=== PATIENT | female | born 1960 | race Caucasian/White ===

== ENCOUNTER → 2018-09-07 11:04 | Outpatient (CLI) | payer BC, SELFPAY ==
--- NOTE | 2018-09-07 11:14 | XR_ITS ---
XR hip LT 2-3V w/pelvis Ordering Physician: Petros Adams MD Patient Age: 57 years: Female HISTORY: ITS.REASON: follow up from reducing in ER 08/22/18 Hip replacement in 2005. Dislocated a few weeks ago TECHNIQUE: . AP pelvis AP and crosstable lateral left hip COMPARISON :08/22/2018 left hip FINDINGS Patient had dislocation at the left hip prosthesis 08/22/2018. On today's study the Left hip prosthesis demonstrates satisfactory relationships... The femoral head articulates satisfactorily with the acetabular component . The acetabular cup appears to be in good position AP view. HoweverOn Cross table lateral it seems to have a rather shallow orientation which may possibly 2. Dislocation if recurrent. There is mild accentuation of the concavity just superior to the left acetabulum from the site of dislocated femoral head . Osseous pelvis and right hip appear intact. Proximal left femur and intramedullary component of the terminal prosthesis appear intact IMPRESSION: Left hip replacement. The recent dislocation apparent reduced with femoral head component articulating satisfactorily with the acetabular cup component on today's study. Perhaps slight shallow orientation of the acetabular cup on the crosstable lateral view
== END ==
PROVIDERS: Visit Provider Orthopaedic Surgery
DX: S73.005A Unspecified dislocation of left hip, initial encounter (principal)
CPT/HCPCS: 73502

== ENCOUNTER → 2018-11-04 10:20 | Outpatient (CLI) | payer BC, SELFPAY ==
--- NOTE | 2018-11-04 10:22 | MM_ITS ---
MM Dig screening mamm BI w/CAD ORDERING PHYSICIAN : MORIAH Gray PATIENT AGE: 57 years GENDER: Female COMPARISON: Over 2011 digital mammogram May 2008 film screen mammogram INDICATION: ITS annual: Screening mammogram no hormones. No new complaints. HISTORY. Mother with breast cancer age 34 TECHNIQUE: Standard CC and MLO images were obtained. R2 CAD reviewed. FINDINGS: Mild to moderate residual fibroglandular elements towards superior breast bilaterally but no suspicious focal areas of concern. No dominant or suspicious mass. No suspicious calcifications. A progressive fatty replacement when compared back to 2012 and especially when compared back to May 2008 RIGHT BREAST:No new findings of concern LEFT BREAST:No new findings The slightly greater density towards the lateral retroareolar region on cc view is similar to 2012 and 2018 study. No significant new findings. Stable mild asymmetry. IMPRESSION: No significant new findings.. Follow-up in one year recommended No areas of significant concern Progressive fatty replacement since prior studies BI-RADS Category: 2 Benign Finding(s) RECOMMENDED FOLLOW-UP: 1YR 1 YEAR FOLLOW-UP (A letter has been sent to the patient regarding results of the study.) .
== END ==
PROVIDERS: PCP Physician Assistant; Visit Provider Physician Assistant
DX: Z12.31 Encounter for screening mammogram for malignant neoplasm of breast (principal)
CPT/HCPCS: 77067

== ENCOUNTER → 2020-03-20 09:35 | Outpatient (CLI) | payer BC, SELFPAY ==
[2020-03-20 09:40] LABS: Microscopic, Urine URINE MICROSCOPIC (MICROSCOPIC)
--- NOTE | 2020-03-20 09:54 | XR_ITS ---
PROCEDURE: XR CHEST 2V CLINICAL HISTORY: pre-op clearance Smoker COMPARISON: No exams were available for comparison FINDINGS: The cardiomediastinal silhouette and pulmonary vascularity are within normal limits. Calcified granuloma is present in the left lower lobe. The remaining lungs are clear. No acute bony abnormalities. IMPRESSION: No acute findings. Dictated by: Narciso Caputo MD 03/20/2020 16:10 Electronically signed by Narciso Caputo MD in [place] 03/20/2020 16:10
--- NOTE | 2020-03-20 10:39 | ECG_ITS ---
APPROVED REPORT Exam: Resting ECG HR:63 bpm ECG Measurements Heart Rate 63 AXES IL 130 P 60 QRSd 84 QRS 22 QT 410 T 43 QTc 419 <Conclusion> Normal sinus rhythm Possible Left atrial enlargement Low voltage QRS Incomplete RBBB NDST-T Changes Abnormal ECG Electronically signed by : Vinay Ibarra, 03/20/2020 10:49:34
[2020-03-20 10:57] LABS: Basophils # 0.3 K/mm3 (0-0.2); Basophils % 3.4 % (0.1-2.0); Eosinophils # 0.3 K/mm3 (0.0-0.4); Eosinophils % 3.6 % (0.1-12.0); Hematocrit 45.2 % (37.0-47.0); Hemoglobin 15.1 g/dL (12.2-16.2); Lymphocytes # 2.4 K/mm3 (0.7-4.5); Lymphocytes % 29.6 % (10-50); Mean Corpuscular HGB Conc 33.3 g/dL (31.8-35.4); Mean Corpuscular Hemoglobin 27.7 pg (27.0-31.2); Mean Platelet Volume 12.8 fl (7.4-10.4); Monocytes # 0.5 K/mm3 (0.1-1.0); Monocytes % 6.6 % (1.7-9.3); Neutrophils # 4.7 K/mm3 (1.8-7.8); Neutrophils % 56.7 % (37.0-80.0); Platelet Count 183 K/mm3 (142-424); Red Blood Count 5.45 M/mm3 (4.20-5.40); Red Cell Distribution Width 16.4 % (11.5-17.5); White Blood Count 8.2 K/mm3 (4.8-10.8)
[2020-03-20 11:22] LABS: Appearance,Urine CLEAR (Clear); Bilirubin,Urine Negative (Negative); Blood, Urine TRACE-I (Negative); Color,Urine YELLOW (Yellow); Glucose,Urine (UA) Negative (Negative); Ketones,Urine Negative (Negative); Leukocyte Esterase,Urine Negative (Negative); Nitrate,Urine Negative (Negative); PH,Urine 5.5 (5.0-8.5); Protein,Urine Negative (Negative); Specific Gravity, Urine 1.025 (1.005-1.030); Urobilinogen,Urine 0.2 EU/dl (0.2)
[2020-03-20 11:38] LABS: Activated Partial Thrombo Time 25.2 seconds (23.6-34.0); INR 0.97 (0.9-1.1); Prothrombin Time 9.9 seconds (9.4-11.8)
[2020-03-20 12:07] LABS: Bacteria,Urine Trace /lpf; Hyaline Casts,Urine Occasional #/lpf (0); RBC,Urine Occasional #/hpf (0-3)
[2020-03-20 13:00] LABS: Alanine Aminotransferase 13 U/L (12-78); Albumin Level 4.5 g/dl (3.5-5.0); Albumin/Globulin Ratio 1.6 (1.1-1.8); Alkaline Phosphatase 57 U/L (38-126); Anion Gap 10.6 mEq/L (5-15); Aspartate Amino Transferase 17 U/L (14-36); Bilirubin,Total 0.3 mg/dl (0.2-1.3); Blood Urea Nitrogen 12 mg/dl (7-17); Calcium 9.8 mg/dl (8.4-10.2); Carbon Dioxide 27 mmol/L (22.0-30.0); Chloride 103 mmol/L (98-107); Estimated Glomerular Filt Rate 86 ml/min (>60); GFR (African American) 104 ML/MIN (>60); Globulin 2.9 g/dL (1.3-3.2); Glucose 114 mg/dl (74-100); Potassium 4.6 mmoL/L (3.5-5.1); Sodium 136 mmol/L (136-145); Total Protein,Serum 7.4 g/dl (6.3-8.2)
[2020-03-20 13:16] LABS: Hemoglobin A1C 5.8 % (4.0-6.0)
[2020-03-21 12:25] LABS: Prealbumin 21 mg/dL (10-36)
== END ==
PROVIDERS: Visit Provider Physician Assistant
DX: Z01.818 Encounter for other preprocedural examination (principal); M25.561 Pain in right knee
CPT/HCPCS: 36415; 71046; 80053; 81001; 83036; 84134; 85025; 85610; 85730; 93005

== ENCOUNTER → 2020-04-04 10:29 | Outpatient (CLI) | payer BC, SELFPAY ==
--- NOTE | 2020-04-04 10:30 | NM_ITS ---
APPROVED REPORT Exam: Nuclear Stress Test Indication: abn ecg..pre-op knee surgery Patient Location: Outpatient Stress Tech: Senait Monet [place] Tech:Kyung Gold DREAJama[place] RT(R)(N) Ht: 5 ft 3 in Wt: 185 lbs HR: 63 bpm BP: 125/81 mmHg BSA: 1.87 m2 BMI: 32.7 History: abn ecg..pre-op knee surgery Procedure: Patient received a 0.4 mg of intravenous Lexiscan, resting heart rate 63 bpm, resting blood pressure 125/81 mmHg, with Lexiscan maximum heart rate achived was 107 bpm which is Less than 85 % of the maximum predicted heart rate and blood pressure was 132/75 mmHg. With Lexiscan, patient denied any complaint of chest pain. Electrocardiogram Resting electrocardiogram showed sinus rhythm, with Lexiscan there is less than 1.[address] segment depression noted from the baseline EKG. The EKG portion of the Lexiscan Myoview is nondiagnostic. Cardiac Stress and Resting SPECT Images: Cardiac Stress and Resting SPECT images were obtained using technetium 99m Myoview 31.7 mCi stress and 10.32 mCi at rest. Gated SPECT with analysis of segmental wall motion and calculation of the ejection fraction also done. Cardiac stress and resting SPECT images show uniform myocardial activity without segmental perfusion abnormality, computer derived ejection fraction is 61% with no regional wall motion abnormality, right ventricle is normal size and contractility. Conclusion: 1. The EKG portion of the Lexiscan Myoview is nondiagnostic. 2. No scintigraphic evidence of reversible ischemia seen, computer derived ejection fraction is 61% with no regional wall motion abnormality, right ventricle is normal size and contractility. 3. Normal Lexiscan Myoview study. Electronically signed by : Yordan Holman, 04/04/2020 14:17:28
--- NOTE | 2020-04-04 11:11 | CA_ITS ---
APPROVED REPORT EXAM: Comprehensive 2D, Doppler, and color-flow Echocardiogram Director Of Photography: Ela Anders RDCS Ht: 5 ft 3 in Wt: 185lbs BSA: 1.87 BP: 127/74 mmHg Indications: ABN EKG PRE-OP KNEE 2D Dimensions LVOT 1.82 cm (M/F) 1.5-2.5 M-Mode Dimensions RVDd 2.45 cm (0.9-2.6) LVDd 4.67 cm (3.5-5.7) LVDs 3.62 cm (3.5-5.7) IVSd 0.84 cm (0.6-1.1) PWd 0.56 cm (0.6-1.1) EF (Teich) 45.20% FS 22.50% EDV (Teich) 100.80 mL ESV (Teich) 55.20 mL LV Diastology E/A Ratio 1.36 Mitral Valve MV A Velocity 44.00 (40-130 cm/s) Left Ventricle Left atrium is normal size, left ventricle is normal size, there is no concentric left ventricular hypertrophy, visually estimated ejection fraction 55% with no regional wall motion abnormality. Diastolic parameters are within normal range. Right Ventricle Right atrium right ventricle is normal size and contractility. Aortic Valve Aortic valve is grossly normal, there is no aortic stenosis aortic insufficiency. Mitral Valve Mitral valve is grossly normal, there is mild mitral regurgitation. Tricuspid Valve Tricuspid valve is grossly normal, there is mild tricuspid regurgitation. Tricuspid regurgitation jet velocity is inadequate for calculation of the right ventricular systolic pressure. Pulmonic Valve Pulmonic valve is poorly visualized. Great Vessels Aortic root is normal size. Pericardium No significant pericardial effusion noted. Conclusion 1. Normal left ventricular size, preserved left ventricular systolic function, visually estimated ejection fraction 55% with no regional wall motion abnormality, diastolic parameters are within normal range. 2. Mild mitral and tricuspid regurgitation. 3. No significant pericardial effusion noted. Electronically signed by : Yordan Holman, 04/04/2020 15:14:56
--- NOTE | 2020-04-04 12:17 | HMH.ITSHM ---
Current Home Medications as stated by this patient Jenni Hill or outside medical sales representative. [] diclofenac gabapentin
--- NOTE | 2020-04-04 13:30 | CA_ITS ---
APPROVED REPORT Exam: Pharmacologic Technologist: Senait Monet, Ht: 5 ft 3 in Wt: 185 lbs BSA: 1.87 m2 Indications: Abn EKG Medical History Medications: Gabapentin,,,,, Diclofenac,,,,, OxYCODONE,,,,, Cardiac Risk Factors: FHX of CAD, Smoking Stress Test Details Test: LEXISCAN Reason for pharmacologic stress test: physical limitation. HR Resting HR: 70 bpm Max Heart Rate (APMHR): 162 bpm Max HR Achieved: 108 bpm Target HR (85% APMHR): 137 bpm % of APMHR: 66 BP Resting BP: 125.0/81.0 mmHg Max BP: 134.0/79.0 mmHg ECG Clinical Exercise duration: 04:10 min Highest Stage Achieved: Stress ECG Conclusion positive for SOA, malaise, no CP rare PAC, occ fusion beat Exaggeration of baseline ST-T abns inferiorly, NS ST-T changes laterally non diagnostic lexiscan stress myoview images reported separately Electronically signed by : Yordan Holman, 04/04/2020 14:03:32
== END ==
PROVIDERS: PCP Physician Assistant; Visit Provider Physician Assistant
DX: Z01.810 Encounter for preprocedural cardiovascular examination (principal); R94.31 Abnormal electrocardiogram [ECG] [EKG]; Z72.0 Tobacco use
CPT/HCPCS: 78452; 93017; 93306; A9502; J2785

== ENCOUNTER → 2020-04-09 09:48 | Outpatient (CLI) | payer BC, SELFPAY ==
--- NOTE | 2020-04-09 09:48 | MM_ITS ---
PROCEDURE: MM DIG SCREENING MAMM BI W/CAD Digital Breast Tomosynthesis Included CLINICAL INDICATION: Screening mammogram There is a history of breast cancer in the patient's mother diagnosed at age 34. COMPARISON: DIGMAMMS MAMMOGRAM SCREEN-SOLUTION MAKE UP OPERATOR N/C from 05/25/2008 [facility] DIGITAL MAMM-SCREEN BILATERAL from 12/01/2011 [facility] MM Dig screening mamm BI w/CAD from 11/04/2018 TECHNIQUE: Standard CC and MLO images and 3D Tomosynthesis was obtained. R2 CAD reviewed. FINDINGS: Scattered fibroglandular densities are seen throughout both breasts and the findings are bilateral and symmetrical. There is a mole marker on each breast. There is no suspicious lesion in either breast and no suspicious microcalcifications. IMPRESSION: Fibrofatty parenchyma with no suspicious lesions seen BI-RAD Category: 2 Benign Finding(s) FOLLOW-UP: 1 Year Follow-up (A letter has been sent to the patient regarding results of the study.) Dictated by: Dr. Jonh Ladd MD 04/10/2020 19:[address] Jonh Ladd MD in [place] 04/10/2020 19:08
== END ==
PROVIDERS: PCP Physician Assistant; Visit Provider Physician Assistant
DX: Z12.31 Encounter for screening mammogram for malignant neoplasm of breast (principal)
CPT/HCPCS: 77063; 77067

== ENCOUNTER → 2020-12-06 13:41 | Outpatient (CLI) | payer BC, SELFPAY ==
[2020-12-10 15:37] LABS: Chromium, Plasma 4.4 ug/L (0.1-2.1)
[2020-12-10 19:28] LABS: Cobalt, Plasma 2.3 ug/L (0.0-0.9)
== END ==
PROVIDERS: Visit Provider Orthopaedic Surgery
DX: T84.84XA Pain due to internal orthopedic prosthetic devices, implants and grafts, initial encounter (principal)
CPT/HCPCS: 36415; 82495; 83018

== ENCOUNTER 2021-01-04 08:50 | Emergency (ER) | payer BC, SELFPAY ==
[2021-01-04] VITALS (20 sets, daily range): BP systolic 117–150; BP diastolic 67–91; PULSE 63–87; RESP 9–16; TEMP 36.6; O2SAT 87–100; BMI 35.4
--- NOTE | 2021-01-04 09:07 | XR_ITS ---
PROCEDURE: XR HIP LT 2-3V W/PELVIS CLINICAL INDICATION: PAIN COMPARISON: CR HIPCMLT XR hip LT 2-3V w/pelvis from 09/07/2018 FINDINGS: There is a dislocated left hip prosthesis. The femur is dislocated superiorly and posterior to the acetabular component. There is generalized vascular calcification. No obvious fracture. IMPRESSION: Status post left hip hemiarthroplasty with dislocated femoral component Dictated by: Narciso Caputo MD 01/04/2021 09:40 Narciso Caputo MD in [place] 01/04/2021 09:40
--- NOTE | 2021-01-04 09:23 | PC.NURSE ---
pt in ct
--- NOTE | 2021-01-04 09:34 | PC.NURSE ---
pt back from [facility] and was moved to room 2 so she could have her put back in place
--- NOTE | 2021-01-04 09:38 | HMH.EDGENADL ---
ED Disposition Clinical Impression: Hip dislocation, left, Presence of left artificial hip joint Disposition: Home, Self-Care Condition on Discharge: Good Referrals: Brittany Almaguer PA [Primary Care Provider] - - Critical Care Critical Care Time: No Attestation: On 01/04/21, the high probability of a clinically significant, sudden or life threatening deterioration of the following system(s) required my full and direct attention, intervention and personal management. The time I documented below is in addition to time spent performing reported procedures but includes the following listed in this critical care notation. Medical Decision Making - Medical Records Medical records reviewed: Yes: I reviewed the patient's medical records. - Miguel Inquiry Pt receiving controlled substance: No Vital Signs: 01/04/21 08:51 01/04/21 09:37 Temperature 98 F Temperature Source Oral Pulse Rate [Radial] 80 71 Respiratory Rate 16 14 Blood Pressure [Right Arm] 123/80 130/80 Blood Pressure Mean [Right Arm] 94 96 Blood Pressure Source [Right Arm] Automatic Cuff Blood Pressure Position [Right Arm] Sitting Supine 02 Sat by Pulse Oximetry 98 95 Oxygen Delivery Method Room Air Room Air Orders (Tests/Meds): ED MEDICATIONS Discontinued Medications Generic Name Dose Route Start Last Admin Trade Name Freq PRN Reason Stop Dose Admin Morphine Sulfate 4 mg 01/04/21 09:14 01/04/21 09:14 Morphine 4mg/Ml Syringe IV 01/04/21 09:15 4 mg ONCE ONE Administration Ondansetron HCl 4 mg 01/04/21 09:14 01/04/21 09:14 Ondansetron 4mg/2ml Vial IV 01/04/21 09:15 4 mg ONCE ONE Administration ORDERS Category Date Time Status XR hip LT 2-3V w/pelvis Stat Exams 01/04/21 09:53 Ordered - Radiology Data #1 Image(s): Hip Image Reviewed: Yes I reviewed the patient's radiology results Preliminary Findings: Abnormal superiorly dislocated L.artificial hip; no acute fx General Adult HPI - General Chief complaint: PAIN Stated complaint: hip pain, possible displacement Time Seen by Provider: 01/04/21 09:20 Mode of Arrival: Ambulatory Limitations: No Limitations Description of Symptoms (Recalled from ER Triage Doc. by RN): TO ED PER PVT CAR WITH C/O LT SIDE HIP PAIN SINCE 4AM STATES I THINK MY HIP IS OUT OF SHOCKET HX OF HIP REPLACEMENT. PT STATES SHE WAS TURNING OVER AND PUSHED UP WITH FEET AND EXPERIENCED PAIN. SCHEDULED FOR ANOTHER HIP SURGERY LT IN JANUARY. - History of Present Illness HPI narrative: -year-old female that presents with left hip pain after rolling over in the bed. Patient reports having had left hip replacement and has had pain like this previously whenever she dislocated her hip. Symptoms began approximately 5 hours prior to arrival patient thought she could get the hip back in place herself. She was unable to do so. Pain is sharp constant worse with movement does not radiate. No other injuries no other or complaints. Patient denies any fever chills chest pain shortness of breath or headache/focal neurologic deficit. - Related Data Home Medications Medication Instructions Recorded Confirmed Diclofenac Sodium [Diclofenac 75mg 75 mg PO BID 08/22/18 01/04/21 Tab] oxycodone-acetaminophen 5 mg-325 1 tab PO BID PRN tab 03/20/20 01/04/21 mg tablet gabapentin enacarbil 600 mg 600 mg PO TID tab 04/03/20 01/04/21 tablet,extended release Allergies Allergy/AdvReac Type Severity Reaction Status Date / Time tramadol Allergy Mild Verified 04/12/20 11:01 [facility] History - Hepatitis A Screen Drug use history?: No High risk sexual behaviors?: No History of sexually transmitted infection?: No Currently employed?: No Childcare worker?: No Do you have indoor plumbing?: Yes Do you have electricity?: Yes Attestation statement:: This patient has been screened for Hepatitis A risk factors. I have reviewed the patient's past medical history: Yes Ot
--- NOTE | 2021-01-04 09:52 | PC.NURSE ---
pt placed on non rebreather
--- NOTE | 2021-01-04 09:53 | XR_ITS ---
PROCEDURE: XR HIP LT 2-3V W/PELVIS CLINICAL INDICATION: post reduction COMPARISON: CR HIPCMLT XR hip LT 2-3V w/pelvis from 09/07/2018 CR XR HIP LT 2-3V W/PELVIS from 01/04/2021 FINDINGS: There has been interval reduction the hemiarthroplasty dislocation. There is good alignment. No acute fracture apparent. IMPRESSION: Interval reduction femoral prosthesis dislocation Dictated by: Narciso Caputo MD 01/04/2021 11:33 Narciso Caputo MD in [place] 01/04/2021 11:33
--- NOTE | 2021-01-04 10:24 | PC.NURSE ---
pt responsive to verbal stimuli
--- NOTE | 2021-01-04 10:45 | PC.NURSE ---
pt awake taking fluids, SO at bedside.
== END 2021-01-04 12:18 | disposition home or self-care (01) ==
PROVIDERS: Emergency Provider Emergency Medicine; PCP Physician Assistant
DX: T84.021A Dislocation of internal left hip prosthesis, initial encounter (principal); X50.9XXA Other and unspecified overexertion or strenuous movements or postures, initial encounter; Y92.013 Bedroom of single-family (private) house as the place of occurrence of the external cause
CPT/HCPCS: 27266; 73502; 96365; 96375; 96376; 99152; 99153; 99285; J2405

== ENCOUNTER → 2021-01-14 11:08 | Outpatient (CLI) | payer BC, SELFPAY ==
[2021-01-14 11:15] LABS: Microscopic, Urine URINE MICROSCOPIC (MICROSCOPIC)
--- NOTE | 2021-01-14 11:40 | ECG_ITS ---
APPROVED REPORT Exam: Resting ECG HR:69 bpm ECG Measurements Heart Rate 69 AXES MO 132 P 65 QRSd 86 QRS 77 QT 376 T -2 QTc 402 Conclusion Sinus rhythm with premature supraventricular complexes Possible Anterior infarct, age undetermined Abnormal ECG Electronically signed by : Cirilo Carrillo, 01/15/2021 17:48:00
--- NOTE | 2021-01-14 11:41 | XR_ITS ---
PROCEDURE: XR CHEST 2V CLINICAL HISTORY: HX OF SOB UPON EXERTION, PREOPERATIVE COMPARISON: CR XR CHEST 2V from 03/20/2020 FINDINGS: The cardiomediastinal silhouette and pulmonary vascularity are within normal limits. The lungs are clear without infiltrates, suspicious nodules, or pleural effusions. There are calcified granulomata left lower lobe and there are tiny calcified left hilar nodes. No acute bony abnormalities. IMPRESSION: No acute findings. Dictated by: Dr. Jonh Ladd MD 01/14/2021 12:28 Dr. Jonh Ladd MD in [place] 01/14/2021 12:28
[2021-01-14 11:50] LABS: Basophils # 0.2 K/mm3 (0-0.2); Basophils % 1.5 % (0.1-2.0); Eosinophils # 0.2 K/mm3 (0.0-0.4); Eosinophils % 2.1 % (0.1-12.0); Hematocrit 48.7 % (37.0-47.0); Hemoglobin 16.2 g/dL (12.2-16.2); Lymphocytes # 2.9 K/mm3 (0.7-4.5); Lymphocytes % 29.1 % (10-50); Mean Corpuscular HGB Conc 33.2 g/dL (31.8-35.4); Mean Corpuscular Hemoglobin 29.8 pg (27.0-31.2); Mean Corpuscular Volume 89.9 fl (81-99); Mean Platelet Volume 11.6 fl (7.4-10.4); Monocytes # 0.7 K/mm3 (0.1-1.0); Monocytes % 6.5 % (1.7-9.3); Neutrophils % 60.7 % (37.0-80.0); Platelet Count 170 K/mm3 (142-424); Red Blood Count 5.41 M/mm3 (4.20-5.40); White Blood Count 9.9 K/mm3 (4.8-10.8)
[2021-01-14 11:55] LABS: Appearance,Urine CLEAR (Clear); Bilirubin,Urine Negative (Negative); Blood, Urine 1+ (Negative); Color,Urine YELLOW (Yellow); Glucose,Urine (UA) Negative (Negative); Ketones,Urine Negative (Negative); Leukocyte Esterase,Urine Negative (Negative); Nitrate,Urine Negative (Negative); Protein,Urine Negative (Negative); Urobilinogen,Urine 0.2 EU/dl (0.2)
[2021-01-14 12:05] LABS: Hemoglobin A1C 6.2 % (4.0-6.0)
[2021-01-14 12:11] LABS: Activated Partial Thrombo Time 26.8 seconds (22.8-30.6); INR 0.93 (0.9-1.1)
[2021-01-14 12:18] LABS: Alanine Aminotransferase 16 U/L (12-78); Albumin Level 4.6 g/dl (3.5-5.0); Albumin/Globulin Ratio 1.6 (1.1-1.8); Alkaline Phosphatase 63 U/L (38-126); Anion Gap 12.4 mEq/L (5-15); Aspartate Amino Transferase 20 U/L (14-36); Bilirubin,Total 0.5 mg/dl (0.2-1.3); Blood Urea Nitrogen 12 mg/dl (7-17); Calcium 10.1 mg/dl (8.4-10.2); Carbon Dioxide 26 mmol/L (22.0-30.0); Chloride 105 mmol/L (98-107); Estimated Glomerular Filt Rate 86 ml/min (>60); GFR (African American) 104 ML/MIN (>60); Globulin 2.9 g/dL (1.3-3.2); Glucose 121 mg/dl (74-100); Potassium 4.4 mmoL/L (3.5-5.1); Sodium 139 mmol/L (136-145); Total Protein,Serum 7.5 g/dl (6.3-8.2)
[2021-01-14 12:39] LABS: WBC,Urine Occasional #/hpf (0-3)
[2021-01-14 12:40] LABS: Bacteria,Urine Trace /lpf
[2021-01-15 11:22] LABS: Prealbumin 23 mg/dL (10-36)
== END ==
PROVIDERS: Emergency Medicine; Visit Provider Orthopaedic Surgery
DX: Z01.818 Encounter for other preprocedural examination (principal); E87.6 Hypokalemia
CPT/HCPCS: 36415; 71046; 80053; 81001; 83036; 84134; 85025; 85610; 85730; 93005

== ENCOUNTER → 2021-06-13 10:02 | Outpatient (CLI) | payer BC, SELFPAY ==
[2021-06-18 20:12] LABS: Alprazolam Negative (Cutoff=100); Benzodiazepines Negative ng/mL (Cutoff=100); Clonazepam Negative (Cutoff=100); Flurazepam Negative (Cutoff=100); Gabapentin,Urine 406.7 ug/mL (.); Lorazepam Negative (Cutoff=100); Midazolam Negative (Cutoff=100); Opiates Negative ng/mL (Cutoff=100); Temazepam Negative (Cutoff=100); Triazolam Negative (Cutoff=100)
[2021-06-20 08:17] LABS: Cannabinoid Negative (Cutoff=10)
[2021-06-24 11:04] LABS: Buprenorphine NEGATIVE
== END ==
PROVIDERS: Visit Provider Anesthesiology Pain Medicine
DX: Z79.899 Other long term (current) drug therapy (principal)
CPT/HCPCS: 80307; 80346; 80348; 80349; 80361; G0480

== ENCOUNTER 2021-10-15 10:00 | Outpatient (RCR) | payer BC, SELFPAY | END 2021-10-15 10:05 | disposition home or self-care (01) | LOC: PT 10:00 | PROVIDERS: PCP Physician Assistant; Visit Provider Orthopaedic Surgery | DX: M25.552 Pain in left hip (principal); Z96.642 Presence of left artificial hip joint | CPT/HCPCS: 97010; 97014; 97110; 97163; 97164; G0283 ==

== ENCOUNTER → 2022-01-08 13:37 | Outpatient (CLI) | payer BC, SELFPAY ==
[2022-01-12 14:17] LABS: Cobalt, Plasma <1.0 ug/L (0.0-0.9)
== END ==
PROVIDERS: Visit Provider Orthopaedic Surgery
DX: T84.84XA Pain due to internal orthopedic prosthetic devices, implants and grafts, initial encounter (principal)
CPT/HCPCS: 36415; 82495; 83018

== ENCOUNTER 2022-02-05 09:00 | Outpatient (RCR) | payer BC, SELFPAY | END 2022-02-05 09:05 | disposition home or self-care (01) | LOC: PT 09:00 | PROVIDERS: PCP Nurse Practitioner Family; Visit Provider Orthopaedic Surgery | DX: M25.552 Pain in left hip (principal); Z96.642 Presence of left artificial hip joint | CPT/HCPCS: 97010; 97014; 97110; 97112; 97140; 97163; 97164; 97530; G0283 ==

== ENCOUNTER → 2022-06-30 09:49 | Outpatient (CLI) | payer BC, SELFPAY | PROVIDERS: PCP Emergency Medicine; Visit Provider Surgery | DX: Z01.812 Encounter for preprocedural laboratory examination (principal); Z20.822 Contact with and (suspected) exposure to COVID-19; Z12.11 Encounter for screening for malignant neoplasm of colon | CPT/HCPCS: C9803; U0003; U0005 ==

== ENCOUNTER 2022-07-03 07:28 | Day surgery (SDC) | payer BC, SELFPAY ==
[2022-07-03 08:03] VITALS: BP 132/87; PULSE 74; RESP 18; TEMP 36.2; O2SAT 94
[2022-07-03 08:21] VITALS: O2SAT 94
--- NOTE | 2022-07-03 08:43 | EXP.ANES.CKL ---
[facility] Medical History (Updated 06/30/22 @ 12:25 by Rakel Hermosillo RN) Cataract Cervical cancer Preoperative clearance Tobacco dependence syndrome Surgical History (Updated 06/30/22 @ 12:25 by Rakel Hermosillo RN) History of hysterectomy History of knee replacement History of right hip replacement History of tonsillectomy Family History (Updated 06/30/22 @ 12:26 by Rakel Hermosillo RN) Other Family history of cancer Family history of hypertension Social History (Updated 06/30/22 @ 12:27 by Rakel Hermosillo RN) Smoking Status: Current every day smoker tobacco type: cigarettes packs per day: 1 alcohol intake: never substance use type: denies use current occupational status: employed Travel in the last 8 weeks: None caffeine: Yes [facility] Anesthesia Checklist Patient Identification Patient Identification: Arm Band Structural Data Admitted From: Home Planned Operative Procedure/s: colonoscopy Consent for Planned Operative Procedure(s) Verified: Yes Verified Documents: Surgical Consent and History and Physical NPO Status Verified Time NPO: 00:00 Additional verifications Anesthesia Reactions: Yes (ponv) Airway Assessment C-Spine Mobility Assessed: Yes TMJ Mobility Assessed: Yes Dentition: Good Dentition Neurological Assessment Level of Consciousness: Awake and Alert Anesthesia Plan Anesthesia Risk discussed: Yes Anesthesia Plan: Verified ASA Class: II Anesthesia Type: MAC
--- NOTE | 2022-07-03 09:14 | HMH.SCOPE ---
Procedure: Date: 07/03/22 Patient Date of :: 1960 Procedure Performed:: Total colonoscopy to terminal ileum with polypectomy using snare and biopsy Indications:: Patient is a 61-year-old female. She has opted for Cologuard screening for surveillance. She had this performed several times. Apparently most recent Cologuard screening was inconclusive. She was scheduled for colonoscopy Performing Provider:: Mark Call MD Referring Provider:: Nestor Gamez MD Sedation:: MAC sedation Procedure:: Patient was taken to endoscopy procedure room. She was positioned in lateral decubitus position. Adequate intravenous sedation was achieved with anesthesia titration propofol. Variable stiffness Olympus colonoscope was inserted via the anus. It was advanced to the cecum. Ileocecal valve and appendiceal orifice were clearly identified. Colonic preparation was good and visualization was good. Colonoscope was advanced a short distance into the terminal ileum which appeared grossly normal. Colonoscope was slowly withdrawn through the colon with careful surveillance. In the distal sigmoid colon there was a tiny diminutive polyp removed with biopsy forceps. In the rectosigmoid colon there was a tiny diminutive polyp removed with biopsy forceps. In the rectum there were several hyperplastic appearing polyps, 2 removed with snare and 2 with biopsy forceps. There was one that appeared somewhat potentially adenomatous measuring about 3 mm. Retroflexion within the rectum revealed nonbleeding internal hemorrhoids. Colonoscope was withdrawn. Findings:: Polyps as noted above, small and diminutive. 1 potentially adenomatous appearing rectal polyp measuring about 3 mm Recommendations:: Follow-up colonoscopy based on pathology. Likely 5 years Complications:: None immediately apparent Estimated blood obtained (mL): 3
[2022-07-03 09:25] VITALS: BP 128/81; PULSE 82; RESP 16; O2SAT 97
[2022-07-03 09:35] VITALS: BP 131/84; BP 157/88; PULSE 75; PULSE 83; RESP 16; TEMP 36.4; O2SAT 95; O2SAT 97
[2022-07-03 09:45] VITALS: BP 137/99; PULSE 83; RESP 16; TEMP 36.4; O2SAT 98
== END 2022-07-03 09:45 | disposition home or self-care (01) ==
PROVIDERS: PCP Emergency Medicine; Visit Provider Surgery
PROC: 0DJD8ZZ Inspection of Lower Intestinal Tract, Via Natural or Artificial Opening Endoscopic (ICD-10-PCS; CPT 45380; principal; 2022-07-03 08:30)
DX: Z12.11 Encounter for screening for malignant neoplasm of colon (principal); K63.5 Polyp of colon; Z72.0 Tobacco use; Z79.899 Other long term (current) drug therapy
CPT/HCPCS: 45380; 45385; J2704

== ENCOUNTER → 2022-07-05 10:17 | Outpatient (CLI) | payer BC, SELFPAY | PROVIDERS: PCP Emergency Medicine; Visit Provider Orthopaedic Surgery | DX: T84.84XA Pain due to internal orthopedic prosthetic devices, implants and grafts, initial encounter (principal) | CPT/HCPCS: 36415 ==

== ENCOUNTER 2022-07-30 09:00 | Outpatient (RCR) | payer BC, SELFPAY | END 2022-07-30 09:05 | disposition home or self-care (01) | LOC: PT 09:00 | PROVIDERS: PCP Nurse Practitioner Family; Visit Provider Anesthesiology Pain Medicine | DX: M25.552 Pain in left hip (principal); M25.561 Pain in right knee | CPT/HCPCS: 97010; 97014; 97110; 97112; 97140; 97163; 97164; 97530; 97535; G0283 ==

== ENCOUNTER → 2023-10-11 08:18 | Outpatient (CLI) | payer MEDICARE, BC, SELFPAY ==
[2023-10-11 18:29] LABS: Influenza A, PCR Not Detected (NotDetected); Influenza B, PCR Not Detected (NotDetected)
[2023-10-11 20:29] LABS: Coronavirus 19, PCR Detected (NotDetected)
== END ==
PROVIDERS: PCP Student in an Organized Health Care Education/Training Program; Visit Provider Student in an Organized Health Care Education/Training Program
DX: R05.9 Cough, unspecified (principal); U07.1 COVID-19
CPT/HCPCS: 87636

== ENCOUNTER 2025-04-03 12:00 | Outpatient (CLI) | payer MEDICARE, SELFPAY ==
--- OUTSIDE RECORDS SUMMARY | 2025-01-30 06:15 | XMS_ITS ---
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 Name Role Phone Randy David Primary Care Provider [phone] Jah Jiménez Unavailable [phone] Dom Garsia Unavailable [phone] Allergies No Known Allergies REASON FOR VISIT OFFICE VISIT Medications Medication SIG (Take, Route, Frequency, Duration) Notes Start Date End Date Status Diclofenac Sodium 75 MG TAKE 1 TABLET BY MOUTH EVERY 12 HOURS WITH FOOD Orally Twice a day for 30 days 04/30/2025 Active Narcan 4 MG/0.1ML as directed Nasally 09/14/2024 Active Albuterol Sulfate HFA 108 (90 Base) MCG/ACT Inhalation for 30 Days Active predniSONE 20 MG Oral for 5 Days Not-Taking Azithromycin 250 MG Oral for 5 Days Active Meloxicam 15 MG Oral for 4 Days Not-Taking Fnfbkkypc-Ikptalnr-DL 30-2-10 MG/5ML Oral for 4 Days Not-Taking oxyCODONE-Acetaminophen 5-325 MG 1tablet Orally twice daily for 30 days 01/05/2025 03/02/2025 Active Benzonatate 100 MG Oral for 10 Days Active Social History Tobacco use other than smoking: Question Answer Notes Are you an other tobacco user? No Vital Signs Blood pressure systolic 136 mm Hg 01/31/20 25 Blood pressure diastolic 75 mm Hg 025 Heart Rate 76 /min 01/30/2025 Height 63 in 01/30/2025 Weight 185 lbs 01/30/2025 BMI 32.77 kg/m2 01/30/2025 Oximetry 94 % 01/30/2025 Encounters Encounter Location Date Provider Diagnosis [facility] [address] [place] [address] 01/30/2025 Jah Trubrandie Right knee pain M25.561 and Left hip pain M25.552 Assessments Encounter Date Diagnosis (ICD Code) Assessment Notes Treatment Notes Treatment Clinical Notes Section Notes 01/30/2025 Right knee pain (ICD-10 - M25.561) 01/30/2025 Left hip pain (ICD-10 - M25.552) Plan Of Treatment Medication Medication Name Sig Start Date Stop Date Notes Diclofenac Sodium 75 MG TAKE 1 TABLET BY MOUTH EVERY 12 HOURS WITH FOOD Orally Twice a day for 30 days 04/30/2025 oxyCODONE-Acetaminophen 5-32 5 MG 1tablet Orally twice daily for 30 days 01/05/2025 03/02/2025 Next Appt Details Provider Name:Jah boss, 04/24/2025 09:15:00 AM, [address] [place], [address], Progress Notes * February,aDOB:1960 (64 yo F)Acc No.[id number]:01/30/2025 Progress Notes Patient: Jenin HAMILTON Provider: Tessa Jiménez MD :1960 A ge:64 Y S ex:Female Date:01/30/2025 Address:[address] [place], [place] [id number] Pcp:David Padilla Subjective: * Chief Complaints: * 1 . OFFICE VISIT. * HPI: P ain Management: Assessment and followup F ollowup plan documented : Y es. I nterim History: Patient presents for a follow up for chronic pain management. Patient's CC: left hip,right knee and right ankle, which they score a 4/10 NRS at rest that increases to 10/10 NRS with activity. Pt describes this pain as aching,shooting,stabbing and throbbing. Pt reports that being up durning the day i ncreases this pain. Pt reports that resting and taking prescribed medication helps reduce this pain. Pt reports no changes in health history and denies any changes in medications from outside providers. Denies adverse effects to prescribed medication. Reports taking medications as prescribed. Refills for percocet and diclofenac were provided today, dates verified with JOSE. Last UDS was reviewed and was compliant for prescribed medication. Patient has benefited from Interventional Treatment in the past regarding their pain. They have not scheduled treatment at this time. We will follow up accordingly and continue medication management. Based on the physical exam and clinical findings, we will schedule 1 month follow up. Goal of treatment decrease left hip,right knee and right ankle pain. Scribe-SB. H ip/Thigh: EXAMINATION: MRI of the left hip without contrast dated 02/2019. SEDATION: None. HISTORY: Left hip dislocated 07/2018, with constant pain in the left hip and thigh. Per the patient, the hip feels warm all the time and has a noticeable indentation in the posterior thigh since dislocation. COMPARISON: No prior imaging is available for comparison. PROCEDURE: MRI of the left hip without contrast using the 3 phil magnet with Imitix protocol. Bilateral coronal T1 weighted and STIR, axial T1 and T2 weighted scans, and left-sided sagittal T2 weighted scans performed. FINDINGS: There is a large amount of image distortion and susceptibility artifact generated from the left hip prosthesis. This does limit evaluation of the left hemipelvis and left hip. There are mild arthritic changes of the right hip. There is a small amount of right joint fluid, likely within physiologic limits. The visualized hamstring tendons are grossly intact. There is colonic diverticula. The urinary bladder is distended, limiting evaluation. There is mild diffuse muscular atrophy of the pelvis. IMPRESSION: 1. Limited evaluation of the left hip due to susceptibility artifact generated from orthopedic hardware. Correlation with plain radiographs and/or CT may be beneficial for further evaluation. 2. Colonic diverticula. 3. Mild arthritic changes of the right hip with small amount of joint fluid present. * ROS: C ervical: Denies N rito pain. G eneral/Constitutional: Denies F atigue. A dmits S leep disturbance. D enies W eight gain. D enies W eight loss. E ndocrine: Denies A cne. D enies C old intolerance. R espiratory: Denies B reathing pattern. D enies C hest pain.? C ardiovascular: Denies C hest pain. D enies C hest pain at rest.? G astrointestinal: Denies A bdominal pain. D enies D ifficulty swallowing. H ematology: Denies D izziness. D enies F ever. M usculoskeletal: Admits J oint stiffness. A dmits M uscle aches.?Admits P ainful joints. A dmits S wollen joints. A dmits W eakness. P eripheral Vascular: Denies A bsent pulses in hands. D enies A bsent pulses in feet. A dmits P ainful extremities. N eurologic: Admits B alance difficulty. A dmits G ait abnormality. A dmits L ow back pain. A dmits P ain. A dmits T ingling/Numbness. ? P sychiatric: Denies A nxiety. D enies D epressed mood. ? * Medical History: C ancer/Tumor , Hypercholesterolemia. * Surgical History: T onsilectomy 1973, Hysterectomy 1992, Eye Surgery , Hip Replacement Surgery 2005, RIGHT KNEE REPLACEMENT 04/2020. * Hospitalization/Major Diagno stic Procedure: D adam Past Hospitalization. * Family History: M other: alive. F ather: , diagnosed with Cancer, Diabetes, Hypertension. M aternal Grandmother: . M aternal Grandfather: . P aternal Grandmother: . P aternal Grandfather: . * Social History: T obacco Use: T obacco Use/Smoking A re you a: current smoker. T obacco use other than smoking A re you an other tobacco user? N o. D rugs/Alcohol: D rugs H ave you used drugs other than those for medical reasons in the past 12 months??No. A lcohol Screen (Audit-C) D id you have a drink containing alcohol in the past year?: No, Points: 0, Interpretation: Negative. C affeine I ntake: 3 -4 cups per day. W eekly Consumption A mount of Beer N one, G lasses of Wine N one, N umber of mixed drinks N one. M iscellaneous: C affeine: yes, frequency:, 4 cups a day of coffee. Marital status: . H ousehold: H ousehold M arital status: w pedro, Enmanuel bindu of education: f inished high school. * Medications: T aking Benzonatate 100 MG Capsule Oral , Taking Azithromycin 250 MG Tablet Oral , Taking Albuterol Sulfate HFA 108 (90 Base) MCG/ACT Aerosol Solution Inhalation , Taking Narcan 4 MG/0.1ML Liquid as directed Nasally , Taking oxyCODONE- Acetaminophen 5-325 MG Tablet 1tablet Orally twice daily , stop date 02/01/2025, Not-Taking predniSONE 20 MG Tablet Oral , Not-Taking Meloxicam 15 MG Tablet Oral , Not- Taking Iylacsmrk-Hynukbjg-MB 30-2-10 MG/5ML Syrup Oral , Medication List reviewed and reconciled with the patient * Allergies: N .K.D.A. Objective: * Vitals: H R:76/min, BP:136/75mm Hg, Ht: 63 in, Wt:185lbs, BMI:32.77Index, Oxygen sat %:94, Pain scale:41-10, Ht-cm: 160.02 cm, Wt-k.92 kg. Assessment: * Assessment: 1. R ight knee pain - M25.561 2 . L eft hip pain - M25.552 Plan: * Treatment: * Immunizations: Immunization record has been reviewed and updated. * Preventive Medicine: Screenings: T OBACCO USE SCREENING: T he patient smoked: c igarettes, S moking tobacco was last used: t jacob, T kalyan pack years of use is: P t reports smoking 1/2 to one pack per day. . . ... .... CONTROLLED SUBSTANCES VERBAL EDUCATION ... PER RULES OF [place]- may require weaning of medication, if rules are not followed ... 1. Do not share medicine with anyone 2. Do not share other people's controlled medicine 3. Do not use your medicine to get high, binge, or as a substitute for Depression Medication 4. Please have a family or close friend help you monitor intake and how you are doing with medication 5. Please keep medication in a safe location such that others cannot access it 6. Do not sell medication 7. Take medication per as prescribed unless emergency and discussed with me 8. Do not take it upon yourself to make dosage changes 9. Do not stockpile or maritza medications 10. Do not take distantly prescribed medications Current regimen 11. Do not take illicit drugs including marijuana 12. Refrain from or consume alcohol only in moderation 13. If you develop a respiratory infection decrease dosage or call office for instructions 14. Follow rules stated in written contract 15. Do not barter medication for favors of any kind 16. Do not crush medication or use not as directed 17. Narcan has prescribed and should be available in case of accidental over sedation 18. notify me if receiving controlled medications from other physicians 19. I will ask you at each visit if you have any concerns with addiction misuse or craving of medication 20. If taking a benzodiazepine such as Xanax Ativan Valium Klonopin or Restoril there is an increase of overdose secondary to the additive power of benzodiazepine and opioids please take less at different times and if possible be mindful that this can affect your breathing. If you have over sedation please use Narcan. 21. This applies two Z drugs or sleep aids as well as gabapentinoids such as Neurontin and Lyrica and muscle relaxants 22. Regarding marijuana the governors decree does not allow for patients on chronic pain medication or other controlled medicines to use marijuana legally do not use marijuana 23. Please check and ensure that your Narcan nasal spray is not outdated if it has been please let me know I will send a new prescription if you cannot afford it or need more you can contact the [facility] addiction hotline at [phone] and they should be able to provide you with free Narcan. * * Electronic signature of Abhilash Jiménez MD on 04/03/2025 at 12:04 PM EDT Sign off status: Pending * Provider: Tessa Jiménez MD Date: 0 01/30/2025 Generated for Yuval kendrick/Da/Cataitting on: 0 04/03/2025 12:04 PM EDT History and Physical Notes * HPI (History of Present Illness) Category Sub-Category Detail Notes Category Not es Hip/Thigh EXAMINATION: MRI of the left hip without contrast dated 02/2019. SEDATION: None. HISTORY: Left hip dislocated 07/2018, with constant pain in the left hip and thigh. Per the patient, the hip feels warm all the time and has a noticeable indentation in the posterior thigh since dislocation. COMPARISON: No prior imaging is available for comparison. PROCEDURE: MRI of the left hip without contrast using the 3 phil magnet with Imitix protocol. Bilateral coronal T1 weighted and STIR, axial T1 and T2 weighted scans, and left-sided sagittal T2 weighted scans performed. FINDINGS: There is a large amount of image distortion and susceptibility artifact generated from the left hip prosthesis. This does limit evaluation of the left hemipelvis and left hip. There are mild arthritic changes of the right hip. There is a small amount of right joint fluid, likely within physiologic limits. The visualized hamstring tendons are grossly intact. There is colonic diverticula. The urinary bladder is distended, limiting evaluation. There is mild diffuse muscular atrophy of the pelvis. IMPRESSION: 1. Limited evaluation of the left hip due to susceptibility artifact generated from orthopedic hardware. Correlation with plain radiographs and/or CT may be beneficial for further evaluation. 2. Colonic diverticula. 3. Mild arthritic changes of the right hip with small amount of joint fluid present. Interim History Patient presents for a follow up for chronic pain management. Patient's CC: left hip,right knee and right ankle, which they score a 4/10 NRS at rest that increases to 10/10 NRS with activity. Pt describes this pain as aching,shooting,stab angus and throbbing. Pt reports that being up durning the day increases this pain. Pt reports that resting and taking prescribed medication helps reduce this pain. Pt reports no changes in health history and denies any changes in medications from outside providers. Denies adverse effects to prescribed medication. Reports taking medications as prescribed. Refills for percocet and diclofenac were provided today, dates verified with JOSE. Last UDS was reviewed and was compliant for prescribed medication. Patient has benefited from Interventional Treatment in the past regarding their pain. They have not scheduled treatment at this time. We will follow up accordingly and continue medication management. Based on the physical exam and clinical findings, we will schedule 1 month follow up. Goal of treatment decrease left hip,right knee and right ankle pain. Scribe-SB Pain Management Assessment and followup Followup plan documented :: Yes
--- OUTSIDE RECORDS SUMMARY | 2025-02-27 06:15 | XMS_ITS ---
Author Organization [facility] Address [address] [place] [address] Care Team Providers Care Corporate Relations Manager Name Role Phone DoraDavid thomas Primary Care Provider [phone] Jah Jiménez Unavailable [phone] Dom Garsia Unavailable [phone] Allergies No Known Allergies REASON FOR VISIT OFFICE VISIT Medications Medication SIG (Take, Route, Frequency, Duration) Notes Start Date End Date Status predniSONE 20 MG Oral for 5 Days Not-Taking Narcan 4 MG/0.1ML as directed Nasally 09/14/2024 Active Diclofenac Sodium 75 MG TAKE 1 TABLET BY MOUTH EVERY 12 HOURS WITH FOOD Orally Twice a day for 30 days 04/30/2025 Active Meloxicam 15 MG Oral for 4 Days Not-Taking Etdqkoekk-Lzmztmgy-GD 30-2-10 MG/5ML Oral for 4 Days Not-Taking oxyCODONE-Acetaminophen 5-325 MG 1tablet Orally twice daily for 30 days 02/04/2025 03/29/2025 Active Azithromycin 250 MG Oral for 5 Days Active Albuterol Sulfate HFA 108 (90 Base) MCG/ACT Inhalation for 30 Days Active Benzonatate 100 MG Oral for 10 Days Active Social History Tobacco use other than smoking: Question Answer Notes Are you an other tobacco user? No Vital Signs Blood pressure systolic 144 mm Hg 02/28/20 25 Blood pressure diastolic 98 mm Hg 025 Heart Rate 76 /min 02/27/2025 Height 63 in 02/27/2025 Weight 185 lbs 02/27/2025 BMI 32.77 kg/m2 02/27/2025 Oximetry 94 % 02/27/2025 Encounters Encounter Location Date Provider Diagnosis [facility] [address] [place] [address] 02/27/2025 Jah Jiménez Right knee pain M25.561 ; Radiculopathy, lumbar region M54.16 and Left hip pain M25.552 Assessments Encounter Date Diagnosis (ICD Code) Assessment Notes Treatment Notes Treatment Clinical Notes Section Notes 02/27/2025 Right knee pain (ICD-10 - M25.561) PERCOCET, DNF 03/06/25 02/27/2025 Radiculopathy, lumbar region (ICD-10 - M54.16) 02/27/2025 Left hip pain (ICD-10 - M25.552) Plan Of Treatment Medication Medication Name Sig Start Date Stop Date Notes oxyCODONE-Acetaminophen 5-32 5 MG 1tablet Orally twice daily for 30 days 02/04/2025 03/29/2025 Treatment Notes Assessment Notes Right knee pain PERCOCET, DNF 5 Next Appt Details Follow Up: 4 Weeks, Reason: OFFICE VISIT,MEDICATION REFILL Provider Name:Jah boss, 04/24/2025 09:15:00 AM, [address] [place], [address], Progress Notes * Eliane ESPINOZAaDOB:1960 (64 yo F)Acc No.[id number]:02/27/2025 Progress Notes Patient: Jenni HAMILTON Provider: Tessa Jiménez MD :1960 A ge:64 Y S ex:Female Date:02/27/2025 Address:[address] [place], [place] [id number] Pcp:David Padilla Subjective: * Chief Complaints: * 1 . OFFICE VISIT. * HPI: I nterim History: Patient presents for a follow-up for chronic pain and pain management. Patient's CC: Left Hip Pain, which they score a 3+/10 NRS at rest that increases by end of day to a 10+/10 NRS. Pt describes this pain as constant aching, shocking, stabbing, throbbing tingling with increased daily fatigue. Pt reports that walking, standing, bending, housework, cooking, playing golf, and sitting upright increases this pain. Pt reports a lot of walking and standing, activity that has increased her pain. Pt reports she continues to play golf three times weekly due to interventional treatment and medication regimen of her chronic pain. Pt reports that laying down, resting, and prescribed pain medication help relieve her pain. Patient also complains of right knee pain that is constant and reports it will swell after standing for extended period of time. Pt reports no changes in health history and denies any changes in medications from outside providers. Denies adverse effects to prescribed medication. Reports taking medications as prescribed. Medications and interventional treatment are helping with function and ADLs such as playing golf almost daily. Percocet refill issued today. Last UDS was reviewed and was compliant for prescribed medication. Patient has not scheduled treatment for her pain. We will follow up accordingly. Based on the physical exam and clinical findings, we will schedule an office visit in one month and continue present pain management. SCRIBE~AK. Santos mcdonald Management: Assessment and followup [facility] plan documented : Y es. H ip/Thigh: EXAMINATION: MRI of the left [...] contrast using the 3 phil magnet with EchoPixel protocol. Bilateral coronal T1 weighted and STIR, [...] with small amount of joint fluid present. R ight knee: Pt completed a right knee surgery 04/2020 and has fallen a few times since surgery. Pt states she's had constant pain since surgery. Pt has completed physical therapy that gave her 40% of her pain and helped with strength. Pt has tried opiods therapy with current pain medication of Percocet that helps with relief of her pain as well as muscle relaxers, massage therapy, and heated recliner with massager that helps elevate her knee. * ROS: C ervical: Denies N rito [...] REPLACEMENT 04/2020. * Hospitalization/Major Diagno stic Procedure: Pratik medina Past Hospitalization. * Family History: M other: [...] ousehold M arital status: w pedro, Enmanuel ruano of education: f inished high school. * Medications: T aking Benzonatate 100 MG Capsule Oral , Taking Azithromycin 250 MG Tablet Oral , Taking Albuterol Sulfate HFA 108 (90 Base) MCG/ACT Aerosol Solution Inhalation , Taking Narcan 4 MG/0.1ML Liquid as directed Nasally , Taking Diclofenac Sodium 75 MG Tablet Delayed Release TAKE 1 TABLET BY MOUTH EVERY 12 HOURS WITH FOOD Orally Twice a day , stop date 04/30/2025, Taking oxyCODONE-Acetaminophen 5-325 MG Tablet 1tablet Orally twice daily , stop date 03/02/2025, Not-Taking predniSONE 20 MG Tablet Oral , Not-Taking Meloxicam 15 MG Tablet Oral , Not-Taking Xxicdsbcl-Jqdybfnz-BI 30-2-10 MG/5ML Syrup Oral , Medication List reviewed and reconciled with the patient * Allergies: N .K.D.A. Objective: * Vitals: H R:76/min, BP:144/98mm Hg, Ht: 63 in, Wt:185lbs, BMI:32.77Index, Oxygen sat %:94, Pain scale:31-10, Ht-cm: 160.02 cm, Wt-k.92 kg. * Examination: C QM Exceptions: G ENERAL APPEARANCE: Well appearing, well nourished in no distress. Oriented x 3, normal mood and affect. ABDOMEN: No tenderness, organomegaly, masses, or hernia. EXTREMITIES: No edema, peripheral pulses intact. MUSCULOSKELETAL:LEFT HIP TENDERNESS // POSITIVE LOG ROLL. No abnormalities of digits and nails. No misalignment, asymmetry, crepitation, defects, tenderness, masses, effusions, decreased range of motion, instability, atrophy or abnormal strength or tone in: Right upper extremity,Left upper extremity,Right lower extremity,Left lower extremity. TTP right knee LUMBAR SPINE: No visible scoliotic deformity. AXIAL TENDERNESS WITH FLEXION AND WEIGHT BEARING. Moderate midline percussion or palpation tenderness on LEFT SIDE. Moderate paraspinous tenderness. No detectable paraspinous muscle spasm. LEFT SIJ- TTP. MOTOR: Muscle strength is normal for age and body habitus in the upper limbs, proximally and distally. Muscle tone is normal. No atrophy or fasciculations noted in upper or lowerextremity musculature. SENSORY: Sensory exam is intact to pinprick and light touch in the upper or lower limbs with no significant asymmetry or distal decrement noted. DTRs: Deep tendon reflexes are 1-2+ and symmetrical in the upper or lower limbs. PSYCHIATRIC: Oriented X3, intact recent and remote memory. Assessment: * Assessment: 1. R ight knee pain - M25.561 2 . R adiculopathy, lumbar region - M54.16? 3. L eft hip pain - M25.552 Plan: * Treatment: * Immunizations: Immunization record has been reviewed and updated. * Preventive Medicine: Screenings: T OBACCO USE SCREENING: T he patient smoked: zelda brambila, S moking tobacco was last used: t [place] james pack years of use is: P t reports smoking 1/2 to one pack per day. . . ... .... CONTROLLED SUBSTANCES VERBAL EDUCATION ... PER RULES OF [place]- may require weaning of medication, if rules [...] or need more you can contact the [facility] addiction hotline at [phone] and they should be able to provide you with free Narcan. * Follow Up: 4 Weeks (Reason: OFFICE VISIT,MEDICATION REFILL) * * Electronic signature of Abhilash Jiménez MD on 04/03/2025 at 12:04 PM EDT Sign off status: Pending * Provider: Tessa Jiménez MD Date: 0 02/27/2025 Generated for Yuval kendrick/Da/Miguelsmitting on: 0 04/03/2025 12:04 PM EDT History [...] contrast using the 3 phil magnet with EchoPixel protocol. Bilateral coronal T1 weighted and STIR, [...] present. Interim History Patient presents for a follow-up for chronic pain and pain management. Patient's CC: Left Hip Pain, which they score a 3+/10 NRS at rest that increases by end of day to a 10+/10 NRS. Pt describes this pain as constant aching, shocking, stabbing, throbbing tingling with increased daily fatigue. Pt reports that walking, standing, bending, housework, cooking, playing golf, and sitting upright increases this pain. Pt reports a lot of walking and standing, activity that has increased her pain. Pt reports she continues to play golf three times weekly due to interventional treatment and medication regimen of her chronic pain. Pt reports that laying down, resting, and prescribed pain medication help relieve her pain. Patient also complains of right knee pain that is constant and reports it will swell after standing for extended period of time. Pt reports no changes in health history and denies any changes in medications from outside providers. Denies adverse effects to prescribed medication. Reports taking medications as prescribed. Medications and interventional treatment are helping with function and ADLs such as playing golf almost daily. Percocet refill issued today. Last UDS was reviewed and was compliant for prescribed medication. Patient has not scheduled treatment for her pain. We will follow up accordingly. Based on the physical exam and clinical findings, we will schedule an office visit in one month and continue present pain management. SCRIBE~AK Pain Management Assessment and followup Followup plan documented :: Yes Examination Category Sub-Category Detail Notes Category Not es CQM Exceptions GENERAL APPEARANCE: Well appearing, well nourished in no distress. Oriented x 3, normal mood and affect. ABDOMEN: No tenderness, organomegaly, masses, or hernia. EXTREMITIES: No edema, peripheral pulses intact. MUSCULOSKELETAL:LEFT HIP TENDERNESS // POSITIVE LOG ROLL. No abnormalities of digits and nails. No misalignment, asymmetry, crepitation, defects, tenderness, masses, effusions, decreased range of motion, instability, atrophy or abnormal strength or tone in: Right upper extremity,Left upper extremity,Right lower extremity,Left lower extremity. TTP right knee LUMBAR SPINE: No visible scoliotic deformity. AXIAL TENDERNESS WITH FLEXION AND WEIGHT BEARING. Moderate midline percussion or palpation tenderness on LEFT SIDE. Moderate paraspinous tenderness. No detectable paraspinous muscle spasm. LEFT SIJ- TTP. MOTOR: Muscle strength is normal for age and body habitus in the upper limbs, proximally and distally. Muscle tone is normal. No atrophy or fasciculations noted in upper or lowerextremity musculature. SENSORY: Sensory exam is intact to pinprick and light touch in the upper or lower limbs with no significant asymmetry or distal decrement noted. DTRs: Deep tendon reflexes are 1-2+ and symmetrical in the upper or lower limbs. PSYCHIATRIC: Oriented X3, intact recent and remote memory
--- NOTE | 2025-04-03 | XR_ITS ---
FINAL REPORT CLINICAL HISTORY: RADICULOPATHY COMPARISON: None FINDINGS: The vertebrae are normal height. There is mild levoscoliosis of the lumbar spine of less than 10 degrees. The disc spaces are preserved. Prevertebral soft tissues are unremarkable. There is no instability with flexion or extension. IMPRESSION: No acute process. Reviewed, Interpreted and Dictated by Nain Avila MD Transcribed by Ingrid Gomez Authenticated and [facility]
--- OUTSIDE RECORDS SUMMARY | 2025-04-03 12:05 | XMS_ITS | Patient Health Record ---
Author Organization [facility] Address [address] [place] [address] Care Team Providers Care Corporate Webmaster Name Role Phone Randy David Primary Care Provider Jah Jiménez Unavailable [phone] Dom Garsia Unavailable [phone] Marshall Love Unavailable Unavailable Allergies No Known Allergies Results Component Value Reference Range Notes [facility] (Not yet reviewed by provider) Interpretation:Normal Performing Lab: Notes/Report: Normal [facility] (Not yet re viewed by provider) Interpretation:Normal Performing Lab: Notes/Report: Normal [facility] (Not yet re viewed by provider) Interpretation:Normal Performing Lab: Notes/Report: Normal [facility] (Not yet reviewed by provider) Interpretation:Negative Performing Lab: Notes/Report: Negative Reason For Referral No Information Medications Medication SIG (Take, Route, Frequency, Duration) Notes Start Date End Date Status Azithromycin 250 MG Oral for 5 Days Active Albuterol Sulfate HFA 108 (90 Base) MCG/ACT Inhalation for 30 Days Active Narcan 4 MG/0.1ML as directed Nasally 09/14/2024 Active oxyCODONE-Acetaminophen 5-325 MG 1tablet Orally twice daily for 30 days 03/06/2025 05/03/2025 Active Diclofenac Sodium 75 MG TAKE 1 TABLET BY MOUTH EVERY 12 HOURS WITH FOOD Orally Twice a day for 30 days 04/30/2025 Active predniSONE 20 MG Oral for 5 Days Not-Taking Meloxicam 15 MG Oral for 4 Days Not-Taking Ucptwypwb-Yhppdeao-ZG 30-2-10 MG/5ML Oral for 4 Days Not-Taking Benzonatate 100 MG Oral for 10 Days Active Immunizations Vaccine Route Administration Date Status Comme nts Influenza (split), 3 yrs and above Unknown 09/09/2016 Others Influenza (split), 3 yrs and above Unknown 09/23/2017 Refused Influenza (split), 3 yrs and above Unknown 12/28/2017 Others Influenza (split), 3 yrs and above Unknown 09/22/2018 Others Influenza (split), 3 yrs and above Unknown 11/15/2018 Administered Influenza (split), 3 yrs and above Unknown 01/16/2021 Administered Influenza (split), 3 yrs and above Unknown 07/10/2021 Refused Influenza (split), 3 yrs and above Unknown 08/07/2021 Administered Influenza (split), 3 yrs and above Unknown 09/09/2021 Refused Influenza (split), 3 yrs and above Unknown 07/03/2023 Administered Influenza (split), 3 yrs and above Unknown 08/13/2023 Administered Pneumococcal conjugate PCV 13 Unknown 01/16/2021 Administered Pneumococcal conjugate PCV 13 Unknown 07/10/2021 Refused Pneumococcal conjugate PCV 13 Unknown 08/07/2021 Administered Pneumococcal conjugate PCV 13 Unknown 09/07/2023 Refused Influenza, unspecified formulation (CPT 14812 Inactive) Unknown 08/27/2015 Administered GIVEN BY PCP PER PT Influenza, unspecified formulation (CPT 10761 Inactive) Unknown 08/27/2015 Refused Influenza, unspecified formulation (CPT 54832 Inactive) Unknown 02/11/2017 Administered Pneumococcal unspecified Unknown 08/15/2015 Pending Pneumococcal unspecified Unknown 09/09/2016 Pending Pneumococcal unspecified Unknown 02/11/2017 Pending Pneumococcal unspecified Unknown 09/23/2017 Others Pneumococcal unspecified Unknown 12/28/2017 Refused Pneumococcal unspecified Unknown 09/22/2018 Pending Pneumococcal unspecified Unknown 07/02/2023 Administere d Social History Tobacco use other than smoking: Question Answer Notes Are you an other tobacco user? No Problems Problem Type SNOMED Code ICD Code Onset Dates Problem Status W/U Status Risk Notes Problem Tobacco user (106146663) Nicotine dependence, unspecified, uncomplicated (F17.200) Active confirmed Problem 51769162 Other chronic pain (G89.29) Active confirmed Problem 296385003 Chronic pain syndrome (G89.4) Active confirmed Problem Lumbosacral spondylosis without myelopathy (99402938) Other spondylosis with radiculopathy, lumbar region (M47.26) Active confirmed Problem Lumbosacral spondylosis without myelopathy (00501059) Other spondylosis, lumbar region (M47.896) Active confirmed Problem Displacement of lumbar intervertebral disc without myelopathy (49319425) Other intervertebral disc displacement, lumbar region (M51.26) Active confirmed Problem Lumbar radiculopathy (052324124) Radiculopathy, lumbar region (M54.16) Active confirmed Problem 50454486 Left hip pain (M25.552) Active confirmed Problem Arthralgia of the lower leg (449441292) Right knee pain (M25.561) Active confirmed Problem Sacrococcygeal disorder (917906358) Sacral pain (M53.3) Active confirmed Problem Arthralgia of the lower leg (022656538) Left knee pain (M25.562) Active confirmed Problem Osteoarthritis of knee (643189814) Osteoarthritis of right knee (M17.9) Active confirmed Problem Arthralgia of the ankle and/or foot (389041655) Right ankle pain (M25.571) Active confirmed Problem 955093501 Osteoarthritis o f multiple joints, unspecified osteoarthritis type (M15.9) Active confirmed Problem 786785964 Pain of right lower extremity (M79.604) Active confirmed Problem Chronically on opiate therapy (Z79.891) Active confirmed Vital Signs Heart Rate 78 /min 04/03/2025 Oximetry 94 % 04/03/2025 Blood pressure diastolic 91 mm Hg 04/03/2025 Height 63 in 04/03/2025 Blood pressure systolic 163 mm Hg 04/03/2025 Weight 185 lbs 04/03/2025 BMI 32.77 kg/m2 04/03/2025 Encounters Encounter Location Date Provider Diagnosis [facility] [address] [place] [address] 04/20/2024 Jah Jiménez Right knee pain M25.561 [facility] [facility] [address] [place] [address] 05/18/2024 Jah Jiménez Left hip pain M25.552 and Radiculopathy, lumbar region M54.16 [facility] [address] [place] [address] 06/20/2024 Jah Klickovich Left hip pain M25.552 and Right knee pain M25.561 [place] [facility] [address] [place] [address] 07/20/2024 Jah Klickovich Left hip pain M25.552 and Right knee pain M25.561 [place] [facility] [address] [place] [address] 10/19/2024 Jah Klickovich Left hip pain M25.552 and Right knee pain M25.561 [place] [facility] [address] [place] [address] 12/05/2024 Jah Klickovich Left hip pain M25.552 [place] [facility] [address] [place] [address] 01/02/2025 Jah Klickovich Left hip pain M25.552 [place] [facility] [address] [place] [address] 01/30/2025 Jah Klickovich Right knee pain M25.561 and Left hip pain M25.552 [place] [facility] [address] [place] [address] 02/27/2025 Jah Klickovich Right knee pain M25.561 ; Radiculopathy, lumbar region M54.16 and Left hip pain M25.552 [place] [facility] [address] [place] [address] 04/03/2025 Jah Truickrjh Radiculopathy, lumbar region M54.16 ; Right knee pain M25.561 and Left hip pain M25.552 [place] [facility] [address] [place] [address] 08/17/2024 Marshall Anderson Left hip pain M25.552 and Sacral pain M53.3 [place] [facility] [address] [place] [address] 09/14/2024 Marshall Love Sacral pain M53.3 ; Chronic pain syndrome G89.4 ; Left hip pain M25.552 and Right knee pain M25.561 [facility] [place] [address] 04/03/2025 Jah Jiménez Radiculopathy, lumbar region M54.16 [place] [facility] [address] [place] [address] 04/20/2024 Jah Klickovich Right knee pain M25.561 [place] [facility] [address] [place] [address] 05/18/2024 Jah Klickovich Left hip pain M25.552 [place] [facility] [address] [place] [address] 06/20/2024 Jah Klickovich Left hip pain M25.552 [place] [facility] [address] [place] [address] 07/17/2024 Jah Klickovich Right knee pain M25.561 [place] [facility] [address] [place] [address] 07/20/2024 Jah Klickovich Left hip pain M25.552 [place] [facility] [address] [place] [address] 08/17/2024 Jah Klickovich Left hip pain M25.552 [facility] [address] [place] [address] 09/14/2024 Jah Klickovich Left hip pain M25.552 [place] [facility] [address] [place] [address] 10/19/2024 Jah Klickovich Left hip pain M25.552 [facility] [address] [place] [address] 10/19/2024 Jah Klickovich [facility] [address] [place] [address] 12/05/2024 Jah Klickovich Left hip pain M25.552 [facility] [address] [place] [address] 01/02/2025 Jah Klickovich Left hip pain M25.552 [facility] [address] [place] [address] 01/31/2025 Jah Klickovich Right knee pain M25.561 [facility] [address] [place] [address] 02/27/2025 Jah Jiménez Right knee pain M25.561 Assessments Encounter Date Diagnosis (ICD Code) Assessment Notes Treatment Notes Treatment Clinical Notes Section Notes 04/20/2024 Right knee pain (ICD-10 - M25.561) PERCOCET, DNF 04/22/24 04/20/2024 Right knee pain (ICD-10 - M25.561) 05/18/2024 Radiculopathy , lumbar region (ICD-10 - M54.16) 05/18/2024 Left hip pain (ICD-10 - M25.552) PERCOCET, DNF 05/22/24 05/18/2024 Left hip pain (ICD-10 - M25.552) 06/20/2024 Left hip pain (ICD-10 - M25.552) 06/20/2024 Left hip pain (ICD-10 - M25.552) PERCOCET DNF 06/21/24 06/20/2024 Right knee pain (ICD-10 - M25.561) 07/17/2024 Right knee pain (ICD-10 - M25.561) 07/20/2024 Left hip pain (ICD-10 - M25.552) PERCOCET, DNF 07/21/24 07/20/2024 Right knee pain (ICD-10 - M25.561) 07/20/2024 Left hip pain (ICD-10 - M25.552) 08/17/2024 Left hip pain (ICD-10 - M25.552) PERCOCET DNF 08/20/24 08/17/2024 Sacral pain (ICD-10 - M53.3) 08/17/2024 Left hip pain (ICD-10 - M25.552) 09/14/2024 Chronic pain syndrome (ICD-10 - G89.4) 09/14/2024 Sacral pain (ICD-10 - M53.3) 09/14/2024 Left hip pain (ICD-10 - M25.552) 10/19/2024 Left hip pain (ICD-10 - M25.552) PERCOCET, MAY FILL TODAY 10/19/2024 Left hip pain (ICD-10 - M25.552) 12/05/2024 Left hip pain (ICD-10 - M25.552) 12/05/2024 Left hip pain (ICD-10 - M25.552) 01/02/2025 Left hip pain (ICD-10 - M25.552) 01/02/2025 Left hip pain (ICD-10 - M25.552) 01/30/2025 Right knee pain (ICD-10 - M25.561) 01/31/2025 Right knee pain (ICD-10 - M25.561) 02/27/2025 Right knee pain (ICD-10 - M25.561) PERCOCET, DNF 03/06/25 02/27/2025 Right knee pain (ICD-10 - M25.561) 04/03/2025 Radiculopathy , lumbar region (ICD-10 - M54.16) 04/03/2025 Radiculopathy , lumbar region (ICD-10 - M54.16) 04/03/2025 Right knee pain (ICD-10 - M25.561) 02/27/2025 Radiculopathy , lumbar region (ICD-10 - M54.16) 01/30/2025 Left hip pain (ICD-10 - M25.552) 10/19/2024 Right knee pain (ICD-10 - M25.561) 09/14/2024 Left hip pain (ICD-10 - M25.552) 09/14/2024 Right knee pain (ICD-10 - M25.561) 02/27/2025 Left hip pain (ICD-10 - M25.552) 04/03/2025 Left hip pain (ICD-10 - M25.552) 05/18/2024 Other Patient requires opioid medication to effectively manage their allowed condition. The opioid medication helps improve the patient's pain control and ability to function. Patient requires monitoring for appropriate opioid medication use with routine urine drug screens. Screening will be performed based on risk level unless a clinical need arises for more frequent testing to confirm treatment compliance. Recent UDS and MIGUEL reviewed. The patient was counseled on the appropriate use of the opioid medication, its potential dangers and the responsibilities that go along with being prescribed opioid medications including safe storage, use and disposal of the medication. Patient was also counseled on the adverse effects of long-term opioid use including hyperalgesia, tolerance, decreased immune function, and changes to the body's natural hormones. The patient also understands the potential risks for respiratory depression especially if the medication is combined with other central nervous system depressants such as benzodiazepines or alcohol. 07/20/2024 Other Patient denies new symptoms. She continues to get functional relief from current medication regiment. MIGUEL and recent UDS reviewed. Patient requires opioid medication to manage chronic pain condition. These medications help improve patients pain control and ability to function while completing ADLs. Patient has been counselled on appropriate storage, use and potential misuse of these medications and verbalized understanding and agrees to comply with guidelines set forth in narcotic agreement signed by patient. Patient requires opioid medication to effectively manage their allowed condition. The opioid medication helps improve the patient's pain control and ability to function. Patient requires monitoring for appropriate opioid medication use with routine urine drug screens. Screening will be performed based on risk level unless a clinical need arises for more frequent testing to confirm treatment compliance. UDS COLLECTED randomly today. Patient is considered moderate risk category considering opiod usage for chronic pain. Drug testing is important as it reduces the risk of unrecognized drug usage that could affect prescribing regimen. Patients fail to disclose illicit use, other prescribers prescriptions, non-prescribed drugs, or overuse of prescribed medications.Monitori ng chronic opioid therapy is critical because risks and benefits do not remain static.UDS will check for consistency of medication usage. 08/17/2024 Other The patient is stable with the medications. Denies any side effects from the medications or complications from the medications. The patient claims that they are taking medications as prescribed which is helping them stay functional with their ADLs. Miguel or OARRS and UDS reviewed. The patient has an upcoming appointment. Chart reviewed today by practitioner prior to issuance of prescription refill. 09/14/2024 Other The patient is stable with the medications. Denies any side effects from the medications or complications from the medications. The patient claims that they are taking medications as prescribed which is helping them stay functional with their ADLs. Miguel or OARRS and UDS reviewed. The patient has an upcoming appointment. Chart reviewed today by practitioner prior to issuance of prescription refill. NARCAN One of the adverse effects that can occur with chronic opioid usage that we discussed is that it can cause respiratory depression. With the side effect of the opioid, patient could be at increased risk for respiratory depression. He understands the concern and side effects of the narcotics. He will be given Narcan to have at his home in the event of any changes in respiration. Narcan is prescribed due to use of opioid medication. Use and necessity discussed with patient. Seen in consultation today. Care plan and medications reviewed by Dr. Jiménez. Plan Of Treatment Pending Test Test Name Order Date MRI : Lumbar without contrast 07/14/2022 [facility] 06/03/2017 [facility] 07/14/2022 [facility] 01/12/2023 [facility] 04/20/2023 [facility] 07/13/2023 [facility] 10/21/2023 [facility] 01/18/2024 XR LUMBAR SPINE FLEXION AND EXTENSION ON LY 04/03/2025 MRI LUMBAR SPINE WO CONTRAST 04/03/2025 [facility] 04/20/2024 [facility] 07/20/2024 [facility] 10/19/2024 [facility] 01/30/2025 Next Appt Details Provider Name:Jah Ximena boss, 04/24/2025 09:15:00 AM, [address] [place], [address], Insurance Providers Payer Name Payer Address Payer Phone Subscriber Number Group Number Insured Name Patient Relationship to Insured Coverage Start Date Coverage End Date [employer] [address] [address] [place] [address] [id number] February, Self - patient is the insured 4 Medical (General) History Medical History History ICD Code Cancer/Tumor Hypercholesterolemia Surgical History Surgery Date(Month/Year) Tonsilectomy 1974 Hysterectomy 1992 Eye Surgery Hip Replacement Surgery 2006 RIGHT KNEE REPLACEMENT 04/2020
== END 2025-04-03 23:59 | disposition home or self-care (01) ==
LOC: RAD 12:02
PROVIDERS: PCP Physician Assistant; Visit Provider Anesthesiology Pain Medicine
DX: M41.86 Other forms of scoliosis, lumbar region (principal)
CPT/HCPCS: 72114

== ENCOUNTER 2025-07-03 09:33 | Outpatient (CLI) | payer MEDICARE, SELFPAY ==
--- OUTSIDE RECORDS SUMMARY | 2025-04-24 05:15 | XMS_ITS ---
Author Organization [facility] Address [address] [place] [address] Care Team Providers Care Inventory Taker Name Role Phone David Padilla Primary Care Provider Jah Jiménez Unavailable [phone] Dom Garsia Unavailable [phone] REASON FOR VISIT OFFICE VISIT Encounters Encounter Location Date Provider Diagnosis [facility] [address] [place] [address] 04/24/2025 Jah Jiménez Plan Of Treatment Next Appt Details Provider Name:Jah boss, 07/31/2025 08:30:00 AM, [address] [place], [address], Progress Notes * February,aDOB:1960 (64 yo F)Acc No.[id number]:04/24/2025 Progress Notes Patient: Jenni HAMILTON Provider: Tessa Jiménez MD :1960 A ge:64 Y S ex:Female Date:04/24/2025 Address: [address] [facility] Pcp:David Padilla Subjective: * Chief Complaints: * 1 . OFFICE VISIT. * Medical History: Objective: * Vitals: Assessment: Plan: * Treatment: * * Electronic signature of Abhilash Jiménez MD on 07/03/2025 at 09:39 AM EDT Sign off status: Pending * Provider: Tessa Jiménez MD Date: 0 04/24/2025 Generated for Yuval kendrick/Da/Kevon on: 0 07/03/2025 09:39 AM EDT
--- OUTSIDE RECORDS SUMMARY | 2025-05-29 04:45 | XMS_ITS ---
Author Organization [facility] Address [address] [place] [address] Care Team Providers Care Cupola Melting Supervisor Name Role Phone DoraDavid thomas Primary Care Provider Jah Jiménez Unavailable [phone] Dom Garsia Unavailable [phone] Allergies No Known Allergies REASON FOR VISIT RIGHT L3-4 AND L4-5 TRANSFORAMINAL STEROID INJECTION Medications Medication SIG (Take, Route, Frequency, Duration) Notes Start Date End Date Status Azithromycin 250 MG Oral; Duration: 5 Days Active Benzonatate 100 MG Oral; Duration: 10 Days Active Albuterol Sulfate HFA 108 (90 Base) MCG/ACT Inhalation; Duration: 30 Days Active oxyCODONE-Acetaminophen 5-325 MG 1tablet Orally twice daily; Duration: 30 days 05/05/2025 06/28/2025 Active Diclofenac Sodium 75 MG TAKE 1 TABLET BY MOUTH EVERY 12 HOURS WITH FOOD Orally Twice a day Active Narcan 4 MG/0.1ML as directed Nasally 09/14/2024 Active predniSONE 20 MG Oral; Duration: 5 Days Not-Taking Befkzhzgt-Tcywvwbl-JU 30-2-10 MG/5ML Oral; Duration: 4 Days Not -Taking Meloxicam 15 MG Oral; Duration: 4 Days Not-Taking Social History Tobacco use other than smoking: Question Answer Notes Are you an other tobacco user? No Vital Signs Blood pressure systolic 138 mm Hg 05/29/20 25 Blood pressure diastolic 84 mm Hg 025 Heart Rate 74 /min 05/29/2025 Height 63 in 05/29/2025 Weight 185 lbs 05/29/2025 BMI 32.77 kg/m2 05/29/2025 Oximetry 97 % 05/29/2025 Encounters Encounter Location Date Provider Diagnosis [facility] [address] [place] [address] 05/29/2025 Jah Ottjimnydia Radiculopathy, lumbar region M54.16 Assessments Encounter Date Diagnosis (ICD Code) Assessment Notes Treatment Notes Treatment Clinical Notes Section Notes 05/29/2025 Radiculopathy, lumbar region (ICD-10 - M54.16) Plan Of Treatment Medication Medication Name Sig Start Date Stop Date Notes oxyCODONE-Acetaminophen 5-32 5 MG 1tablet Orally twice daily; Duration: 30 days 05/05/2025 06/28/2025 Diclofenac Sodium 75 MG TAKE 1 TABLET BY MOUTH EVERY 12 HOURS WITH FOOD Orally Twice a day Next Appt Details Provider Name:Jah boss, 07/31/2025 08:30:00 AM, [address] [place], [address], Progress Notes * February,aDOB:1960 (64 yo F)Acc No.[id number]:05/29/2025 Progress Note Patient: Jenni HAMILOTN Provider: Tessa Jiménez MD :1960 A ge:64 Y S ex:Female Date:05/29/2025 Address:[address] [place], [place] [id number] Pcp:David Padilla Subjective: * Chief Complaints: * 1 . RIGHT L3-4 AND L4-5 TRANSFORAMINAL STEROID INJECTION. * HPI: I nterim History: Patient presents for a Right L3-4 and L4-5 Transforaminal Epidural. Patient is scoring their pain 4/10 NRS and 10/10 NRS at its worst. Patient has signed the consent form and any questions were answered. Patient denies any changes in medications or health history. Allergies reviewed; patient denies any new allergies or adverse drug effects. Patient denies current anticoagulation and/or antibiotic therapy. Patient is not diabetic. SCRIBE: ES. Santos mcdonald Management: Assessment and followup F ollowup plan documented : Y es. * ROS: C ervical: Denies N rito [...] 04/2020. * Hospitalization/Major Diagno stic Procedure: D enkerrie Past Hospitalization. * Family History: M other: alive. F ather: , diagnosed with Hypertension, Cancer, Diabetes. M aternal Grandmother: . M aternal Grandfather: [...] inished high school. * Medications: T aking oxyCODONE-Acetaminophen 5-325 MG Tablet 1tablet Orally twice daily , stop date 05/31/2025, Taking Benzonatate 100 MG Capsule Oral , Taking Azithromycin 250 MG Tablet Oral , Taking Albuterol Sulfate HFA 108 (90 Base) MCG/ACT Aerosol Solution Inhalation , Taking Narcan 4 MG/0.1ML Liquid as directed Nasally , Taking Diclofenac Sodium 75 MG Tablet Delayed Release TAKE 1 TABLET BY MOUTH EVERY 12 HOURS WITH FOOD Orally Twice a day , stop date 08/01/2025, Not-Taking predniSONE 20 MG Tablet Oral , Not-Taking Meloxicam 15 MG Tablet Oral , Not-Taking Isjdtlxkm-Nmqvuxru-PZ 30-2-10 MG/5ML Syrup Oral , Medication List reviewed and reconciled with the patient * Allergies: N .K.D.A. Objective: * Vitals: H R:74/min, BP:138/84mm Hg, Ht: 63 in, Wt:185lbs, BMI:32.77Index, Oxygen sat %:97, Pain scale:41-10, Ht-cm: 160.02 cm, Wt-k.92 kg. Assessment: * Assessment: 1. R adiculopathy, lumbar region - M54.16 Plan: * Treatment: * Procedures: L UMBAR TRANSFORAMINAL EPIDURAL: RIGHT L3-4 AND L4-5 Medical Necessity: Has not responded to greater than 3 months conservative therapy including but not limited to activity modification, medications, therapy Informed Consent: Risks, benefits, potential complications, and alternatives were discussed and the patient has elected to pursue the scheduled procedure service. I personally confirmed the procedure, side, and site to be injected with the patient in the procedure area. Conscious Sedation/ Monitoring: The patient did not receive IV or inhalational anesthesia for the procedure. Verbal contact was maintained throughout the procedure. Fluoroscopic Guidance: Yes. Antibiotic: No antibiotic was used. Procedure: The patient was placed on the fluoroscopy table in the prone position using a pillow for positioning. The skin was prepped and draped in a normal sterile manner. The needle entry point was identified with the fluoroscope and then anesthetized with 1% Lidocaine SQ. Under fluoroscopic guidance, a 22 gauge 5 inch Quincke needle was advanced into the lumbar epidural space and 2 cc of Omnipaque injected to documented position. No intravascular uptake of contrast observed. Following this, 2.0 cc Betamethasone 6mg/mL and 3.0 cc Marcaine 0.25% were injected. No immediate complications were encountered. . And then this was repeated at the next foramen. The procedure was well tolerated. After an adequate period of observation, the patient left the office in satisfactory condition. * * Electronic signature of Abhilash Jiménez MD on 07/03/2025 at 09:39 AM EDT Sign off status: Pending * Provider: Tessa Jiménez MD Date: 0 05/29/2025 Generated for Yuval kendrick/Da/Cataitting on: 0 07/03/2025 09:39 AM EDT History and Physical Notes * HPI (History of Present Illness) Category Sub-Category Detail Notes Category Not es Interim History Patient presents for a Right L3-4 and L4-5 Transforaminal Epidural. Patient is scoring their pain 4/10 NRS and 10/10 NRS at its worst. Patient has signed the consent form and any questions were answered. Patient denies any changes in medications or health history. Allergies reviewed; patient denies any new allergies or adverse drug effects. Patient denies current anticoagulation and/or antibiotic therapy. Patient is not diabetic. SCRIBE: ES Pain Management Assessment and followup Followup plan documented :: Yes
--- OUTSIDE RECORDS SUMMARY | 2025-06-26 04:30 | XMS_ITS ---
Author Organization [facility] Address [address] [place] [address] Care Team Providers Care Motor Vehicle Emissions Inspector Name Role Phone DoraDavid thomas Primary Care Provider Jah Jiménez Unavailable [phone] Dom Garsia Unavailable [phone] Allergies No Known Allergies REASON FOR VISIT OFFICE VISIT Medications Medication SIG (Take, Route, Frequency, Duration) Notes Start Date End Date Status Meloxicam 15 MG Oral; Duration: 4 Days Not-Taking Aqbgzrcgj-Phlegtwa-EX 30-2-10 MG/5ML Oral; Duration: 4 Days Not -Taking Diclofenac Sodium 75 MG TAKE 1 TABLET BY MOUTH EVERY 12 HOURS WITH FOOD Orally Twice a day Active predniSONE 20 MG Oral; Duration: 5 Days Not-Taking Narcan 4 MG/0.1ML as directed Nasally 09/14/2024 Active Benzonatate 100 MG Oral; Duration: 10 Days Active oxyCODONE-Acetaminophen 5-325 MG 1tablet Orally twice daily; Duration: 30 days 06/04/2025 07/26/2025 Active Azithromycin 250 MG Oral; Duration: 5 Days Active Albuterol Sulfate HFA 108 (90 Base) MCG/ACT Inhalation; Duration: 30 Days Active Social History Tobacco use other than smoking: Question Answer Notes Are you an other tobacco user? No Vital Signs Blood pressure systolic 156 mm Hg 06/26/20 25 Blood pressure diastolic 93 mm Hg 025 Heart Rate 71 /min 06/26/2025 Height 63 in 06/26/2025 Weight 185 lbs 06/26/2025 BMI 32.77 kg/m2 06/26/2025 Oximetry 95 % 06/26/2025 Encounters Encounter Location Date Provider Diagnosis [facility] [address] [place] [address] 06/26/2025 Jah Jiménez Radiculopathy, lumbar region M54.16 and Hip pain, right M25.551 Assessments Encounter Date Diagnosis (ICD Code) Assessment Notes Treatment Notes Treatment Clinical Notes Section Notes 06/26/2025 Radiculopathy, lumbar region (ICD-10 - M54.16) PERCOCET, DNF 07/04/25 06/26/2025 Hip pain, right (ICD-10 - M25.551) Plan Of Treatment Medication Medication Name Sig Start Date Stop Date Notes oxyCODONE-Acetaminophen 5-32 5 MG 1tablet Orally twice daily; Duration: 30 days 06/04/2025 07/26/2025 Treatment Notes Assessment Notes Radiculopathy, lumbar region PERCOCET, D NF 07/04/25 Pending Test Test Name Order Date XR HIP RIGHT AP AND LATERAL 06/26/2025 Next Appt Details Follow Up: , Reason: OFFICE VISIT,MEDICATION REFILL Provider Name:Jah boss, 07/31/2025 08:30:00 AM, [address] [place], [address], Progress Notes * February,aDOB:1960 (64 yo F)Acc No.[id number]:06/26/2025 Progress Notes Patient: Jenni HAMILTON Provider: Tessa Jiménez MD :1960 A ge:64 Y S ex:Female Date:06/26/2025 Address:[address] [place], [place] [phone] Pcp:David Padilla Subjective: * Chief Complaints: * 1 . OFFICE VISIT. * HPI: I nterim History: Patient presents for a follow-up for chronic pain and pain management. On patient's last visit, patient completed a Right L3-4 and L4-5 Transforaminal Epidural injection on 05/29/2025. According to patient discussion and pain dairy, patient is reporting an increase of pain for several days before pain slowly decreased to 3/10 NRS at one week. Patient's CC: Right Low Back/Right Leg Pain, which they score a 5+/10 NRS at rest that increases by end of day or at night and can increase to 10+/10 NRS. Pt describes this pain as aching, shocking, shooting, hot and will increase to shocking and stabbing pains, depending on what she is doing. Patient reports she is still experiencing right leg pain and that she is hobbling due to weak leg and numbness. Pt reports she has not fallen. Pt reports that walking, standing, bending, housework, cooking, golfing, and sitting upright increases this pain. Pt reports that laying down, resting, and pain medications help relieve her pain. Patient also complains of right hip pain that she is rating a 6/10 NRS at rest and increases with certain activity. Patient states she recceived 90% relief from the epidural for about 2 weeks. Pain is not back to baseline . Patient states the only way I can get relief is with the percocet. She denies any side effects, no constipation, UR, confusion of somnolence. No increased GERD. She states she is not doing HEP, though she has been counseled multiple times on this. Pt describes this pain as constant aching. Patient reports her pain increased about three weeks ago without any fall or injury to cause the pain. Pt states walking, twisting and elevating her feet, sleeping with a pillow between her legs and pain medication is helping relieve her pain. We will order right hip X-ray today to complete and review at next office visit. Pt reports no changes in health history and denies any changes in medications from outside providers. Denies adverse effects to prescribed medication. Reports taking medications as prescribed. Medications and interventional treatment are helping with function and ADLs such as golfing. Percocet refill issued today. Miguel printed and reviewed for appropriate refill date. Patient is reporting her prescribed pain medication helps reduce her chronic pain. Last UDS was reviewed and was compliant for prescribed medication. Patient has not scheduled treatment for her pain. We will follow up accordingly. Based on the physical exam and clinical findings, we will schedule a follow-up visit to review right hip X-ray and continue present pain management. SCRIBE~AK. L umbar Spine/Lower Back: LUMBAR MRI DATED 04/12/2025 EXAMINATION:MRI of the lumbar spine without contrast. SEDATION:None. HISTORY:Per order: Radiculopathy, lumbar region. No known injury. Low back pain. Pain, numbness, and weakness in right leg. Symptoms x10 years. COMPARISON:Comparison is made with the prior MRI lumbar spine 08/14/2022. TECHNIQUE:MRI of the lumbar spine without contrast using the 1.5 phil magnet. Sagittal T1 weighted, T2 weighted, and STIR and axial T1 and T2 weighted sequences were performed. FINDINGS: There are 5 lumbar type vertebral bodies. Cord and Epidural Space: Spinal cord terminates at L1 and has normal signal. Nerve roots of the cauda equina are normal in morphology. Vertebral Column: Normal lumbar lordosis. Vertebral body and facet alignment is anatomic. Vertebral body heights are maintained. No concerning marrow signal. Multilevel disc desiccation. T12-L1: Maintained disc height without herniation or bulge. No canal or foraminal stenosis.L1-L2: Maintained disc height without herniation or bulge. No canal or foraminal stenosis.L2-L3: Maintained disc height without herniation or bulge. No canal or foraminal stenosis.L3-L4: Maintained disc height with symmetric disc bulge. Advanced facet arthrosis with facet hypertrophy. Disc and facet hypertrophic change result in mild bilateral foraminal stenosis. No significant canal stenosis. No significant interval change.L4-L5: Maintained disc height with asymmetric left disc bulge. Advanced facet arthrosis and facet hypertrophy. Disc and facet hypertrophic change result in mild teqa-zugrlgw-dvuk-right bilateral foraminal stenosis. No significant canal stenosis. No interval change.L5-S1: Maintained disc height without herniation or bulge. No canal or foraminal stenosis. Mild-moderate facet arthrosis. Soft tissues: No significant paraspinal muscle atrophy or edema. There is enlargement of the infrarenal abdominal aorta to 2.5 cm. IMPRESSION: 1. The study is compared to a lumbar spine MRI performed in July 2022 and demonstrates no significant interval change since that time. Lumbar disc degeneration with associated osteoarthritic change contributes to scattered mild foraminal stenosis, but no significant spinal canal stenosis. 2. There is enlargement of the abdominal aorta to 2.5 cm. LUMBAR X-ray COMPLETED 04/03/25 FINDINGS: THE VERTEBRAE ARE NORMAL HEIGHT. THERE IS MILD LEVOSCOLIOSIS OF THE LUMBAR SPINE OF LESS THAN 10 DEGREES. THE DISC SPACES ARE PRESERVED. PREVERTEBRAL SOFT TISSUES ARE UNREMARKABLE. THERE IS NO INSTABILITY WITH FLEXION OR EXTENSION. IMPRESSION: NO ACUTE PROCESS Patient's onset of pain began on 10/25/2013. Ms. Hill complains of pain in the low back and buttock region, groin and hip. She complains of pain that is best described as mostly on the left side, radiating into the groin, radiating into the entire leg and foot and throbbing . Ms. Hill's problem began with a gradual onset of pain without any associated illness or injury. She has undergone surgery on the hip for this problem. She denies being involved in any litigation related to her injuries. SYMPTOMS AND ACTIVITIES OF DAILY LIVING: Ms. Hill relates that her pain is relieved by lying down, treatment on the area of injections, RFA's, epidurals, and taking medication. Ms. Hill says that the pain is worsened by sitting, bending forward at the waist, walking, changes in the weather, standing and most any activity. Pt reports she would not be able to play golf without interventional treatment and pain medication regimen. H ip/Thigh: RIGHT HIP XRAY ORDERED 06/26/25 EXAMINATION: MRI of the left hip without [...] contrast using the 3 phil magnet with TransUnion protocol. Bilateral coronal T1 weighted and STIR, [...] 1tablet Orally twice daily , stop date 06/28/2025, Taking Diclofenac Sodium 75 MG Tablet Delayed Release TAKE 1 TABLET BY MOUTH EVERY 12 HOURS WITH FOOD Orally Twice a day , Not-Taking predniSONE 20 MG Tablet Oral , Not-Taking Meloxicam 15 MG Tablet Oral , Not-Taking Hchvfamfi-Mpeggzzc-FR 30-2-10 MG/5ML Syrup Oral , Medication List reviewed and reconciled with the patient * Allergies: N .K.D.A. Objective: * Vitals: H R:71/min, BP:156/93mm Hg, Ht: 63 in, Wt:185lbs, BMI:32.77Index, Oxygen sat %:95, Pain scale:51-10, Ht-cm: 160.02 cm, Wt-k.92 kg. Assessment: * Assessment: 1. R adiculopathy, lumbar region - M54.16 2 . H ip pain, right - M25.551? Plan: * Treatment: 2. H ip pain, right I maging: XR HIP RIGHT AP AND LATERAL * Immunizations: Immunization record has been reviewed and updated. * Preventive Medicine: Home Exercise Program: P hysical Therapy P t completed PT 06/13/2022 with patient stating it helped relieve her chronic back, knee, hip pain by 40%.. Screenings: T OBACCO USE SCREENING: T he patient smoked: c igarettes, S moking tobacco was last used: [place] pack years of use is: P t [...] dosage changes 9. Do not stockpile or maritaz medications 10. Do not take distantly prescribed [...] or need more you can contact the [facility] addiction hotline at [phone] and they should be able to provide you with free Narcan. * Follow Up: Tessa hollingsworth: OFFICE VISIT,MEDICATION REFILL * * Electronic signature of Abhilash Jiménez MD on 07/03/2025 at 09:40 AM EDT Sign off status: Pending * Provider: Tessa Jiménez MD Date: 0 06/26/2025 Generated for Yuval kendrick/Da/eTransmitting on: 0 07/03/2025 09:40 AM EDT History and Physical Notes * HPI (History of Present Illness) Category Sub-Category Detail Notes Category Not es Hip/Thigh RIGHT HIP XRAY ORDERED 06/26/25 EXAMINATION: MRI of the left hip without [...] contrast using the 3 phil magnet with TransUnion protocol. Bilateral coronal T1 weighted and STIR, [...] follow-up for chronic pain and pain management. On patient's last visit, patient completed a Right L3-4 and L4-5 Transforaminal Epidural injection on 05/29/2025. According to patient discussion and pain dairy, patient is reporting an increase of pain for several days before pain slowly decreased to 3/10 NRS at one week. Patient's CC: Right Low Back/Right Leg Pain, which they score a 5+/10 NRS at rest that increases by end of day or at night and can increase to 10+/10 NRS. Pt describes this pain as aching, shocking, shooting, hot and will increase to shocking and stabbing pains, depending on what she is doing. Patient reports she is still experiencing right leg pain and that she is hobbling due to weak leg and numbness. Pt reports she has not fallen. Pt reports that walking, standing, bending, housework, cooking, golfing, and sitting upright increases this pain. Pt reports that laying down, resting, and pain medications help relieve her pain. Patient also complains of right hip pain that she is rating a 6/10 NRS at rest and increases with certain activity. Patient states she recceived 90% relief from the epidural for about 2 weeks. Pain is not back to baseline . Patient states the only way I can get relief is with the percocet. She denies any side effects, no constipation, UR, confusion of somnolence. No increased GERD. She states she is not doing HEP, though she has been counseled multiple times on this. Pt describes this pain as constant aching. Patient reports her pain increased about three weeks ago without any fall or injury to cause the pain. Pt states walking, twisting and elevating her feet, sleeping with a pillow between her legs and pain medication is helping relieve her pain. We will order right hip X-ray today to complete and review at next office visit. Pt reports no changes in health history and denies any changes in medications from outside providers. Denies adverse effects to prescribed medication. Reports taking medications as prescribed. Medications and interventional treatment are helping with function and ADLs such as golfing. Percocet refill issued today. Miguel printed and reviewed for appropriate refill date. Patient is reporting her prescribed pain medication helps reduce her chronic pain. Last UDS was reviewed and was compliant for prescribed medication. Patient has not scheduled treatment for her pain. We will follow up accordingly. Based on the physical exam and clinical findings, we will schedule a follow-up visit to review right hip X-ray and continue present pain management. SCRIBE~AK
--- OUTSIDE RECORDS SUMMARY | 2025-07-03 09:40 | XMS_ITS | Patient Health Record ---
Author Organization [facility] Address [address] [place] [address] Care Team Providers Care Janitorial Maintenance Worker Name Role Phone Dorawilliam David Primary Care Provider [phone] Jah Jiménez Unavailable [phone] Dom Garsia Unavailable [phone] Marshall Love Unavailable Unavailable Allergies No Known Allergies Results Component Value Reference Range Notes [facility] (Not yet re viewed by provider) Interpretation:Normal Performing Lab: Notes/Report: Normal [facility] (Not yet re viewed by provider) Interpretation:Normal Performing Lab: Notes/Report: Normal [facility] (Not yet re viewed by provider) Interpretation:Normal Performing Lab: Notes/Report: Normal [facility] (Not yet reviewed by provider) Interpretation:Negative Performing Lab: Notes/Report: Negative Reason For Referral No Information Medications Medication SIG (Take, Route, Frequency, Duration) Notes Start Date End Date Status Meloxicam 15 MG Oral; Duration: 4 Days Not-Taking Abosgsjqj-Hnkpsdav-VJ 30-2-10 MG/5ML Oral; Duration: 4 Days Not -Taking Diclofenac Sodium 75 MG TAKE 1 TABLET BY MOUTH EVERY 12 HOURS WITH FOOD Orally Twice a day Active predniSONE 20 MG Oral; Duration: 5 Days Not-Taking Benzonatate 100 MG Oral; Duration: 10 Days Active Narcan 4 MG/0.1ML as directed Nasally 09/14/2024 Active oxyCODONE-Acetaminophen 5-325 MG 1tablet Orally twice daily; Duration: 30 days 06/04/2025 07/26/2025 Active Azithromycin 250 MG Oral; Duration: 5 Days Active Albuterol Sulfate HFA 108 (90 Base) MCG/ACT Inhalation; Duration: 30 Days Active Immunizations Vaccine Route Administration Date [...] 3 yrs and above Unknown 08/13/2023 Administered Influenza, unspecified formulation (CPT 05412 Inactive) Unknown 08/27/2015 Administered GIVEN BY PCP PER PT Influenza, unspecified formulation (CPT 65783 Inactive) Unknown 08/27/2015 Refused Influenza, unspecified formulation (CPT 52964 Inactive) Unknown 02/11/2017 Administered Pneumococcal conjugate PCV 13 Unknown 01/16/2021 Administered Pneumococcal conjugate PCV 13 Unknown 07/10/2021 Refused Pneumococcal conjugate PCV 13 Unknown 08/07/2021 Administered Pneumococcal conjugate PCV 13 Unknown 09/07/2023 Refused Pneumococcal unspecified Unknown 08/15/2015 Pending Pneumococcal unspecified [...] W/U Status Risk Notes Problem Tobacco user (455435693) Nicotine dependence, unspecified, uncomplicated (F17.200) Active confirmed Problem Chronic pain (47611249) Other chronic pain (G89.29) Active confirmed Problem Chronic pain syndrome (435740314) Chronic pain syndrome (G89.4) Active confirmed Problem Lumbosacral spondylosis without myelopathy (47054782) Other spondylosis with radiculopathy, lumbar region (M47.26) Active confirmed Problem Lumbosacral spondylosis without myelopathy (44143606) Other spondylosis, lumbar region (M47.896) Active confirmed Problem Displacement of lumbar intervertebral disc without myelopathy (13128354) Other intervertebral disc displacement, lumbar region (M51.26) Active confirmed Problem Lumbar radiculopathy (027161818) Radiculopathy, lumbar region (M54.16) Active confirmed Problem Arthralgia of the pelvic region and thigh (305994665) Left hip pain (M25.552) Active confirmed Problem Right knee pain (378215350067980) Right knee pain (M25.561) Active confirmed Problem Pain in sacrum (finding) (7102150243) Sacral pain (M53.3) Active confirmed Problem Left knee pain (686869674651718) Left knee pain (M25.562) Active confirmed Problem Osteoarthritis of knee (785177035) Osteoarthritis of right knee (M17.9) Active confirmed Problem Arthralgia of the ankle and/or foot (784273652) Right ankle pain (M25.571) Active confirmed Problem Osteoarthritis of multiple joints (539112488) Osteoarthritis of multiple joints, unspecified osteoarthritis type (M15.9) Active confirmed Problem Pain in limb (69877980) Pain of right lower extremity (M79.604) Active confirmed Problem High risk drug monitoring status (945086291) Chronically on opiate therapy (Z79.891) Active confirmed Vital Signs Heart Rate 71 /min 06/26/2025 Oximetry 95 % 06/26/2025 Blood pressure diastolic 93 mm Hg 06/26/2025 Height 63 in 06/26/2025 Blood pressure systolic 156 mm Hg 06/26/2025 Weight 185 lbs 06/26/2025 BMI 32.77 kg/m2 06/26/2025 Encounters Encounter Location Date Provider Diagnosis [facility] [address] [place] [address] 07/20/2024 Jah Jiménez Left hip pain M25.552 and Right knee pain M25.561 [facility] [address] [place] [address] 10/19/2024 Jah Klickovich Left hip pain M25.552 and Right knee pain M25.561 [facility] [address] [place] [address] 12/05/2024 Jah Klickovich Left hip pain M25.552 [facility] [address] [place] [address] 01/02/2025 Ajh Klickovich Left hip pain M25.552 [facility] [address] [place] [address] 01/30/2025 Jah Klickovich Right knee pain M25.561 and Left hip pain M25.552 [facility] [address] [place] [address] 02/27/2025 Jah Klickovich Right knee pain M25.561 ; Radiculopathy, lumbar region M54.16 and Left hip pain M25.552 [facility] [address] [place] [address] 05/29/2025 Jah Truickovic Radiculopathy, lumbar region M54.16 [facility] [address] [place] [address] 06/26/2025 Jah Klickovich Radiculopathy, lumbar region M54.16 and Hip pain, right M25.551 [facility] [address] [place] [address] 08/17/2024 Marshall Bienville Left hip pain M25.552 and Sacral pain M53.3 [facility] [address] [place] [address] 09/14/2024 Marshall Bienville Sacral pain M53.3 ; Chronic pain syndrome G89.4 ; Left hip pain M25.552 and Right knee pain M25.561 [facility] [address] [place] [address] 04/03/2025 Jah Truickovic Radiculopathy, lumbar region M54.16 ; Right knee pain M25.561 and Left hip pain M25.552 [facility] [address] [place] [address] 05/01/2025 Jah Klickovich Radiculopathy, lumbar region M54.16 ; Left hip pain M25.552 and Pain of right lower extremity M79.604 [facility] [address] [place] [address] 06/26/2025 Jah Klickovich Radiculopathy, lumbar region M54.16 [facility] [address] [place] [address] 07/17/2024 Jah Klickovich Right knee pain M25.561 [facility] [address] [place] [address] 07/20/2024 Jah Klickovich Left hip pain M25.552 [facility] [address] [place] [address] 08/17/2024 Jah Klickovich Left hip pain M25.552 [facility] [address] [place] [address] 09/14/2024 Jah Klickovich Left hip pain M25.552 [facility] [address] [place] [address] 10/19/2024 Jah Klickovich Left hip pain M25.552 [facility] [address] [place] [address] 10/19/2024 Jah Klickovich [facility] [address] [place] [address] 12/05/2024 Jah Klickovich Left hip pain M25.552 [facility] [address] [place] [address] 01/02/2025 Jah Klickovich Left hip pain M25.552 [facility] [address] [place] [address] 01/31/2025 Jah Klickovich Right knee pain M25.561 [facility] [address] [place] [address] 02/27/2025 Jah Klickovich Right knee pain M25.561 [facility] [address] [place] [address] 04/03/2025 Jah Jiménez Radiculopathy, lumbar region M54.16 [facility] [address] [place] [address] 04/05/2025 Jah Jiménez [facility] [address] [place] [address] 05/01/2025 Jah Jessy Radiculopathy, lumbar region M54.16 [facility] [address] [place] [address] 05/29/2025 Jah Jessy Radiculopathy, lumbar region M54.16 Assessments Encounter Date Diagnosis (ICD Code) Assessment Notes Treatment Notes Treatment Clinical Notes Section Notes 07/17/2024 Right knee pain (ICD-10 - M25.561) [...] Right knee pain (ICD-10 - M25.561) 04/03/2025 Radiculopathy, lumbar region (ICD-10 - M54.16) 04/03/2025 Radiculopathy, lumbar region (ICD-10 - M54.16) 05/01/2025 Radiculopathy, lumbar region (ICD-10 - M54.16) PERCOCET, DNF 05/05/25 05/01/2025 Radiculopathy, lumbar region (ICD-10 - M54.16) 05/29/2025 Radiculopathy, lumbar region (ICD-10 - M54.16) 05/29/2025 Radiculopathy, lumbar region (ICD-10 - M54.16) 06/26/2025 Radiculopathy, lumbar region (ICD-10 - M54.16) PERCOCET, DNF 07/04/25 06/26/2025 Radiculopathy, lumbar region (ICD-10 - M54.16) 04/03/2025 Right knee pain (ICD-10 - M25.561) 06/26/2025 Hip pain, right (ICD-10 - M25.551) 05/01/2025 Left hip pain (ICD-10 - M25.552) 02/27/2025 Radiculopathy, lumbar region (ICD-10 - M54.16) 01/30/2025 Left hip pain (ICD-10 - M25.552) 10/19/2024 Right knee pain (ICD-10 - M25.561) 09/14/2024 Left hip pain (ICD-10 - M25.552) 09/14/2024 Right knee pain (ICD-10 - M25.561) 02/27/2025 Left hip pain (ICD-10 - M25.552) 05/01/2025 Pain of right lower extremity (ICD-10 - M79.604) 04/03/2025 Left hip pain (ICD-10 - M25.552) 07/20/2024 Other Patient denies new symptoms. She [...] prescriptions, non-prescribed drugs, or overuse of prescribed medications.Monito ring chronic opioid therapy is critical because risks [...] Profile 10/21/2023 [facility] Profile 01/18/2024 XR HIP RIGHT AP AND LATERAL 06/26/2025 XR LUMBAR SPINE FLEXION AND EXTENSION ON LY 04/03/2025 MRI LUMBAR SPINE WO CONTRAST 04/03/2025 [facility] 04/20/2024 [facility] 07/20/2024 [facility] 10/19/2024 [facility] 01/30/2025 [facility] 05/01/2025 Next Appt Details Provider Name:Jah Clayton gera, 07/31/2025 08:30:00 AM, [address] [place], [address], Insurance Providers Payer Name Payer Address Payer Phone Subscriber Number Group Number Insured Name Patient Relationship to Insured Coverage Start Date Coverage End Date [employer] [address] [address] [place] [address] [id number] February,a Self - patient is the insured 4 Medical (General) History Medical History History ICD Code Cancer/Tumor Hypercholesterolemia Surgical History Surgery Date(Month/Year) Tonsilectomy 1974 Hysterectomy 1993 Eye Surgery Hip Replacement Surgery 2006 RIGHT KNEE REPLACEMENT 04/2020
--- OUTSIDE RECORDS SUMMARY | 2025-07-03 09:40 | XMS_ITS | Clinical Summary ---
Author Organization [facility] Address [address] [place] [address] Care Team Providers Care Sales Engineering Manager Name Role Phone Provider, No Known Primary Care Provider Unavail able Social History Tobacco Use Types Packs/Day Years Used Date Smoking Tobacco: Never Assessed Abuse Screen Answer Date Recorded Unsafe at Home or Work/School Not on file Feels Threatened by Someone? Not on file 06/2023 Does Anyone Keep You from Co ntacting Others or Doint Things Outside the Home? Not on file 08/02/2023 Physical Sign of Abuse Present Not on file 1 Housing Stability Answer Date Recorded Current Living Arrangements Not on file 06/2023 Potentially Unsafe Housing Conditions Not on alhaji e 08/02/2023 Family and Community Support Answer Jimi e Recorded Help with Day-to-Day Activities Not on file 08/02/2023 Lonely or Isolated Not on file 08/02/2023 Employment Answer Date Recorded Do you want help finding or keeping work or a jimmy b? Not on file 08/02/2023 Disabilities Answer Date Recorded Concentrating, Remembering, or Making Decisions Difficulty Not on file 08/02/2023 Doing Errands Independently Difficulty Not on fi le 08/02/2023 Education Answer Date Recorded Help with school or training? Not on file Preferred Language Not on file 08/02/2023 Comments Unknown Sex and Gender Information Value Date Recorded Sex Assigned at Not on file Legal Sex Female 12:25 PM EDT Gender Identity Not on file Sexual Orientation Not on file Last Filed Vital Signs Vital Sign Reading Time Taken Comments Blood Pressure 145/85 04/18/2014 11:24 AM EDT Pulse - - Temperature - - Respiratory Rate - - Oxygen Saturation - - Inhaled Oxygen Concentration - - Weight 77.1 kg (170 lb) 04/18/2014 11:24 AM EDT Height 160 cm (5' 3 ) 04/18/2014 11:24 AM EDT Body Mass Index 30.11 04/18/2014 11:24 AM EDT Plan of Treatment Health Maintenance Due Date Last Done Comments Annual Gynecologic Pelvic and Breast Exam 1960 TDAP/TD VACCINES (1 - Tdap) 1980 MAMMOGRAM 2001 COLOGUARD 2006 COLON CANCER SCREENING 5 YEAR SIGMOIDOSCOPY 2006 COLONOSCOPY [address] CANCER SCREENING 2006 CT COLONOGRAPHY 2006 FECAL OCCULT BLOOD TEST 2006 FIT Testing (1 year) 2006 Pneumococcal Vaccine 50+ (1 of 1 - PCV) 2011 ZOSTER VACCINE (1 of 2) 2011 ANNUAL PHYSICAL 06/30/2017 HEPATITIS C SCREENING 06/30/2017 COVID-19 Vaccine ( - season) 2025 INFLUENZA VACCINE 07/25/2025 Care Teams Sales Engineering Manager Relationship Specialty Start Date End Date Provider, No Known [facility] [place] [address] PCP - General 01/02/16
--- NOTE | 2025-07-03 09:43 | XR_ITS ---
FINAL REPORT CLINICAL HISTORY: RIGHT HIP PAIN x 1 week FINDINGS: Four views of the right hip/pelvis were obtained. There is no acute fracture or dislocation. There are changes from left hip arthroplasty. There is mild degenerative disease of the right hip. Soft tissues are unremarkable. IMPRESSION: Mild right hip degenerative disease. Reviewed, Interpreted and Dictated by Camelia Villalba MD Transcribed by Wen Guzmán Authenticated and [facility]
== END 2025-07-03 23:59 | disposition home or self-care (01) ==
LOC: RAD 09:35
PROVIDERS: PCP Physician Assistant; Visit Provider Anesthesiology Pain Medicine
DX: M16.11 Unilateral primary osteoarthritis, right hip (principal)
CPT/HCPCS: 73502

== ENCOUNTER 2025-08-10 07:31 | Outpatient (CLI) | payer MEDICARE, SELFPAY ==
--- OUTSIDE RECORDS SUMMARY | 2025-04-24 05:15 | XMS_ITS ---
Author Organization [facility] Address [address] [place] [address] Care Team Providers Care Intake Assessor Name Role Phone David Padilla Primary Care Provider Jah Jiménez Unavailable [phone] Dom Garsia Unavailable [phone] REASON FOR VISIT OFFICE VISIT Encounters Encounter Location Date Provider Diagnosis [facility] [address] [place] [address] 04/24/2025 Jah Jiménez Plan Of Treatment Next Appt Details Provider Name:Jah boss, 08/28/2025 08:30:00 AM, [address] [place], [address], Progress Notes * February,aDOB:1960 (64 yo F)Acc No.[id number]:04/24/2025 Progress Notes Patient: Jenni HAMILTON Provider: Tessa Jiménez MD :1960 A ge:64 Y S ex:Female Date:04/24/2025 Address: [address] [facility] Pcp:David Padilla Subjective: * Chief Complaints: * 1 . OFFICE VISIT. * Medical History: Objective: * Vitals: Assessment: Plan: * Treatment: * * Electronic signature of Ahbilash Jiménez MD on 08/10/2025 at 07:34 AM EDT Sign off status: Pending * Provider: Tessa Jiménez MD Date: 0 04/24/2025 Generated for Yuval kendrick/Da/Kevon on: 1 07:34 AM EDT
--- OUTSIDE RECORDS SUMMARY | 2025-05-29 04:45 | XMS_ITS ---
Author Organization [facility] Address [address] [place] [address] Care Team Providers Care Butadiene Converter Operator Name Role Phone DoraDavid thomas Primary Care Provider [phone] Jah Jiménez Unavailable [phone] Dom Garsia Unavailable [phone] Allergies No Known Allergies REASON FOR VISIT [...] 20 MG Oral; Duration: 5 Days Not-Taking Qfoambmju-Wngkqtpc-IO 30-2-10 MG/5ML Oral; Duration: 4 Days Not [...] [facility] [address] [place] [address] 05/29/2025 Jah Ottjimnydia Radiculopathy, lumbar region M54.16 [...] day Next Appt Details Provider Name:Jah boss, 08/28/2025 08:30:00 AM, [address] [place], [address], Progress Notes * February,aDOB:1960 (64 yo F)Acc No.[id number]:05/29/2025 Progress Note Patient: Jenni HAMILTON Provider: Tessa Jiménez MD :1960 A ge:64 Y S ex:Female Date:05/29/2025 Address:[address] [place], [place] [id number] Pcp:David Padilla Subjective: * Chief Complaints: * [...] Meloxicam 15 MG Tablet Oral , Not-Taking Lpucadbsd-Xbqeumga-II 30-2-10 MG/5ML Syrup Oral , Medication List [...] Electronic signature of Abhilash Jiménez MD on 08/10/2025 at 07:34 AM EDT Sign off status: Pending * Provider: Tessa Jiménez MD Date: 0 05/29/2025 Generated for Yuval kendrick/Da/Cataitting on: 1 07:34 AM EDT History and Physical Notes * [...]
--- OUTSIDE RECORDS SUMMARY | 2025-06-26 04:30 | XMS_ITS ---
Author Organization [facility] Address [address] [place] [address] Care Team Providers Care Pest Control Technician Name Role Phone DoraDavid thomas Primary Care Provider Jah Jiménez Unavailable [phone] Dom Garsia Unavailable [phone] Allergies No Known Allergies REASON FOR VISIT OFFICE VISIT Medications Medication SIG (Take, Route, Frequency, Duration) Notes Start Date End Date Status Meloxicam 15 MG Oral; Duration: 4 Days Not-Taking Dysybkaxg-Hmphkyas-YM 30-2-10 MG/5ML Oral; Duration: 4 Days Not [...] 06/26/2025 Encounters Encounter Location Date Provider Diagnosis [facility] [address] [place] [address] 06/26/2025 Jah Jiménez Radiculopathy, lumbar region M54.16 [...] Reason: OFFICE VISIT,MEDICATION REFILL Provider Name:Jah boss, 08/28/2025 08:30:00 AM, [address] [place], [address], Progress Notes * February,aDOB:1960 (64 yo F)Acc No.[id number]:06/26/2025 Progress Notes Patient: Jenni HAMILTON Provider: Tessa Jiménez MD :1960 A ge:64 Y S ex:Female Date:06/26/2025 Address:[address] [place], [place] [id number] Pcp:David Padilla Subjective: * Chief Complaints: * [...] and facet hypertrophic change result in mild fyra-okchsjl-syjx-right bilateral foraminal stenosis. No significant canal stenosis. [...] contrast using the 3 phil magnet with [employer] protocol. Bilateral coronal T1 weighted and STIR, [...] Meloxicam 15 MG Tablet Oral , Not-Taking Ptwgfbggz-Hurwkhvk-UZ 30-2-10 MG/5ML Syrup Oral , Medication List [...] maging: XR HIP RIGHT AP AND LATERAL (Performed Date - 07/03/2025) * Immunizations: Immunization record has been reviewed and updated. * Preventive Medicine: Home Exercise Program: P hysical Therapy P t completed PT 06/13/2022 with patient stating it helped relieve her chronic back, knee, hip pain by 40%.. Screenings: T OBACCO USE SCREENING: T he patient smoked: zelda igarettes, S moking tobacco was last used: [...] or need more you can contact the [facility] addiction hotline at [phone] and they should be able to provide you with free Narcan. * Follow Up: Tessa hollingsworth: OFFICE VISIT,MEDICATION REFILL * * Electronic signature of Abhilash Jiménez MD on 08/10/2025 at 07:34 AM EDT Sign off status: Pending * Provider: Tessa Jiménez MD Date: 0 06/26/2025 Generated for Yuval kendrick/Da/eTransmitting on: 1 07:34 AM EDT History and [...] contrast using the 3 phil magnet with [employer] protocol. Bilateral coronal T1 weighted and STIR, [...] hip X-ray and continue present pain management. YAMIL~ZAID
--- OUTSIDE RECORDS SUMMARY | 2025-07-03 12:43 | XMS_ITS ---
Author Organization [facility] Address [address] [place] [address] Care Team Providers Care Mh Teacher Name Role Phone David Padilla Primary Care Provider [phone] Jah Jiménez Unavailable [phone] Dom Garsia Unavailable [phone] REASON FOR VISIT RIGHT HIP XRAY COMPLETED... Encounters Encounter Location Date Provider Diagnosis [facility] [address] [place] [address] 07/03/2025 Jah Jiménez Plan Of Treatment Next Appt Details Provider Name:Jah boss, 08/28/2025 08:30:00 AM, [address] [place], [address], Progress Notes * February,aDOB:1960 (64 yo F)Acc No.[id number]:07/03/2025 Patient: Jenni HAMILTON :1960 A ge:64 Y S ex:Female Address:[address] [place] [address] [place], [address] Subjective: * Chief Complaints: * R IGHT HIP XRAY COMPLETED... * HPI: R ight hip: RIGHT HIP X-RAY COMPLETED 07/03/25 FINDINGS: FOUR VIEWS OF THE RIGHT HIP/PELVIS WERE OBTAINED. THERE IS NO ACUTE FRACTURE OR DISLOCATION. THERE ARE CHANGES FROM LEFT HIP ARTHROPLASTY. THERE IS MILD DEGENERATIVE DISEASE OF THE RIGHT HIP. SOFT TISSUES ARE UNREMARKABLE. IMPRESSION: MILD RIGHT HIP DEGENERATIVE DISEASE. * Medical History: * Surgical History: * Hospitalization/Major Diagno stic Procedure: * Medications: Objective: * Vitals: * Physical Examination: Assessment: Plan: * Treatment: * Procedure Codes: * true * Date: Generated for Yuval kendrick/Da/Kevon on: 07:33 AM EDT
--- OUTSIDE RECORDS SUMMARY | 2025-07-17 07:45 | XMS_ITS ---
Author Organization [facility] Address [address] [place] [address] Care Team Providers Care Strategic Alliances Manager Name Role Phone David Padilla Primary Care Provider [phone] Jah Jiménez Unavailable [phone] Dom Garsia Unavailable [phone] Allergies No Known Allergies REASON FOR VISIT OFFICE VISIT Medications Medication SIG (Take, Route, Frequency, Duration) Notes Start Date End Date Status oxyCODONE-Acetaminophen 5-325 MG 1tablet Orally twice daily 07/04/2025 Active predniSONE 20 MG Oral; Duration: 5 Days Not-Taking Diclofenac Sodium 75 MG TAKE 1 TABLET BY MOUTH EVERY 12 HOURS WITH FOOD Orally Twice a day Active Qepiuttym-Pmezcjaa-LN 30-2-10 MG/5ML Oral; Duration: 4 Days Not -Taking Meloxicam 15 MG Oral; Duration: 4 Days Not-Taking Azithromycin 250 MG Oral; Duration: 5 Days Active Benzonatate 100 MG Oral; Duration: 10 Days Active Narcan 4 MG/0.1ML as directed Nasally 09/14/2024 Active Albuterol Sulfate HFA 108 (90 Base) MCG/ACT Inhalation; Duration: 30 Days Active Social History Tobacco use other than smoking: Question Answer Notes Are you an other tobacco user? No Vital Signs Blood pressure systolic 152 mm Hg 07/17/20 25 Blood pressure diastolic 109 mm Hg 025 Heart Rate 76 /min 07/17/2025 Height 63 in 07/17/2025 Weight 185 lbs 07/17/2025 BMI 32.77 kg/m2 07/17/2025 Oximetry 93 % 07/17/2025 Encounters Encounter Location Date Provider Diagnosis [facility] [address] [place] [address] 07/17/2025 Jah Jiménez Radiculopathy, lumbar region M54.16 and Right hip pain M25.551 Assessments Encounter Date Diagnosis (ICD Code) Assessment Notes Treatment Notes Treatment Clinical Notes Section Notes 07/17/2025 Radiculopathy, lumbar region (ICD-10 - M54.16) 07/17/2025 Right hip pain (ICD-10 - M25.551) Plan Of Treatment Medication Medication Name Sig Start Date Stop Date Notes oxyCODONE-Acetaminophen 5-32 5 MG 1tablet Orally twice daily 07/04/2025 Pending Test Test Name Order Date MRI HIP RIGHT WO CONTRAST 07/17/2025 Next Appt Details Provider Name:Jah boss, 08/28/2025 08:30:00 AM, [address] [place], [address], Progress Notes * FEBRUARYAngelicB:1960 (64 yo F)Acc No.[id number]:07/17/2025 Progress Notes Patient: Jenni HAMILTON Provider: Tessa Jiménez MD :1960 A ge:64 Y S ex:Female Date:07/17/2025 Address:[address] [place], [place] [id number] Pcp:David Padilla Subjective: * Chief Complaints: * O FFICE VISIT * HPI: P ain Management: Assessment and followup F ollowup plan documented : Y es. I nterim History: Patient presents for a follow up for chronic pain management. Patient's CC: right hip into groin pain, which they score a 8/10 NRS at rest that increases to 10/10 NRS with activity. Pt describes this pain as aching,shock-like,tingling and shooting. Pt reports that this pain is constant. Pt reports that nothing helps reduce this pain. Pt reports no changes in health history and denies any changes in medications from outside providers. Denies adverse effects to prescribed medication. Reports taking medications as prescribed. No medications were provided today, dates verified with JOSE. Pt to continue percocet. Last UDS was reviewed and was compliant for prescribed medication. Patient would like to treat their pain. They have scheduled treatment at this time. We will follow up accordingly and continue medication management. Will order MRI hip. X ray hip reviewed. Based on the physical exam and clinical findings, we will schedule right hip injection. Goal of treatment decrease hip going into groin pain. Scribe-SA. * ROS: C ervical: Denies N rito [...] D epressed mood. ? * Medical History: * Surgical History: T onsilectomy 1974Hysterectomy 1992Eye Surgery Hip Replacement Surgery 2005RIGHT KNEE REPLACEMENT 04/2020 * Hospitalization/Major Diagno stic Procedure: D adam Past Hospitalization * Family History: M other: alive. F [...] f inished high school. * Medications: T akingoxyCODONE-Acetaminophen 5-325 MG Tablet 1tablet Orally twice daily , stop date 5Benzonatate 100 MG Capsule Oral Azithromycin 250 MG Tablet Oral Albuterol Sulfate HFA 108 (90 Base) MCG/ACT Aerosol Solution Inhalation Narcan 4 MG/0.1ML Liquid as directed Nasally Diclofenac Sodium 75 MG Tablet Delayed Release TAKE 1 TABLET BY MOUTH EVERY 12 HOURS WITH FOOD Orally Twice a day Taking oxyCODONE-Acetaminophen 5-325 MG Tablet 1tablet Orally twice daily , stop date 07/26/2025Taking Benzonatate 100 MG Capsule Oral Taking Azithromycin 250 MG Tablet Oral Taking Albuterol Sulfate HFA 108 (90 Base) MCG/ACT Aerosol Solution Inhalation Taking Narcan 4 MG/0.1ML Liquid as directed Nasally Taking Diclofenac Sodium 75 MG Tablet Delayed Release TAKE 1 TABLET BY MOUTH EVERY 12 HOURS WITH FOOD Orally Twice a day Not-TakingpredniSONE 20 MG Tablet Oral Meloxicam 15 MG Tablet Oral Tpfpweiuj-Pbgosfgr-UM 30-2-10 MG/5ML Syrup Oral Medication List reviewed and reconciled with the patientNot-Taking predniSONE 20 MG Tablet Oral Not-Taking Meloxicam 15 MG Tablet Oral Not-Taking Ikquvyfvt-Reywamow-MB 30-2-10 MG/5ML Syrup Oral Medication List reviewed and reconciled with the patient * Allergies: N .K.D.A.no[Allergies Verified] Objective: * Vitals: H R:76/min, BP:152/109mm Hg, Ht: 63 in, Wt:185lbs, BMI:32.77Index, Oxygen sat %:93, Pain scale:81-10, Ht-cm: 160.02 cm, Wt-k.92 kg. * Examination: [...] Oriented X3, intact recent and remote memory. * Physical Examination: R IGHT HIP FADIR AND POSITIVE LOG ROLL// TENDER TO PALPATION AND WEIGHT BEARING. Assessment: * Assessment: 1. R adiculopathy, lumbar region - M54.16 2 . R ight hip pain - M25.551? Plan: * Treatment: 2. R ight hip pain I maging: MRI HIP RIGHT WO CONTRAST * Procedures: H OME EXERCISE PROGRAM TO BE TRIALED AT TWICE WEEKLY: EXERCISE PROGRAM HAS BEEN CREATED BY THE [employer] FOR KNEE CONDITIONING, HOME EXERCISE PROGRAM TO BE TRIALED AT TWICE WEEKLY: EXERCISE PROGRAM HAS BEEN CREATED BY THE [employer] FOR HIP CONDITIONING, HOME EXERCISE PROGRAM TO BE TRIALED AT TWICE WEEKLY: EXERCISE PROGRAM HAS BEEN CREATED BY THE [employer] FOR SPINE CONDITIONING. * Immunizations: Immunization record has been reviewed and updated. * Procedure Codes: * Preventive Medicine: Home Exercise Program: P hysical Therapy P t completed PT 06/13/2022 with patient stating it helped relieve her chronic back, knee, hip pain by 40%.. Screenings: T OBACCO USE SCREENING: T he patient smoked: c igarettes, S moking tobacco was last used: t jacob, T otal pack years of use is: P t [...] or need more you can contact the [facility] addiction hotline at [phone] and they should be able to provide you with free Narcan. * * Sign off status: Completed true * Provider: Tessa Jiménez MD Date: 0 07/17/2025 Generated for Yuval kendrick/Da/eTransmitting on: 1 07:34 AM EDT History and Physical Notes * HPI (History of Present Illness) Category Sub-Category Detail Notes Category Not es Interim History Patient presents for a follow up for chronic pain management. Patient's CC: right hip into groin pain, which they score a 8/10 NRS at rest that increases to 10/10 NRS with activity. Pt describes this pain as aching,shock-like, tingling and shooting. Pt reports that this pain is constant. Pt reports that nothing helps reduce this pain. Pt reports no changes in health history and denies any changes in medications from outside providers. Denies adverse effects to prescribed medication. Reports taking medications as prescribed. No medications were provided today, dates verified with JOSE. Pt to continue percocet. Last UDS was reviewed and was compliant for prescribed medication. Patient would like to treat their pain. They have scheduled treatment at this time. We will follow up accordingly and continue medication management. Will order MRI hip. X ray hip reviewed. Based on the physical exam and clinical findings, we will schedule right hip injection. Goal of treatment decrease hip going into groin pain. Scribe-SA Pain Management Assessment and followup Followup plan documented :: Yes Physical Examination Category Sub-Category Detail Notes Section Note s RIGHT HIP FADIR AND POSITIVE LOG ROLL// TENDER TO PALPATION AND WEIGHT BEARING Examination Category Sub-Category Detail Notes Category Not [...]
--- OUTSIDE RECORDS SUMMARY | 2025-07-31 04:30 | XMS_ITS ---
Author Organization [facility] Address [address] [place] [address] Care Team Providers Care Rough Rounder Name Role Phone David Padilla Primary Care Provider [phone] Jah Jiménez Unavailable [phone] Dom Garsia Unavailable [phone] REASON FOR VISIT OFFICE VISIT Encounters Encounter Location Date Provider Diagnosis [facility] [address] [place] [address] 07/31/2025 Jah Jiménez Plan Of Treatment Next Appt Details Provider Name:Jah boss, 08/28/2025 08:30:00 AM, [address] [place], [address], Progress Notes * February,aDOB:1960 (64 yo F)Acc No.[id number]:07/31/2025 Progress Notes Patient: Jenni HAMILTON Provider: Tessa Jiménez MD :1960 A ge:64 Y S ex:Female Date:07/31/2025 Address: [address] [facility] Pcp:David Padilla Subjective: * Chief Complaints: * 1 . OFFICE VISIT. * Medical History: Objective: * Vitals: Assessment: Plan: * Treatment: * * Electronic signature of Abhilash Jiménez MD on 08/10/2025 at 07:33 AM EDT Sign off status: Pending * Provider: Tessa Jiménez MD Date: 1 Generated for Yuval kendrick/Da/Kevon on: 1 07:33 AM EDT
--- OUTSIDE RECORDS SUMMARY | 2025-07-31 04:30 | XMS_ITS ---
Author Organization [facility] Address [address] [place] [address] Care Team Providers Care Biochemical Engineer Name Role Phone DoraDavid thomas Primary Care Provider Jah Jiménez Unavailable [phone] Dom Garsia Unavailable [phone] Allergies No Known Allergies REASON FOR VISIT RIGHT HIP INJECTION Medications Medication SIG (Take, Route, Frequency, Duration) Notes Start Date End Date Status Diclofenac Sodium 75 MG TAKE 1 TABLET BY MOUTH EVERY 12 HOURS WITH FOOD Orally Twice a day; Duration: 30 days 10/29/2025 Active Pvepenfce-Dkjoztdu-IJ 30-2-10 MG/5ML Oral; Duration: 4 Days Not -Taking Meloxicam 15 MG Oral; Duration: 4 Days Not-Taking Azithromycin 250 MG Oral; Duration: 5 Days Active Benzonatate 100 MG Oral; Duration: 10 Days Active Narcan 4 MG/0.1ML as directed Nasally 09/14/2024 Active predniSONE 20 MG Oral; Duration: 5 Days Not-Taking oxyCODONE-Acetaminophen 5-325 MG 1tablet Orally twice daily; Duration: 30 days 07/04/2025 08/30/2025 Active Albuterol Sulfate HFA 108 (90 Base) MCG/ACT Inhalation; Duration: 30 Days Active Social History Tobacco use other than smoking: Question Answer Notes Are you an other tobacco user? No Vital Signs Blood pressure systolic 138 mm Hg 07/31/20 25 Blood pressure diastolic 84 mm Hg 025 Heart Rate 78 /min 07/31/2025 Height 63 in 07/31/2025 Weight 185 lbs 07/31/2025 BMI 32.77 kg/m2 07/31/2025 Oximetry 94 % 07/31/2025 Encounters Encounter Location Date Provider Diagnosis [facility] [address] [place] [address] 07/31/2025 Jah Jiménez Radiculopathy, lumbar region M54.16 Assessments Encounter Date Diagnosis (ICD Code) Assessment Notes Treatment Notes Treatment Clinical Notes Section Notes 07/31/2025 Radiculopathy, lumbar region (ICD-10 - M54.16) Plan Of Treatment Medication Medication Name Sig Start Date Stop Date Notes Diclofenac Sodium 75 MG TAKE 1 TABLET BY MOUTH EVERY 12 HOURS WITH FOOD Orally Twice a day; Duration: 30 days 10/29/2025 oxyCODONE-Acetaminophen 5-32 5 MG 1tablet Orally twice daily; Duration: 30 days 07/04/2025 08/30/2025 Next Appt Details Provider Name:Jah boss, 08/28/2025 08:30:00 AM, [address] [place], [address], Progress Notes * February,aDOB:1960 (64 yo F)Acc No.[id number]:07/31/2025 Progress Note Patient: Jenni HAMILTON Provider: Tessa Jiménez MD :1960 A ge:64 Y S ex:Female Date:07/31/2025 Address:[address] [place], [place] [id number] Pcp:David Padilla Subjective: * Chief Complaints: * 1 . RIGHT HIP INJECTION. * HPI: P ain Management: Assessment and followup F ollowup plan documented : Y es. I nterim History: Patient presents for a Right Hip Injection. Patient is scoring their pain 6/10NRS and 10/10NRS at its worst. Patient has signed the consent form and any questions were answered. Patient denies any changes in medications or health history. Allergies reviewed; patient denies any new allergies or adverse drug effects. Patient denies current anticoagulation and/or antibiotic therapy. Patient is not diabetic. UDS collected today, last dose of Percocet was at 3:30 am. SCRIBE: ES. * Medical History: C ancer/Tumor , Hypercholesterolemia. * Surgical History: T onsilectomy 1973, Hysterectomy 1992, Eye Surgery , Hip Replacement Surgery 2005, RIGHT KNEE REPLACEMENT 04/2020. * Hospitalization/Major Diagno stic Procedure: D enies Past Hospitalization. * Family History: M other: [...] H ousehold M arital status: w pedro, L bindu of education: f inished high school. [...] WITH FOOD Orally Twice a day , Taking oxyCODONE-Acetaminophen 5-325 MG Tablet 1tablet Orally twice daily , Not-Taking predniSONE 20 MG Tablet Oral , Not-Taking Meloxicam 15 MG Tablet Oral , Not-Taking Xvwgdgxda-Rhdrjygv-CE 30-2-10 MG/5ML Syrup Oral , Medication List reviewed and reconciled with the patient * Allergies: N .K.D.A. Objective: * Vitals: H R:78/min, BP:138/84mm Hg, Ht: 63 in, Wt:185lbs, BMI:32.77Index, Oxygen sat %:94, Pain scale:61-10, Ht-cm: 160.02 cm, Wt-k.92 kg. Assessment: * Assessment: 1. R adiculopathy, lumbar region - M54.16 Plan: * Treatment: * Procedures: R IGHT HIP JOINT INJECTION Medical Necessity: We believe that the patient's HIP pain is: A combination of both a neuralgia/sympathetic pain as well as osteoarthritic in nature. The patient has been exhibiting symptoms consistent with osteoarthritic, and sympathetic mediated hip pain. The patient has failed all prior conservative care including steroid injections and physical therapy. The patient is being treated today regarding hip osteoarthritis. Pain is chronic in nature and has been present for >3 months. Pre-procedure diagnosis: Osteoarthritis of the Right hip. Informed Consent: Risks, benefits, potential complications, and alternative treatment options were discussed with the patient and they have elected to pursue treatment today. I personally confirmed the procedure, side, and site to be injected with the patient in the procedure area. Conscious Sedation/Monitoring: The patient did not receive IV or inhalational anesthesia for the procedure. Verbal contact was maintained throughout the procedure. Antibiotic: No antibiotic was used. Procedure Description: The patient was placed on the fluoroscopy table in the Left Lateral Decubitus Position. The area of the groin extending to the greater trochanter was prepped and draped in the usual sterile fashion. Details RIGHT HIP JOINT INJECTION: The right lower extremity was placed in an externally rotated position. Using anatomic landmarks, the skin was anesthetized at an area 2 cm below the anterior superior iliac spine, and 3 cm lateral to the palpable femoral pulse. A 27-gauge, 1 1/2- inch needle with 3 cc of 1% lidocaine and was used for local anesthesia. Then, a 22- gauge, 86b1ufze inch spinal needle was advanced at an angle of approximately 60 degrees posteromedially into the hip joint. Positioning was confirmed using fluoroscopy. Anteroposterior (AP), oblique, and lateral views confirmed positioning in the joint space and 3 cc of contrast provided a good outline of the joint with no diverticula, capsular tears, or ligamentous extravasation. Then, 9 cc of 0.25% bupivacaine and 6 mg of Betamethasone 6mg/ml was injected into the joint. The needle was then withdrawn and a dressing was applied. * Preventive Medicine: Home Exercise Program: P hysical Therapy P jazmin completed PT 06/13/2022 with patient stating it helped relieve her chronic back, knee, hip pain by 40%.. Screenings: T OBACCO USE SCREENING: T he patient smoked: c igarettes, S moking tobacco was last used: jazmin james, Jazmin biggs pack years of use is: P jazmin reports smoking 1/2 to one pack per [...] or need more you can contact the [facility] addiction hotline at [phone] and they should be able to provide you with free Narcan. * * Electronic signature of Abhilash Jiménez MD on 08/10/2025 at 07:33 AM EDT Sign off status: Pending * Provider: Tessa Jiménez MD Date: Generated for Yuval kendrick/Da/Kevon on: 07:33 AM EDT History and Physical Notes * HPI (History of Present Illness) Category Sub-Category Detail Notes Category Not es Interim History Patient presents for a Right Hip Injection. Patient is scoring their pain 6/10NRS and 10/10NRS at its worst. Patient has signed the consent form and any questions were answered. Patient denies any changes in medications or health history. Allergies reviewed; patient denies any new allergies or adverse drug effects. Patient denies current anticoagulation and/or antibiotic therapy. Patient is not diabetic. UDS collected today, last dose of Percocet was at 3:30 am. SCRIBE: ES Pain Management Assessment and followup Followup plan documented :: Yes
--- NOTE | 2025-08-10 07:33 | MR_ITS ---
FINAL REPORT CLINICAL HISTORY: RIGHT HIP PAIN pt stated hip is hot to the touch pain in groin affected pts walking pt stated that she got a steroid shot last week FINDINGS: Multiplanar and multisequence imaging of the right hip were obtained without contrast. There are postoperative changes from left hip arthroplasty. There is subchondral edema of the femoral head. Degenerative joint disease is identified with joint space narrowing and cartilage loss. There is no evidence of AVN. There is abnormal signal intensity within the superior anterior labrum without linear fluid-filled defect, favor degenerative. Signal intensity within the muscular structure is within normal limits. Joint effusion is identified. Remaining soft tissues are unremarkable. IMPRESSION: Bone marrow edema within the subchondral femoral head, likely related to degenerative joint disease given the joint space narrowing and cartilage loss, osteomyelitis is felt unlikely. Recommend radiographic and potentially MRI follow-up if indicated. Degenerative changes without discrete labral tear. Reviewed, Interpreted and Dictated by Camelia Villalba MD Transcribed by Wen Guzmán Authenticated and [facility]
--- OUTSIDE RECORDS SUMMARY | 2025-08-10 07:33 | XMS_ITS | Clinical Summary ---
Author Organization [facility] Address [address] [place] [address] Phone Care Team Providers Care Sulfuric Acid Plant Operator Name Role Phone Nuzhat GARCIA, Gio Barnes Unavailable [phone] Vera GARCIA, Steven Collazo Unavailable [phone] Reason for Referral Date Encounter Description Provider Reason for Referral 07/09/22 Follow Up Gio Christie Referral To Physician Reason for Visit and Chief Complaint The Chief Complaint is: left rubia pain Problems Includes: Problems addressed during this encounter and other active Problems All Visits Onset Date Resolved Date Provider Condition S tatus Joint Pain Hip Left 11/21/2020 Taz Noland MD Active Last Documented On 1 2:39PM ; [facility] Joint Pain Left Knee 11/05/2020 Gio Noland MD Active Last Documented On 1 8:06AM ; [facility] Joint Pain Right Knee 01/05/2020 Gio Noland MD Active Last Documented On 0 9:26AM ; [facility] Plan of Treatment NON-SURGICAL PLAN: SMOKING CESSATION; DISCUSSED WITH PATIENT SMOKING CAUSES DELAYED HEALING, TISSUE BREAKDOWN, AND OTHER ISSUES THAT CAN CONTRIBUTE TO HER DELAYED HEALING. CONTINUE PHYSICAL THERAPY; FOCUS ON STRENGTHENING FOLLOW UP: [address] Mantilla; LEFT HIP XOA - Last Documented On 07/13/2022 12:51PM ; [facility] Pending Tests Order Diagnosis Results Due Ordering P rovider Radiology - MRI MRI Hip 12/05/20 Gio Noland MD Last Documented On 1 9:57AM ; [facility] Radiology - MRI MRI L Knee 12/05/20 Gio Noland MD Last Documented On 1 9:57AM ; [facility] Denehy Labs - ESR/CRP ESR/CRP 10/30/21 [facility] delores Noland MD Last Documented On 2 9:27AM ; [facility] Radiology - Bone Scan Total Body 11/13/21 Chr delores Noland MD Last Documented On 2 9:27AM ; [facility] Future Appointments Date Time Location Provi kalani Follow Up 08/29/2025 9:30AM [facility] Gio Noland MD Last Documented On 5 11:41AM ; [facility] Instructions to patient Lose weight Last Documented On 2 9:39AM ; [facility] Assessments Includes: Assessments from this encounter Findings 18 MONTHS S/P LEFT RUBIA SHORTENING WITH CONVERSION TO CONSTRAINED LINER WITH PERSISTENT BUT LESS HIP IRRITABILITY COMPARED TO 6 MONTHS AGO. WALKING BETTER BUT STILL SMOKING. - Last Documented On 07/13/2022 12:51PM ; [facility] Instructions Includes: Instructions from this encounter Instructions to patient Lose weight Last Documented On 2 9:39AM ; [facility] Medical Equipment - Implanted Devices Includes: Current Devices No Medical Equipment Recorded Medications Includes: Medications discussed during this encounter and other current Medications Discontinued / Stopped on this date Jah Jimnéez Md on 11/20/2020 Horizant 600 MG Oral Tablet Extended Release Provider: Jah Jiménez Md Diagnosis: Last Documented On 2 9:39AM By Isa Lora [facility] oxyCODONE-Acetaminophen 5-32 5 MG Oral Tablet Provider: Jah Jiménez Md Diagnosis: Last Documented On 2 9:39AM By Isa Lora [facility] Current Medications (continue as prescribed) oxyCODONE-Acetaminophen 5-32 5 MG Oral Tablet 06/16/2022 Provider: Jah Jiménez Md Diagnosis: Last Documented On 2 9:39AM By Isa Lora [facility] Gralise 600 MG Oral Tablet 06/11/2022 Provider: Tessa Jiménez Md Diagnosis: Last Documented On 2 9:39AM By Isa Fu ; [facility] Past Medications on file Diclofenac Sodium 75 MG Oral Tablet Delayed Release 07/09/2022 - 08/08/2022 Provider: Jah kamara Md Diagnosis: Last Documented On 2 9:39AM By Isa Fu ; [facility] Ibuprofen 600 MG Oral Tablet 04/24/2021 - 05/24/2021 Provider: Gio pompa MD Diagnosis: twice a day Last Documented On 1 10:37AM By Aby Lr ; [facility] Meloxicam 15 MG Oral Tablet 01/28/2021 - 02/11/2021 Provider: Gio pompa MD Diagnosis: once a day DO NOT FILL UNTIL 01-29-2021 Last Documented On 1 8:35AM By Bernard Noland ; [facility] Colace 100 MG Oral Capsule 01/28/2021 - 04/28/2021 Provider: Gio pompa MD Diagnosis: 1-2 tabs daily DO NOT FILL UNTIL 01-29-2021 Last Documented On 1 8:35AM By Bernard Noland ; [facility] Cefadroxil 500 MG Oral Capsule 01/28/2021 - 01/31/2021 Provider: Gio pompa MD Diagnosis: twice a day DO NOT FILL UNTIL 01-29-2021 Last Documented On 1 8:34AM By Bernard Noland ; [facility] Acetaminophen 500 MG Oral Tablet 01/28/2021 - 02/27/2021 Provider: Gio Noland MD Diagnosis: 2 three times a day DO NOT FILL UNTIL Last Documented On 1 8:34AM By Bernard Noland ; [facility] Ondansetron HCl 4 MG Oral Tablet 01/28/2021 - 02/02/2021 Provider: Gio Noland MD Diagnosis: [id number] DO NOT FILL UNTIL 01-29-2021 Last Documented On 1 8:36AM By Bernard Noland ; [facility] oxyCODONE HCl 5 MG Oral Tablet 01/28/2021 - 02/02/2021 Provider: Gio pompa MD Diagnosis: 1-2 po q 4-6h DO NOT FILL UNTIL 01-29-2021 Last Documented On 1 8:47AM By Bernard Noland ; [facility] Neurontin 300 MG Oral Capsule 01/28/2021 - 04/28/2021 Provider: Gio pompa MD Diagnosis: 1 every bedtime DO NOT FILL UNTIL 01-29-2021 Last Documented On 1 8:47AM By Bernard Noland ; [facility] Dilaudid 2 MG Oral Tablet 04/15/2020 - 04/17/2020 Provider: Gio pompa MD Diagnosis: 1-2 po q6h prn pain (RESCUE PAIN) DO NOT FILL UNTIL SURGERY DATE 04/19/2020 Last Documented On 0 12:41PM By [employer] ; [facility] Neurontin 300 MG Oral Capsule 04/15/2020 - 07/14/2020 Provider: Gio pompa MD Diagnosis: 1 every bedtime DO NOT FERNANDA L UNTIL SURGERY DATE 04/19/2020 Last Documented On 0 12:41PM By [employer] ; [facility] traMADol HCl 50 MG Oral Tablet 04/15/2020 - 04/20/2020 Provider: Gio pompa MD Diagnosis: 1-2 po q6h prn pain DO NOT FILL UNTIL SURGERY DATE 04/19/2020 Last Documented On 0 12:41PM By [employer] ; [facility] oxyCODONE HCl 5 MG Oral Tablet 04/15/2020 - 04/20/2020 Provider: Gio pompa MD Diagnosis: 1-2 po q6h prn pain DO NOT FILL UNTIL SURGERY DATE 04/19/2020 Last Documented On 0 12:40PM By [employer] ; [facility] Zofran 4 MG Oral Tablet 04/15/2020 - 04/20/2020 Provid er: Gio Noland MD Diagnosis: [id number] DO NOT FILL UNTIL SURGERY DATE 04/19/2020 Last Documented On 0 12:59PM By [employer] ; [facility] Keflex 500 MG Oral Capsule 04/15/2020 - 04/18/2020 Provider: Gio pompa MD Diagnosis: 1 every 6 hours DO NOT FERNANDA L UNTIL SURGERY DATE 04/19/2020 Last Documented On 0 12:59PM By [employer] ; [facility] Mobic 15 MG Oral Tablet 04/15/2020 - 05/15/2020 Provid er: Gio Noland MD Diagnosis: once a day DO NOT FILL UNT [place] SURGERY DATE 04/19/2020 Last Documented On 0 12:59PM By [employer] ; [facility] Colace 100 MG Oral Capsule 04/15/2020 - 07/14/2020 Provider: Gio pompa MD Diagnosis: 1-2 tabs daily DO NOT FILL UNTIL SURGERY DATE 04/19/2020 Last Documented On 0 12:43PM By [employer] ; [facility] Acetaminophen 500 MG Oral Tablet 04/15/2020 - 05/15/2020 Provider: Gio Noland MD Diagnosis: 2 three times a day DO NOT FILL UNTIL SURGERY DATE 04/19/2020 Last Documented On 0 12:43PM By [employer] ; [facility] Medications Administered Includes: Administered Medications from this encounter No Administered Medications Recorded Vital Signs Includes: Vital Signs from this encounter Vital Name 07/09/2022 09:40A Blood Pressure Sitting (mmHg) 155/97 Pulse Rate-Sitting (bpm) 73 Height (in) 63 Weight (lb) 200 Body Mass Index (kg/m2) 35.4 Body Surface Area (m2) 1.9 Note: sjs Last Documented: On 07/09/2022 9:41AM ; [facility] Results Includes: Results discussed during this encounter No Results Recorded For Specified Dates History of Present Illness Includes: History of Present Illness from this encounter SUKHDEEP Hill is a 61 year old female. - Allergy list reviewed - Problem list reviewed - Medication list reviewed Social History Description Last Updated Tobacco non-user 07/09/2022 Last Documented On 2 12:51PM ; [facility] Smoker 04/24/2021 Last Documented On 2 9:39AM ; [facility] Yes, current smoker. 01/16/2021 Last Documented On 2 9:39AM ; [facility] Non-smoker 07/11/2020 Last Documented On 2 9:39AM ; [facility] No tobacco use 01/05/2020 Last Documented On 2 9:39AM ; [facility] Smoking status : Never smoker 01/05/2020 Last Documented On 2 9:39AM ; [facility] Caffeine use 01/05/2020 Last Documented On 2 9:39AM ; [facility] Current smoker 01/05/2020 Last Documented On 2 9:39AM ; [facility] Exercising regularly 01/05/2020 Last Documented On 2 9:39AM ; [facility] No recent change in diet 01/05/2020 Last Documented On 2 9:39AM ; [facility] Not using alcohol 01/05/2020 Last Documented On 2 9:39AM ; [facility] Not using drugs 01/05/2020 Last Documented On 2 9:39AM ; [facility] Procedures and Surgical History Includes: Procedures from this encounter Procedures Code Diagnosis Performing Provider Service L ocation Service Date use of tobacco assessment performed 1000F Last Documented On 2 9:42AM ; [facility] follow-up visit in one month Last Documented On 2 9:42AM ; [facility] referral to physician Last Documented On 2 9:42AM ; [facility] Surgical History Last Updated History of hysterectomy 01/05/2020 Last Documented On 2 9:39AM ; [facility] History of total knee arthroplasty 01/04 Last Documented On 2 9:39AM ; [facility] Medical History Includes: Medical History addressed during this encounter Description Last Updated Arthritis 01/16/2021 Last Documented On 2 9:39AM ; [facility] History of Blood Transfusion 01/16/2021 Last Documented On 2 9:39AM ; [facility] History of Cancer 01/16/2021 Last Documented On 2 9:39AM ; [facility] History of osteoporosis 01/16/2021 Last Documented On 2 9:39AM ; [facility] Past Surgical History: tonsils, cataracs 01/16/2021 Last Documented On 2 9:39AM ; [facility] Recent immunization for flu 01/16/2021 Last Documented On 2 9:39AM ; [facility] Total hip replacement 01/16/2021 Last Documented On 2 9:39AM ; [facility] No recent immunization for pneumococcal pneumonia 11/05/2020 Last Documented On 2 9:39AM ; [facility] blood transfusion, cataracs 01/05/2020 Last Documented On 2 9:39AM ; [facility] A previous fracture 01/05/2020 Last Documented On 2 9:39AM ; [facility] Arthritic joint problems 01/05/2020 Last Documented On 2 9:39AM ; [facility] Family History Includes: Family History addressed during this encounter Description Last Updated Diabetes mellitus 01/16/2021 Last Documented On 2 9:39AM ; [facility] Family history of cancer 01/05/2020 Last Documented On 2 9:39AM ; [facility] Family history of diabetes mellitus 12/23 Last Documented On 2 9:39AM ; [facility] Family history of hypertension 0 Last Documented On 2 9:39AM ; [facility] Review of Systems Includes: Review of Systems from this encounter Systemic: Not feeling tired, no recent weight loss, and no recent weight gain. No edema. Head: No headache and no sinus pain. Eyes: No vision problems and no glaucomatous visual field defect. Cataracts. No Glasses/Contacts and no Glaucoma. Otolaryngeal: No hearing loss and no tinnitus. No nasal symptoms. Cardiovascular: No chest pain or discomfort, no palpitations, no Hypertension, and no High Cholesterol. Pulmonary: No daytime asthma symptoms, no cough, and no chronic cough. No wheezing. Gastrointestinal: No heartburn and no abdominal pain. No Indigestion, no Acid Reflux, no Peptic Ulcer, no GI Stomach Bleed, and no Ulcers. Endocrine: No hot flashes, no muscle weakness, no Diabetes, no Hypothyroid, and no Hyperthyroid. Hematologic: No easy bleeding, no tendency for easy bruising, and no Anemia. Musculoskeletal: No Arthritis. Lower back pain. No soft tissue swelling. Pain localized to one or more joints. Neurological: No dizziness, no convulsions, and no numbness. Psychological: No anxiety, no emotional lability, and no depression. Insomnia. Not crying for no reason. Skin: No dry skin. No Ulcers, no Scars, no rash, and no ulcers. Allergic and Immunologic: No complaint of seasonal allergic reaction. reviewed on 07/09/2021 Mental Status Includes: Mental Status from this encounter Description No anxiety Functional Status Includes: Functional Status from this encounter No Functional Status Recorded Physical Exam Includes: Physical Exam from this encounter Allergies Includes: Active Allergies Substance Type Reaction Onset Date Resolved Date Statu s Ultram Allergy 11/05/2020 Active Last Documented On 3 9:24AM ; [facility] Encounters Encounter Provider Location Date Check-In Time Check-Out Time Diagnosis Follow Up Gio Noland MD [facility] 07/09/20 22 8:54AM 10:17AM Insurance Includes: Active Insurance Policies Plan Name Member ID Group # Subscriber Relationship Effect yaz Dates 1 - Medicare Part B [facility] [id number] Jenni May Self 04/24/2023 - Unknown 2 - [facility] [id number] Jenni May Self 10/25/2021 - Unknown Clinical Notes Includes: Clinical Notes from this encounter No Clinical Notes Recorded
--- OUTSIDE RECORDS SUMMARY | 2025-08-10 07:33 | XMS_ITS | Clinical Summary ---
Author Organization [employer] ([place], [place], [place], [place]) Address [address] [place] [address] Care Team Providers Care [employer] Applier Name Role Phone Unavailable Primary Care Provider Unavailabl e Social History Tobacco Use Types Packs/Day Years Used Date Smoking Tobacco: Never Assessed Comments Unknown Sex and Gender Information Value Date Recorded Sex Assigned at Female 04/21/2022 8:48 PM CDT Legal Sex Female 8:48 PM CDT Gender Identity Female 04/21/2022 8:48 PM CDT Sexual Orientation Not on file Plan of Treatment Not on file
--- OUTSIDE RECORDS SUMMARY | 2025-08-10 07:33 | XMS_ITS | Clinical Summary ---
Author Organization [facility] , [facility] Address [address] [place] [address] Phone Care Team Providers Care Supervisor Cooler Service Name Role Phone Nuzhat GARCIA, Gio Barnes Unavailable [phone] Vera GARCIA, Steven Collazo Unavailable [phone] Reason for Referral Date Encounter Description Provider Reason for Referral 12/09/21 SECOND OPINION Marshall Acosta MD Re ferral To Physician - see pcp for bp Reason for Visit and Chief Complaint The Chief Complaint is: Left hip pain Problems Includes: Problems addressed during this encounter and other active Problems All Visits Onset Date Resolved Date Provider Condition S tatus Joint Pain Hip Left 11/21/2020 Taz Noland MD Active Last Documented On 1 2:39PM ; [facility] Joint Pain Left Knee 11/05/2020 Gio Noland MD Active Last Documented On 1 8:06AM ; [facility] Joint Pain Right Knee 01/05/2020 Gio Noland MD Active Last Documented On 0 9:26AM ; [facility], [facility] Plan of Treatment Future Appointments Date Time Location Provi kalani Follow Up 08/29/2025 9:30AM [facility] Gio Noland MD Last Documented On 5 11:41AM ; [facility], [facility] Instructions to patient Intervention and counseling on cessation of tobacco use Last Documented On 2 8:12AM ; [facility], [facility] Lose weight Last Documented On 2 8:12AM ; [facility], [facility] Assessments Includes: Assessments from this encounter Findings 60-year-old female with painful left total hip following revision of a [id number] hip. - Last Documented On 12/09/2021 9:51AM ; [facility] At this point I do not see anything that would require repeat surgery in this complex patient - Last Documented On 12/09/2021 9:51AM ; [facility] Her aspiration was negative for infection her bone scan was negative as well potentially she has got some inflamed synovium related to her residual metal debris that could be present in the lining of the hip I do not think any surgery will make this better at this point her hip is stable with noninfected and the patient has some 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 [id number] disease that she had prior recommended continued therapy exercises to strengthen and hopefully over time 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 and decrease some of the inflammation around her hip - Last Documented On 12/09/2021 9:51AM ; [facility] Instructions Includes: Instructions from this encounter Instructions to patient Intervention and counseling on cessation of tobacco use Last Documented On 2 8:12AM ; [facility] Lose weight Last Documented On 2 8:12AM ; [facility] Medical Equipment - Implanted Devices Includes: Current Devices No Medical Equipment Recorded Medications Includes: Medications discussed during this encounter and other current Medications Current Medications (continue as prescribed) oxyCODONE-Acetaminophen 5-32 5 MG Oral Tablet 06/16/2022 Provider: Jah Jiménez Md Diagnosis: Last Documented On 2 9:39AM By [facility] Gralise 600 MG Oral Tablet 06/11/2022 Provider: Tessa Jiménez Md Diagnosis: Last Documented On 2 9:39AM By [facility] Past Medications on file Diclofenac Sodium 75 MG Oral Tablet Delayed Release 07/09/2022 - 08/08/2022 Provider: Jah kamara Md Diagnosis: Last Documented On 2 9:39AM By [facility] Ibuprofen 600 MG Oral Tablet 04/24/2021 - 05/24/2021 Provider: Gio pompa MD Diagnosis: twice a day Last Documented On 1 10:37AM By Aby Lr ; [facility] Meloxicam 15 MG Oral Tablet 01/28/2021 - 02/11/2021 Provider: Gio pompa MD Diagnosis: once a day DO NOT FILL UNTIL 01-29-2021 Last Documented On 1 8:35AM By Bernard Noland ; [facility] Colace 100 MG Oral Capsule 01/28/2021 - 04/28/2021 Provider: Gio pompa MD Diagnosis: 1-2 tabs daily DO NOT FILL UNTIL 01-29-2021 Last Documented On 1 8:35AM By Bernard Noland ; [facility] Cefadroxil 500 MG Oral Capsule 01/28/2021 - 01/31/2021 Provider: Gio pompa MD Diagnosis: twice a day DO NOT FILL UNTIL 01-29-2021 Last Documented On 1 8:34AM By Bernard Noland ; [facility] Acetaminophen 500 MG Oral Tablet 01/28/2021 - 02/27/2021 Provider: Gio Noland MD Diagnosis: 2 three times a day DO NOT FILL UNTIL Last Documented On 1 8:34AM By Bernard Noland ; [facility] Ondansetron HCl 4 MG Oral Tablet 01/28/2021 - 02/02/2021 Provider: Gio Noland MD Diagnosis: [id number] DO NOT FILL UNTIL 01-29-2021 Last Documented On 1 8:36AM By Bernard Noland ; [facility] oxyCODONE HCl 5 MG Oral Tablet 01/28/2021 - 02/02/2021 Provider: Gio pompa MD Diagnosis: 1-2 po q 4-6h DO NOT FILL UNTIL 01-29-2021 Last Documented On 1 8:47AM By Bernard Noland ; [facility] Neurontin 300 MG Oral Capsule 01/28/2021 - 04/28/2021 Provider: Gio pompa MD Diagnosis: 1 every bedtime DO NOT FILL UNTIL 01-29-2021 Last Documented On 1 8:47AM By Bernard Noland ; [facility] Dilaudid 2 MG Oral Tablet 04/15/2020 - 04/17/2020 Provider: Gio pompa MD Diagnosis: 1-2 po q6h prn pain (RESCUE PAIN) DO NOT FILL UNTIL SURGERY DATE 04/19/2020 Last Documented On 0 12:41PM By [employer] ; [facility] Neurontin 300 MG Oral Capsule 04/15/2020 - 07/14/2020 Provider: Gio pompa MD Diagnosis: 1 every bedtime DO NOT FERNANDA L UNTIL SURGERY DATE 04/19/2020 Last Documented On 0 12:41PM By [employer] ; [facility] traMADol HCl 50 MG Oral Tablet 04/15/2020 - 04/20/2020 Provider: Gio pompa MD Diagnosis: 1-2 po q6h prn pain DO NOT FILL UNTIL SURGERY DATE 04/19/2020 Last Documented On 0 12:41PM By [employer] ; [facility] oxyCODONE HCl 5 MG Oral Tablet 04/15/2020 - 04/20/2020 Provider: Gio pompa MD Diagnosis: 1-2 po q6h prn pain DO NOT FILL UNTIL SURGERY DATE 04/19/2020 Last Documented On 0 12:40PM By [employer] ; [facility] Zofran 4 MG Oral Tablet 04/15/2020 - 04/20/2020 Provid er: Gio Noland MD Diagnosis: [id number] DO NOT FILL UNTIL SURGERY DATE 04/19/2020 Last Documented On 0 12:59PM By [employer] ; [facility] Keflex 500 MG Oral Capsule 04/15/2020 - 04/18/2020 Provider: Gio pompa MD Diagnosis: 1 every 6 hours DO NOT FI LL UNTIL SURGERY DATE 04/19/2020 Last Documented On 0 12:59PM By [employer] ; [facility] Mobic 15 MG Oral Tablet 04/15/2020 - 05/15/2020 Provid er: Gio Noland MD Diagnosis: once a day DO NOT FILL UNT [place] SURGERY DATE 04/19/2020 Last Documented On 0 12:59PM By [employer] ; [facility], [facility] Colace 100 MG Oral Capsule 04/15/2020 - 07/14/2020 Provider: Gio pompa MD Diagnosis: 1-2 tabs daily DO NOT FILL UNTIL SURGERY DATE 04/19/2020 Last Documented On 0 12:43PM By [employer] ; [facility], [facility] Acetaminophen 500 MG Oral Tablet 04/15/2020 - 05/15/2020 Provider: Gio Noland MD Diagnosis: 2 three times a day DO NOT FILL UNTIL SURGERY DATE 04/19/2020 Last Documented On 0 12:43PM By [employer] ; [facility], [facility] Medications Administered Includes: Administered Medications from this encounter No Administered Medications Recorded Vital Signs Includes: Vital Signs from this encounter Vital Name 12/09/2021 08:11A Blood Pressure Sitting (mmHg) 125/92 Pulse Rate-Sitting (bpm) 82 Height (in) 63 Weight (lb) 195 Body Mass Index (kg/m2) 34.5 Body Surface Area (m2) 1.9 Note: rw Last Documented: On 12/09/2021 8:11AM ; [facility], [facility] Results Includes: Results discussed during this encounter No Results Recorded For Specified Dates History of Present Illness Includes: History of Present Illness from this encounter SUKHDEEP Hill is a 60 year old female. - Allergy list reviewed - Problem list reviewed - Medication reconciliation performed - Medication list reviewed with patient 60-year-old female with complex history regarding her left total hip sent to me for second opinion by 1 of the other providers in our group whose office notes and imaging studies I did review prior to today's visit patient originally had a left total hip performed by Dr. 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 Postoperatively from this most recent surgery she has struggled with continued pain pain is somewhat throughout the leg from the lateral side is the worse but some pain radiating down the front of her leg and into her groin and occasional numbness and occasional pain that radiates all the way down to her foot and Denies any postoperative wound complications or drainage she is on narcotics and is a active smoker. She had a workup prior to seeing me including a bone scan and aspiration as well as inflammatory markers checked that all appear negative for infection. She walks without assistive device but reports chronic pain in the leg Social History Description Last Updated Smoker 04/24/2021 Last Documented On 2 8:11AM ; [facility], [facility] Yes, current smoker. 01/16/2021 Last Documented On 2 8:11AM ; [facility], [facility] No tobacco use 01/05/2020 Last Documented On 2 8:11AM ; [facility], [facility] Smoking status : Never smoker 01/05/2020 Last Documented On 2 8:11AM ; [facility], [facility] Caffeine use 01/05/2020 Last Documented On 2 8:11AM ; [facility], [facility] Current smoker 01/05/2020 Last Documented On 2 8:11AM ; [facility], [facility] Exercising regularly 01/05/2020 Last Documented On 2 8:11AM ; [facility], [facility] No recent change in diet 01/05/2020 Last Documented On 2 8:11AM ; [facility], [facility] Not using alcohol 01/05/2020 Last Documented On 2 8:11AM ; [facility], [facility] Not using drugs 01/05/2020 Last Documented On 2 8:11AM ; [facility], [facility] Procedures and Surgical History Includes: Procedures from this encounter Procedures Code Diagnosis Performing Provider Service L ocation Service Date intervention and counseling on cessation of tobacco use 4000F Last Documented On 2 8:12AM ; [facility], [facility] use of tobacco assessment performed 1000F Last Documented On 2 8:12AM ; [facility], [facility] referral to physician see pcp for bp Last Documented On 2 8:12AM ; [facility], [facility] Surgical History Last Updated History of hysterectomy 01/05/2020 Last Documented On 2 8:11AM ; [facility] History of total knee arthroplasty 01/04 Last Documented On 2 8:11AM ; [facility], [facility] Medical History Includes: Medical History addressed during this encounter Description Last Updated Arthritis 01/16/2021 Last Documented On 2 8:11AM ; [facility] History of Blood Transfusion 01/16/2021 Last Documented On 2 8:11AM ; [facility] History of Cancer 01/16/2021 Last Documented On 2 8:11AM ; [facility] History of osteoporosis 01/16/2021 Last Documented On 2 8:11AM ; [facility] Hysterectomy 01/16/2021 Last Documented On 2 8:11AM ; [facility] Past Surgical History: tonsils, catarac s 01/16/2021 Last Documented On 2 8:11AM ; [facility], [facility] Recent immunization for flu 01/16/2021 Last Documented On 2 8:11AM ; [facility] Total hip replacement 01/16/2021 Last Documented On 2 8:11AM ; [facility], [facility] No recent immunization for pneumococcal pneumonia 11/05/2020 Last Documented On 2 8:11AM ; [facility], [facility] blood transfusion, cataracs 01/05/2020 Last Documented On 2 8:11AM ; [facility] A previous fracture 01/05/2020 Last Documented On 2 8:11AM ; [facility] Arthritic joint problems 01/05/2020 Last Documented On 2 8:11AM ; [facility] Family History Includes: Family History addressed during this encounter Description Last Updated Diabetes mellitus 01/16/2021 Last Documented On 2 8:11AM ; [facility] Family history of cancer 01/05/2020 Last Documented On 2 8:11AM ; [facility] Family history of diabetes mellitus 12/23 Last Documented On 2 8:11AM ; [facility] Family history of hypertension 0 Last Documented On 2 8:11AM ; [facility] Review of Systems Includes: Review of Systems from this encounter No Review of Systems Recorded Mental Status Includes: Mental Status from this encounter No Mental Status Recorded Functional Status Includes: Functional Status from this encounter No Functional Status Recorded Physical Exam Includes: Physical Exam from this encounter Allergies Includes: Active Allergies Substance Type Reaction Onset Date Resolved Date Statu s Ultram Allergy 11/05/2020 Active Last Documented On 3 9:24AM ; [facility] Encounters Encounter Provider Location Date Check-In Time Check-Out Time Diagnosis SECOND OPINION Marshall Acosta MD [facility] 12/09/19 22 7:49AM 8:42AM Insurance Includes: Active Insurance Policies Plan Name Member ID Group # Subscriber Relationship Effect yaz Dates 1 - Medicare Part B [facility] [id number] Jenni May Self 04/24/2023 - Unknown 2 - [facility] [id number] Jenni February Self 10/25/2021 - Unknown Clinical Notes Includes: Clinical Notes from this encounter No Clinical Notes Recorded
--- OUTSIDE RECORDS SUMMARY | 2025-08-10 07:33 | XMS_ITS ---
Care Plan - [facility], [facility] Created on: August 10, 2025February Jenni : 1960 Sex: Female Author Organization [facility] Address [address] [place] [address] Phone Care Team Providers Care Tabulating Clerk Name Role Phone Nuzhat GARCIA, Gio Barnes Unavailable [phone] Vera GARCIA, Steven Collazo Unavailable [phone]
--- OUTSIDE RECORDS SUMMARY | 2025-08-10 07:33 | XMS_ITS | Referral Summary ---
Author Organization [facility] ([place], [place], [place], [place]) Address [address] [place] [address] Care Team Providers Care Collar Runner Name Role Phone Unavailable Primary Care Provider [...]
--- OUTSIDE RECORDS SUMMARY | 2025-08-10 07:34 | XMS_ITS | Clinical Summary ---
Author Organization [facility] Address [address] [place] [address] Phone Care Team Providers Care Satellite Technician Name Role Phone Nuzhat GARCIA, Gio Barnes Unavailable [phone] Vera GARCIA, Steven Collazo Unavailable [phone] Reason for Referral Date Encounter Description Provider Reason for Referral 08/26/23 Follow Up Gio Christie Referral To Physician Reason for Visit and Chief Complaint The Chief Complaint is: left rubia pain Problems Includes: Problems addressed during this encounter and other active Problems All Visits Onset Date Resolved Date Provider Condition S tatus Joint Pain Hip Left 11/21/2020 Taz Noland MD Active Last Documented On 1 2:39PM ; [facility] Joint Pain Left Knee 11/05/2020 Gio Noland MD Active Last Documented On 1 8:06AM ; [facility] Joint Pain Right Knee 01/05/2020 Gio Noland MD Active Last Documented On 0 9:26AM ; [facility] Plan of Treatment NON-SURGICAL PLAN: SMOKING CESSATION CAN FOR FORMAL PHYSICAL THERAPY FOLLOW UP: 2 YEARS WITH LEFT HIP XOA - Last Documented On 08/27/2023 1:43PM ; [facility] Pending Tests Order Diagnosis Results Due Ordering P rovider Radiology - MRI MRI Hip 12/05/20 Gio Noland MD Last Documented On 1 9:57AM ; [facility] Radiology - MRI MRI L Knee 12/05/20 Gio Noland MD Last Documented On 1 9:57AM ; [facility] Denehy Labs - ESR/CRP ESR/CRP 10/30/21 [facility] delores Noland MD Last Documented On 2 9:27AM ; [facility] Radiology - Bone Scan Total Body 11/13/21 [facility] delores Noland MD Last Documented On 2 9:27AM ; [facility] Future Appointments Date Time Location Provi kalani Follow Up 08/29/2025 9:30AM [facility] Gio Noland MD Last Documented On 5 11:41AM ; [facility] Instructions to patient Lose weight Last Documented On 3 9:24AM ; [facility] Assessments Includes: Assessments from this encounter Findings 2 YEARS S/P CONVERSION FROM RUBIA WITH EXCESSIVE LENGTHENING TO CONSTRAINED LINER. MUSCLE AND FUNCTION CONTINUES TO IMPROVE. COMFORTABLE AND VERY CLOSE TO NORMAL DURING DAY. HAS SIGNIFICANT DISCOMFORT AT NIGHT. CANNOT FLEX HIP TO PUT ON SHOE. - Last Documented On 08/27/2023 1:43PM ; [facility], [facility] Instructions Includes: Instructions from this encounter Instructions to patient Lose weight Last Documented On 3 9:24AM ; [facility] Medical Equipment - Implanted Devices Includes: Current Devices No Medical Equipment Recorded Medications Includes: Medications discussed during this encounter and other current Medications Current Medications (continue as prescribed) oxyCODONE-Acetaminophen 5-32 5 MG Oral Tablet 06/16/2022 Provider: Jah Jiménez Md Diagnosis: Last Documented On 2 9:39AM By Isa Fu ; [facility], [facility] Gralise 600 MG Oral Tablet 06/11/2022 Provider: Tessa Jiménez Md Diagnosis: Last Documented On 2 9:39AM By Isa uF ; [facility], [facility] Past Medications on file Diclofenac Sodium 75 MG Oral Tablet Delayed Release 07/09/2022 - 08/08/2022 Provider: Jah kamara Md Diagnosis: Last Documented On 2 9:39AM By Isa Fu ; [facility], [facility] Ibuprofen 600 MG Oral Tablet 04/24/2021 - 05/24/2021 Provider: Gio pompa MD Diagnosis: twice a day Last Documented On 1 10:37AM By Aby Lr ; [facility] Meloxicam 15 MG Oral Tablet 01/28/2021 - 02/11/2021 Provider: Gio pompa MD Diagnosis: once a day DO NOT FILL UNTIL 01-29-2021 Last Documented On 1 8:35AM By Bernard Noland ; [facility] Colace 100 MG Oral Capsule 01/28/2021 - 04/28/2021 Provider: Gio pompa MD Diagnosis: 1-2 tabs daily DO NOT FILL UNTIL 01-29-2021 Last Documented On 1 8:35AM By Bernard Noland ; [facility] Cefadroxil 500 MG Oral Capsule 01/28/2021 - 01/31/2021 Provider: Gio pompa MD Diagnosis: twice a day DO NOT FILL UNTIL 01-29-2021 Last Documented On 1 8:34AM By Bernard Noland ; [facility] Acetaminophen 500 MG Oral Tablet 01/28/2021 - 02/27/2021 Provider: Gio Noland MD Diagnosis: 2 three times a day DO NOT FILL UNTIL Last Documented On 1 8:34AM By Bernard Noland ; [facility] Ondansetron HCl 4 MG Oral Tablet 01/28/2021 - 02/02/2021 Provider: Gio Noland MD Diagnosis: [id number] DO NOT FILL UNTIL 01-29-2021 Last Documented On 1 8:36AM By Bernard Noland ; [facility] oxyCODONE HCl 5 MG Oral Tablet 01/28/2021 - 02/02/2021 Provider: Gio pompa MD Diagnosis: 1-2 po q 4-6h DO NOT FILL UNTIL 01-29-2021 Last Documented On 1 8:47AM By Bernard Nolnad ; [facility] Neurontin 300 MG Oral Capsule 01/28/2021 - 04/28/2021 Provider: Gio pompa MD Diagnosis: 1 every bedtime DO NOT FILL UNTIL 01-29-2021 Last Documented On 1 8:47AM By Bernard Noland ; [facility] Dilaudid 2 MG Oral Tablet 04/15/2020 - 04/17/2020 Provider: Gio pompa MD Diagnosis: 1-2 po q6h prn pain (RESCUE PAIN) DO NOT FILL UNTIL SURGERY DATE 04/19/2020 Last Documented On 0 12:41PM By KOJI Drinks ; [facility] Neurontin 300 MG Oral Capsule 04/15/2020 - 07/14/2020 Provider: Gio pompa MD Diagnosis: 1 every bedtime DO NOT FERNANDA L UNTIL SURGERY DATE 04/19/2020 Last Documented On 0 12:41PM By KOJI Drinks ; [facility] traMADol HCl 50 MG Oral Tablet 04/15/2020 - 04/20/2020 Provider: Gio pompa MD Diagnosis: 1-2 po q6h prn pain DO NOT FILL UNTIL SURGERY DATE 04/19/2020 Last Documented On 0 12:41PM By KOJI Drinks ; [facility] oxyCODONE HCl 5 MG Oral Tablet 04/15/2020 - 04/20/2020 Provider: Gio pompa MD Diagnosis: 1-2 po q6h prn pain DO NOT FILL UNTIL SURGERY DATE 04/19/2020 Last Documented On 0 12:40PM By KOJI Drinks ; [facility] Zofran 4 MG Oral Tablet 04/15/2020 - 04/20/2020 Provid er: Gio Noland MD Diagnosis: [id number] DO NOT FILL UNTIL SURGERY DATE 04/19/2020 Last Documented On 0 12:59PM By KOJI Drinks ; [facility] Keflex 500 MG Oral Capsule 04/15/2020 - 04/18/2020 Provider: Gio pmopa MD Diagnosis: 1 every 6 hours DO NOT FERNANDA L UNTIL SURGERY DATE 04/19/2020 Last Documented On 0 12:59PM By KOJI Drinks ; [facility] Mobic 15 MG Oral Tablet 04/15/2020 - 05/15/2020 Provid er: Gio Noland MD Diagnosis: once a day DO NOT FILL UNT [place] SURGERY DATE 04/19/2020 Last Documented On 0 12:59PM By KOJI Drinks ; [facility] Colace 100 MG Oral Capsule 04/15/2020 - 07/14/2020 Provider: Gio pompa MD Diagnosis: 1-2 tabs daily DO NOT FILL UNTIL SURGERY DATE 04/19/2020 Last Documented On 0 12:43PM By KOJI Drinks ; [facility] Acetaminophen 500 MG Oral Tablet 04/15/2020 - 05/15/2020 Provider: Gio Noland MD Diagnosis: 2 three times a day DO NOT FILL UNTIL SURGERY DATE 04/19/2020 Last Documented On 0 12:43PM By KOJI Drinks ; [facility] Medications Administered Includes: Administered Medications from this encounter No Administered Medications Recorded Vital Signs Includes: Vital Signs from this encounter Vital Name 08/26/2023 09:48A Height (in) 63 Weight (lb) 189.6 Body Mass Index 33.6 Body Surface Area 1.9 Note: SV Last Documented: On 08/26/2023 9:49AM ; [facility] Results Includes: Results discussed during this encounter No Results Recorded For Specified Dates History of Present Illness Includes: History of Present Illness from this encounter SUKHDEEP Hill is a 62 year old female. - Allergy list reviewed - Problem list reviewed - Medication list reviewed Social History Description Last Updated Tobacco non-user 07/09/2022 Last Documented On 3 9:24AM ; [facility] Smoker 04/24/2021 Last Documented On 3 9:24AM ; [facility] Yes, current smoker. 01/16/2021 Last Documented On 3 9:24AM ; [facility] Non-smoker 07/11/2020 Last Documented On 3 9:24AM ; [facility] No tobacco use 01/05/2020 Last Documented On 3 9:24AM ; [facility] Smoking status : Never smoker 01/05/2020 Last Documented On 3 9:24AM ; [facility] Caffeine use 01/05/2020 Last Documented On 3 9:24AM ; [facility] Current smoker 01/05/2020 Last Documented On 3 9:24AM ; [facility] Exercising regularly 01/05/2020 Last Documented On 3 9:24AM ; [facility] No recent change in diet 01/05/2020 Last Documented On 3 9:24AM ; [facility] Not using alcohol 01/05/2020 Last Documented On 3 9:24AM ; [facility] Not using drugs 01/05/2020 Last Documented On 3 9:24AM ; [facility] Procedures and Surgical History Includes: Procedures from this encounter Procedures Code Diagnosis Performing Provider Service L ocation Service Date use of tobacco assessment performed 1000F Last Documented On 3 9:24AM ; [facility] follow-up visit in one month Last Documented On 3 9:24AM ; [facility] referral to physician Last Documented On 3 9:24AM ; [facility] Surgical History Last Updated History of hysterectomy 01/05/2020 Last Documented On 3 9:24AM ; [facility] History of total knee arthroplasty 01/04 Last Documented On 3 9:24AM ; [facility] Medical History Includes: Medical History addressed during this encounter Description Last Updated Arthritis 01/16/2021 Last Documented On 3 9:24AM ; [facility] History of Blood Transfusion 01/16/2021 Last Documented On 3 9:24AM ; [facility] History of Cancer 01/16/2021 Last Documented On 3 9:24AM ; [facility] History of osteoporosis 01/16/2021 Last Documented On 3 9:24AM ; [facility] Hysterectomy 01/16/2021 Last Documented On 3 9:24AM ; [facility], [facility] Past Surgical History: tonsils, cataracs 01/16/2021 Last Documented On 3 9:24AM ; [facility] Recent immunization for flu 01/16/2021 Last Documented On 3 9:24AM ; [facility] Total hip replacement 01/16/2021 Last Documented On 3 9:24AM ; [facility] No recent immunization for pneumococcal pneumonia 11/05/2020 Last Documented On 3 9:24AM ; [facility] blood transfusion, cataracs 01/05/2020 Last Documented On 3 9:24AM ; [facility] A previous fracture 01/05/2020 Last Documented On 3 9:24AM ; [facility] Arthritic joint problems 01/05/2020 Last Documented On 3 9:24AM ; [facility] Family History Includes: Family History addressed during this encounter Description Last Updated Diabetes mellitus 01/16/2021 Last Documented On 3 9:24AM ; [facility] Family history of cancer 01/05/2020 Last Documented On 3 9:24AM ; [facility] Family history of diabetes mellitus 12/23 Last Documented On 3 9:24AM ; [facility] Family history of hypertension 0 Last Documented On 3 9:24AM ; [facility] Review of Systems Includes: Review [...] Immunologic: No complaint of seasonal allergic reaction. Mental Status Includes: Mental Status from this encounter Description No anxiety Functional Status Includes: Functional Status from this encounter No Functional Status Recorded Physical Exam Includes: Physical Exam from this encounter Allergies Includes: Active Allergies Substance Type Reaction Onset Date Resolved Date Statu s Ultram Allergy 11/05/2020 Active Last Documented On 3 9:24AM ; [facility] Encounters Encounter Provider Location Date Check-In Time Check-Out Time Diagnosis Follow Up Gio Noland MD [facility] 08/26/20 23 9:19AM 10:26AM Insurance Includes: Active Insurance Policies Plan Name Member ID Group # Subscriber Relationship Effect yaz Dates 1 - Medicare Part B [facility] [id number] Jenni February Self 04/24/2023 - Unknown 2 - [facility] [id number] Jenni February Self 10/25/2021 - Unknown Clinical Notes Includes: Clinical Notes from this encounter * Progress note Date Encounter Last Documented by 08/26/2023 Follow Up Last documented on 08/27/2023; 1:43 PM, Gio Noland MD; [facility] Active Problems & Conditions - Joint Pain in the Left Hip - Joint Pain in the Left Knee - Joint Pain in the Right Knee Chief Complaint The Chief Complaint is: Left rubia pain. Referred Here Referred by. History of Present Illness Jenni Hill is a 62 year old female. - Allergy list reviewed - Problem list reviewed - Medication list reviewed Current Medication - Gralise 600 MG Oral Tablet 30 days, 0 refills - oxyCODONE-Acetaminophen 5-325 MG Oral Tablet 30 days, 0 refills Past Medical/Surgical History Reported: Medical: Arthritic joint problems and a fracture. Immunization History: Recent immunization for flu. No recent immunization for pneumococcal pneumonia. Diagnoses: History of Blood Transfusion History of Cancer. Osteoporosis. Arthritis Blood transfusion, cataracs. Surgical: - Past Surgical History: tonsils, cataracs - Hysterectomy - Hysterectomy - Total hip replacement - Total knee arthroplasty Social History Yes, current smoker. Current diet: No recent change in diet. Caffeine use: Caffeine use. Tobacco use: No tobacco use. Current smoker, tobacco non-user, smoker, and non-smoker. Smoking status: Never smoker. Alcohol: Not using alcohol. Drug Use: Not using drugs. Habits: Exercising regularly. Allergies - Ultram Family History Cancer Diabetes mellitus Systemic hypertension Diabetes mellitus Review Of Systems Systemic: Not feeling tired, no recent weight [...] Immunologic: No complaint of seasonal allergic reaction. Physical Findings - Vitals taken 08/26/2023 09:48 am SV Height 63 in Weight 189 lbs 9.6 oz Body Mass Index 33.6 kg/m2 Body Surface Area 1.9 m2 Standard Measurements: - Patient was overweight JACOBO. PATIENT ORIENTED WITH NORMAL APPEARANCE GAIT: NORMAL TA/GAS: 5/5 DP PULSES: PALPABLE LEG LENGTHS: EQUAL LEFT HIP: ROM: FLEXION: 100 DEGREES IR: 5 DEGREES ER: 10 DEGREES SLR TO 30 INCHES ABDUCTORS: 4/5 WELL HEALED INCISION Tests LEFT HIP XR (2 VIEWS): STABLE CONSTRAINED SOCKET Assessment 2 YEARS S/P CONVERSION FROM RUBIA WITH EXCESSIVE LENGTHENING TO CONSTRAINED LINER. MUSCLE AND FUNCTION CONTINUES TO IMPROVE. COMFORTABLE AND VERY CLOSE TO NORMAL DURING DAY. HAS SIGNIFICANT DISCOMFORT AT NIGHT. CANNOT FLEX HIP TO PUT ON SHOE. Therapy - Follow-up visit in one month. - Referral to physician. Counseling/Education - Lose weight Plan NON-SURGICAL PLAN: SMOKING CESSATION CAN FOR FORMAL PHYSICAL THERAPY FOLLOW UP: 2 YEARS WITH LEFT HIP XOA Notes This dictation was done with voice recognition software and may contain errors and omissions. Practice Management Use of tobacco assessment performed. Care Team - Steven Gamez MD - [employer]
--- OUTSIDE RECORDS SUMMARY | 2025-08-10 07:34 | XMS_ITS | Clinical Summary ---
Author Organization [facility] Address [address] [place] [address] Phone Care Team Providers Care Silk Trimmer Name Role Phone Nuzhat GARCIA, Gio Barnes Unavailable [phone] Vera GARCIA, Steven Collazo Unavailable [phone] Reason for Visit and Chief Complaint The Chief Complaint is: left rubia pain Problems Includes: Problems addressed during this encounter and other active Problems All Visits Onset Date Resolved Date Provider Condition S tatus Joint Pain Hip Left 11/21/2020 Taz Noland MD Active Last Documented On 1 2:39PM ; [facility] Joint Pain Left Knee 11/05/2020 Gio Noland MD Active Last Documented On 1 8:06AM ; [facility] Joint Pain Right Knee 01/05/2020 Gio Noland MD Active Last Documented On 0 9:26AM ; [facility] Plan of Treatment Left hip aspiration: All questions were answered to the patient's satisfaction. The patient was placed supine on exam table, fluoroscopic imaging used to plan appropriate needle placement. The area was then marked, ChloraPrep was then used to sterilize the skin. Under ethyl chloride spray topical anesthesia, a 22-gauge spinal needle was then guided to the intra-articular space under fluoroscopy. Once needle appropriately placed, a 60 cc syringe was then attached and used to aspirate 3 cc of rust colored fluid. Then the syringe was removed and Marcaine and lidocaine mixed was injected up to 10 cc with good flow. Patient tolerated procedure very well. Hemostasis obtained with a Band-Aid. - Last Documented On 12/02/2021 4:39PM ; [facility] Future Appointments Date Time Location Provi kalani Follow Up 08/29/2025 9:30AM [facility] Gio Noland MD Last Documented On 5 11:41AM ; [facility] Assessments Includes: Assessments from this encounter Findings Painful left RUBIA - Last Documented On 12/02/2021 4:39PM ; [facility] Medical Equipment - Implanted Devices Includes: Current Devices No Medical Equipment Recorded Medications Includes: Medications discussed during this encounter and other current Medications Current Medications (continue as prescribed) oxyCODONE-Acetaminophen 5-32 5 MG Oral Tablet 06/16/2022 Provider: Jah Jiménez Md Diagnosis: Last Documented On 2 9:39AM By Isa Fu ; [facility] Gralise 600 MG Oral Tablet 06/11/2022 Provider: Tessa Jiménez Md Diagnosis: Last Documented On 2 9:39AM By Isa Fu ; [facility] Past Medications on file Diclofenac Sodium 75 MG Oral Tablet Delayed Release 07/09/2022 - 08/08/2022 Provider: Jah kmaara Md Diagnosis: Last Documented On 2 9:39AM By Isa Fu ; [facility] Ibuprofen 600 MG Oral Tablet 04/24/2021 - 05/24/2021 Provider: Gio pompa MD Diagnosis: twice a day Last Documented On 1 10:37AM By Aby Lr ; [facility] Meloxicam 15 MG Oral Tablet 01/28/2021 - 02/11/2021 Provider: Gio pompa MD Diagnosis: once a day DO NOT FILL UNTIL 01-29-2021 Last Documented On 1 8:35AM By Bernard Noland ; [facility] Colace 100 MG Oral Capsule 01/28/2021 - 04/28/2021 Provider: Gio pompa MD Diagnosis: 1-2 tabs daily DO NOT FILL UNTIL 01-29-2021 Last Documented On 8:35AM By Bernard Noland ; [facility] Cefadroxil 500 MG Oral Capsule 01/28/2021 - 01/31/2021 Provider: Gio pompa MD Diagnosis: twice a day DO NOT FILL UNTIL 01-29-2021 Last Documented On 1 8:34AM By Bernard Noland ; [facility] Acetaminophen 500 MG Oral Tablet 01/28/2021 - 02/27/2021 Provider: Gio Noland MD Diagnosis: 2 three times a day DO NOT FILL UNTIL 1 Last Documented On 1 8:34AM By Bernard Noland ; [facility] Ondansetron HCl 4 MG Oral Tablet 01/28/2021 - 02/02/2021 Provider: Gio Noland MD Diagnosis: [id number] DO NOT FILL UNTIL 01-29-2021 Last Documented On 1 8:36AM By Bernard Noland ; [facility] oxyCODONE HCl 5 MG Oral Tablet 01/28/2021 - 02/02/2021 Provider: Gio pompa MD Diagnosis: 1-2 po q 4-6h DO NOT FILL UNTIL 01-29-2021 Last Documented On 1 8:47AM By Bernard Noland ; [facility] Neurontin 300 MG Oral Capsule 01/28/2021 - 04/28/2021 Provider: Gio pompa MD Diagnosis: 1 every bedtime DO NOT FILL UNTIL 01-29-2021 Last Documented On 1 8:47AM By Bernard Noland ; [facility] Dilaudid 2 MG Oral Tablet 04/15/2020 - 04/17/2020 Provider: Gio pompa MD Diagnosis: 1-2 po q6h prn pain (RESCUE PAIN) DO NOT FILL UNTIL SURGERY DATE 04/19/2020 Last Documented On 0 12:41PM By Erin Prado ; [facility] Neurontin 300 MG Oral Capsule 04/15/2020 - 07/14/2020 Provider: Gio pompa MD Diagnosis: 1 every bedtime DO NOT FERNANDA L UNTIL SURGERY DATE 04/19/2020 Last Documented On 0 12:41PM By [email or web address] ; [facility] traMADol HCl 50 MG Oral Tablet 04/15/2020 - 04/20/2020 Provider: Gio pompa MD Diagnosis: 1-2 po q6h prn pain DO NOT FILL UNTIL SURGERY DATE 04/19/2020 Last Documented On 0 12:41PM By [email or web address] ; [facility] oxyCODONE HCl 5 MG Oral Tablet 04/15/2020 - 04/20/2020 Provider: Gio pompa MD Diagnosis: 1-2 po q6h prn pain DO NOT FILL UNTIL SURGERY DATE 04/19/2020 Last Documented On 0 12:40PM By [email or web address] ; [facility] Zofran 4 MG Oral Tablet 04/15/2020 - 04/20/2020 Provid er: Gio Noland MD Diagnosis: [id number] DO NOT FILL UNTIL SURGERY DATE 04/19/2020 Last Documented On 0 12:59PM By [email or web address] ; [facility] Keflex 500 MG Oral Capsule 04/15/2020 - 04/18/2020 Provider: Gio pompa MD Diagnosis: 1 every 6 hours DO NOT FERNANDA L UNTIL SURGERY DATE 04/19/2020 Last Documented On 0 12:59PM By [email or web address] ; [facility] Mobic 15 MG Oral Tablet 04/15/2020 - 05/15/2020 Provid er: Gio Noland MD Diagnosis: once a day DO NOT FILL UNT [place] SURGERY DATE 04/19/2020 Last Documented On 0 12:59PM By [email or web address] ; [facility] Colace 100 MG Oral Capsule 04/15/2020 - 07/14/2020 Provider: Gio pompa MD Diagnosis: 1-2 tabs daily DO NOT FILL UNTIL SURGERY DATE 04/19/2020 Last Documented On 0 12:43PM By [email or web address] ; [facility] Acetaminophen 500 MG Oral Tablet 04/15/2020 - 05/15/2020 Provider: Gio Noland MD Diagnosis: 2 three times a day DO NOT FILL UNTIL SURGERY DATE 04/19/2020 Last Documented On 0 12:43PM By Erin Prado ; [facility] Medications Administered Includes: Administered Medications from this encounter No Administered Medications Recorded Results Includes: Results discussed during this encounter No Results Recorded For Specified Dates History of Present Illness Includes: History of Present Illness from this encounter SUKHDEEP Hill is a 60 year old female. - Allergy list reviewed - Problem list reviewed - Medication reconciliation performed - Medication list reviewed with patient Social History Description Last Updated Smoker 04/24/2021 Last Documented On 2 8:16AM ; [facility] Yes, current smoker. 01/16/2021 Last Documented On 2 8:16AM ; [facility] Non-smoker 07/11/2020 Last Documented On 2 8:16AM ; [facility] No tobacco use 01/05/2020 Last Documented On 2 8:16AM ; [facility] Smoking status : Never smoker 01/05/2020 Last Documented On 2 8:16AM ; [facility] Caffeine use 01/05/2020 Last Documented On 2 8:16AM ; [facility] Current smoker 01/05/2020 Last Documented On 2 8:16AM ; [facility] Exercising regularly 01/05/2020 Last Documented On 2 8:16AM ; [facility] No recent change in diet 01/05/2020 Last Documented On 2 8:16AM ; [facility] Not using alcohol 01/05/2020 Last Documented On 2 8:16AM ; [facility] Not using drugs 01/05/2020 Last Documented On 2 8:16AM ; [facility] Procedures and Surgical History Surgical History Last Updated History of hysterectomy 01/05/2020 Last Documented On 2 8:16AM ; [facility] History of total knee arthroplasty 01/04 Last Documented On 2 8:16AM ; [facility] Medical History Includes: Medical History addressed during this encounter Description Last Updated Arthritis 01/16/2021 Last Documented On 2 8:16AM ; [facility] History of Blood Transfusion 01/16/2021 Last Documented On 2 8:16AM ; [facility] History of Cancer 01/16/2021 Last Documented On 2 8:16AM ; [facility] History of osteoporosis 01/16/2021 Last Documented On 2 8:16AM ; [facility] Hysterectomy 01/16/2021 Last Documented On 2 8:16AM ; [facility] Past Surgical History: tonsils, cataracs 01/16/2021 Last Documented On 2 8:16AM ; [facility] Recent immunization for flu 01/16/2021 Last Documented On 2 8:16AM ; [facility] Total hip replacement 01/16/2021 Last Documented On 2 8:16AM ; [facility] No recent immunization for pneumococcal pneumonia 11/05/2020 Last Documented On 2 8:16AM ; [facility] blood transfusion, cataracs 01/05/2020 Last Documented On 2 8:16AM ; [facility] A previous fracture 01/05/2020 Last Documented On 2 8:16AM ; [facility] Arthritic joint problems 01/05/2020 Last Documented On 2 8:16AM ; [facility] Family History Includes: Family History addressed during this encounter Description Last Updated Diabetes mellitus 01/16/2021 Last Documented On 2 8:16AM ; [facility] Family history of cancer 01/05/2020 Last Documented On 2 8:16AM ; [facility] Family history of diabetes mellitus 12/23 Last Documented On 2 8:16AM ; [facility] Family history of hypertension 0 Last Documented On 2 8:16AM ; [facility] Review of Systems Includes: Review of Systems [...] complaint of seasonal allergic reaction. reviewed on 07/03/2021 Mental Status Includes: Mental Status from this encounter Description No anxiety Functional Status Includes: Functional Status from this encounter No Functional Status Recorded Physical Exam Includes: Physical Exam from this encounter No Physical Exam Recorded Allergies Includes: Active Allergies Substance Type Reaction Onset Date Resolved Date Statu s Ultram Allergy 11/05/2020 Active Last Documented On 3 9:24AM ; [facility] Encounters Encounter Provider Location Date Check-In Time Check- Out Time Diagnosis INJECTION Gulshan Tavarez PA-C [facility] 2 8:06AM 8:34AM Insurance Includes: Active Insurance Policies Plan Name Member ID Group # Subscriber Relationship Effect yaz Dates 1 - Medicare Part B [facility] [id number] Jenni May Self 04/24/2023 - Unknown 2 - [facility] [id number] Jenni May Self 10/25/2021 - Unknown Clinical Notes Includes: Clinical Notes from this encounter No Clinical Notes Recorded
--- OUTSIDE RECORDS SUMMARY | 2025-08-10 07:34 | XMS_ITS | Patient Health Record ---
Author Organization [facility] Address [address] [place] [address] Care Team Providers Care Pharmacy Innovation Assistant Name Role Phone Dorawilliam David Primary Care Provider Jah Jiménez Unavailable [phone] Dom Garsia Unavailable [phone] Marshall Love Unavailable Unavailable Allergies No Known [...] by provider) Interpretation:Normal Performing Lab: Notes/Report: Normal Reason For Referral No Information Medications Medication SIG (Take, Route, Frequency, Duration) Notes Start Date End Date Status Narcan 4 MG/0.1ML as directed Nasally 09/14/2024 Active Diclofenac Sodium 75 MG TAKE 1 TABLET BY MOUTH EVERY 12 HOURS WITH FOOD Orally Twice a day; Duration: 30 days 10/29/2025 Active Nwmygxqso-Uhbscman-BI 30-2-10 MG/5ML Oral; Duration: 4 Days Not -Taking predniSONE 20 MG Oral; Duration: 5 Days Not-Taking oxyCODONE-Acetaminophen 5-325 MG 1tablet Orally twice daily; Duration: 30 days 08/03/2025 08/30/2025 Active Meloxicam 15 MG Oral; Duration: 4 Days Not-Taking Azithromycin 250 MG Oral; Duration: 5 Days Active Albuterol Sulfate HFA 108 (90 Base) MCG/ACT Inhalation; Duration: 30 Days Active Benzonatate 100 MG Oral; Duration: 10 Days Active Immunizations Vaccine Route Administration [...] Unknown 08/13/2023 Administered Influenza, unspecified formulation (CPT 63064 Inactive) Unknown 08/27/2015 Administered GIVEN BY PCP PER PT Influenza, unspecified formulation (CPT 85864 Inactive) Unknown 08/27/2015 Refused Influenza, unspecified formulation (CPT 85100 Inactive) Unknown 02/11/2017 Administered Pneumococcal conjugate PCV [...] W/U Status Risk Notes Problem Tobacco user (722279735) Nicotine dependence, unspecified, uncomplicated (F17.200) Active confirmed Problem Chronic pain (87097347) Other chronic pain (G89.29) Active confirmed Problem Chronic pain syndrome (307240810) Chronic pain syndrome (G89.4) Active confirmed Problem Lumbosacral spondylosis without myelopathy (07545467) Other spondylosis with radiculopathy, lumbar region (M47.26) Active confirmed Problem Lumbosacral spondylosis without myelopathy (24222558) Other spondylosis, lumbar region (M47.896) Active confirmed Problem Displacement of lumbar intervertebral disc without myelopathy (86946405) Other intervertebral disc displacement, lumbar region (M51.26) Active confirmed Problem Lumbar radiculopathy (104436109) Radiculopathy, lumbar region (M54.16) Active confirmed Problem Arthralgia of the pelvic region and thigh (018339296) Left hip pain (M25.552) Active confirmed Problem Right knee pain (604320744281421) Right knee pain (M25.561) Active confirmed Problem Pain in sacrum (finding) (7135176800) Sacral pain (M53.3) Active confirmed Problem Left knee pain (786453825131386) Left knee pain (M25.562) Active confirmed Problem Osteoarthritis of knee (330496828) Osteoarthritis of right knee (M17.9) Active confirmed Problem Arthralgia of the ankle and/or foot (643518356) Right ankle pain (M25.571) Active confirmed Problem Osteoarthritis of multiple joints (510013323) Osteoarthritis of multiple joints, unspecified osteoarthritis type (M15.9) Active confirmed Problem Pain in limb (09822428) Pain of right lower extremity (M79.604) Active confirmed Problem High risk drug monitoring status (570966233) Chronically on opiate therapy (Z79.891) Active confirmed Vital Signs Heart Rate 78 /min 07/31/2025 Oximetry 94 % 07/31/2025 Blood pressure diastolic 84 mm Hg 07/31/2025 Height 63 in 07/31/2025 Blood pressure systolic 138 mm Hg 07/31/2025 Weight 185 lbs 07/31/2025 BMI 32.77 kg/m2 07/31/2025 Encounters Encounter Location Date Provider Diagnosis [facility] [address] [place] [address] 10/19/2024 Jah Jiménez Left hip pain M25.552 and Right knee pain M25.561 [facility] [address] [id number] 12/05/2024 Jah Klickovich Left hip pain M25.552 [facility] [address] [place] [address] 01/02/2025 Jah Klickovich Left hip pain M25.552 [facility] [address] [place] [address] 01/30/2025 Jah Klickovich Right knee pain M25.561 and Left hip pain M25.552 [facility] [address] [place] [address] 02/27/2025 Jah Klickovich Right knee pain M25.561 ; Radiculopathy, lumbar region M54.16 and Left hip pain M25.552 [facility] [address] [place] [address] 05/29/2025 Jah Klickovich Radiculopathy, lumbar region M54.16 [facility] [address] [place] [address] 06/26/2025 Jah Klickovich Radiculopathy, lumbar region M54.16 and Hip pain, right M25.551 [facility] [address] [place] [address] 07/31/2025 Jah Klickovich Radiculopathy, lumbar region M54.16 [facility] [address] [place] [address] 08/17/2024 Marshall Scurry Left hip pain M25.552 and Sacral pain M53.3 [facility] [address] [place] [address] 09/14/2024 Marshall Scurry Sacral pain M53.3 ; Chronic pain syndrome G89.4 ; Left hip pain M25.552 and Right knee pain M25.561 [facility] [address] [place] [address] 04/03/2025 Jah Klickovich Radiculopathy, lumbar region M54.16 ; Right knee pain M25.561 and Left hip pain M25.552 [facility] [address] [place] [address] 05/01/2025 Jah Klickrjh Radiculopathy, lumbar region M54.16 ; Left hip pain M25.552 and Pain of right lower extremity M79.604 [facility] [address] [place] [address] 07/17/2025 Jah Klickgera Radiculopathy, lumbar region M54.16 and Right hip pain M25.551 [facility] [address] [place] [address] 08/17/2024 Jah Klickovich Left hip pain M25.552 [facility] [address] [place] [address] 09/14/2024 Jah Klickovich Left hip pain M25.552 [facility] [address] [place] [address] 10/19/2024 Jah Klickovich Left hip pain M25.552 [facility] [address] [place] [address] 10/19/2024 Jah Klickrj [facility] [address] [place] [address] 12/05/2024 Jah Klickovich Left hip pain M25.552 [facility] [address] [place] [address] 01/02/2025 Jah Klickovich Left hip pain M25.552 [facility] [address] [place] [address] 01/31/2025 Jah Klickovich Right knee pain M25.561 [facility] [address] [place] [address] 02/27/2025 Jah Klickovich Right knee pain M25.561 [facility] [address] [place] [address] 04/03/2025 Jah Jiménez Radiculopathy, lumbar region M54.16 [facility] [address] [place] [address] 04/05/2025 Jah Jiménez [facility] [address] [place] [address] 05/01/2025 Jah Jiménez Radiculopathy, lumbar region M54.16 [facility] [address] [place] [address] 05/29/2025 Jah Shultz Radiculopathy, lumbar region M54.16 [facility] [address] [place] [address] 06/26/2025 Jah Shultz Radiculopathy, lumbar region M54.16 [facility] [address] [place] [address] 07/03/2025 Jah Jiménez [facility] [address] [place] [address] 07/16/2025 Jah Jiménez [facility] [address] [place] [address] 07/31/2025 Jah Shultz Radiculopathy, lumbar region M54.16 Assessments Encounter Date Diagnosis (ICD Code) Assessment Notes Treatment Notes Treatment Clinical Notes Section Notes 08/17/2024 Left hip pain (ICD-10 - M25.552) [...] 06/26/2025 Radiculopathy, lumbar region (ICD-10 - M54.16) 07/17/2025 Radiculopathy, lumbar region (ICD-10 - M54.16) 07/31/2025 Radiculopathy, lumbar region (ICD-10 - M54.16) 07/31/2025 Radiculopathy, lumbar region (ICD-10 - M54.16) 04/03/2025 Right knee pain (ICD-10 - M25.561) 07/17/2025 Right hip pain (ICD-10 - M25.551) 06/26/2025 Hip pain, right (ICD-10 - M25.551) [...] 04/03/2025 Left hip pain (ICD-10 - M25.552) 08/17/2024 Other The patient is stable with [...] FLEXION AND EXTENSION ON LY 04/03/2025 MRI HIP RIGHT WO CONTRAST 07/17/2025 MRI LUMBAR SPINE WO CONTRAST 04/03/2025 [facility] 04/20/2024 [facility] 07/20/2024 [facility] 10/19/2024 [facility] 01/30/2025 [facility] 05/01/2025 [facility] 07/31/2025 Next Appt Details Provider Name:Jah Clayton gera, 08/28/2025 08:30:00 AM, [address] [place], [address], Insurance Providers Payer Name Payer Address Payer Phone Subscriber Number Group Number Insured Name Patient Relationship to Insured Coverage Start Date Coverage End Date [employer] [address] [address] [place] [address] [id number] February, Self - patient is the insured 4 Medical (General) History Medical History History ICD Code Cancer/Tumor Hypercholesterolemia Surgical History Surgery Date(Month/Year) Tonsilectomy 1974 Hysterectomy 1993 Eye Surgery Hip Replacement Surgery 2006 RIGHT KNEE REPLACEMENT 04/2020
--- OUTSIDE RECORDS SUMMARY | 2025-08-10 07:34 | XMS_ITS ---
Author Organization [facility] , [facility] Address [address] [place] [address] Phone Care Team Providers Care Millinery Copyist Name Role Phone Nuzhat GARCIA, Gio Barnes Unavailable [phone] Vera GARCIA, Steven Collazo Unavailable [phone] Reason for Referral Date Encounter Description Provider Reason for Referral 08/26/23 Follow Up Gio pompa MD Referral To Physician 07/09/22 Follow Up Gio pompa MD Referral To Physician 12/09/21 SECOND OPINION Marshall Acosta MD Re ferral To Physician - see pcp for bp 07/03/21 Follow Up Gio pompa MD Referral To Physician - see pcp for bp 01/16/21 Follow Up Gio pompa MD Referral To Physician 12/26/20 Follow Up Gio pompa MD Referral To Physician 11/21/20 Follow Up Gio pompa MD Referral To Physician 11/05/20 NEW PROBLEM/EST PT Gio Noland MD Referral To Physician 07/11/20 Post Op Gio pompa MD Referral To Physician Problems Includes: Active, inactive, and resolved Problems All Visits Onset Date Resolved Date Provider Condition S tatus Joint Pain Hip Left 11/21/2020 Taz Noland MD Active Last Documented On 1 2:39PM ; [facility] Joint Pain Left Knee 11/05/2020 Gio Noland MD Active Last Documented On 1 8:06AM ; [facility] Joint Pain Right Knee 01/05/2020 Gio Noland MD Active Last Documented On 0 9:26AM ; [facility], [facility] Plan of Treatment Pending Tests Order Diagnosis Results Due Ordering P rovider Radiology - MRI MRI Hip 12/05/20 Gio Noland MD Last Documented On 1 9:57AM ; [facility], [facility] Radiology - MRI MRI L Knee 12/05/20 Gio Noland MD Last Documented On 1 9:57AM ; [facility], [facility] Denehy Labs - ESR/CRP ESR/CRP 10/30/21 [facility] delores Noland MD Last Documented On 2 9:27AM ; [facility], [facility] Radiology - Bone Scan Total Body 11/13/21 Chr delores Noland MD Last Documented On 2 9:27AM ; [facility], [facility] Future Appointments Date Time Location Provi kalani Follow Up 08/29/2025 9:30AM [facility] Gio Noland MD Last Documented On 5 11:41AM ; [facility], [facility] Instructions to patient Lose weight Last Documented On 3 9:24AM ; [facility] Lose weight Last Documented On 2 9:39AM ; [facility] Lose weight Last Documented On 2 12:02PM ; [facility], [facility] Intervention and counseling on cessation of tobacco use Last Documented On 2 8:12AM ; [facility] Lose weight Last Documented On 2 8:12AM ; [facility] Instructions for patient Last Documented On 2 9:27AM ; [facility] Lose weight Last Documented On 2 10:21AM ; [facility] Instructions for patient Last Documented On 1 10:47AM ; [facility] Instructions for patient Last Documented On 1 10:11AM ; [facility] Instructions for patient Last Documented On 1 2:45PM ; [facility] Instructions for patient Last Documented On 1 10:50AM ; [facility] Instructions for patient Last Documented On 1 12:13PM ; [facility] Instructions for patient Last Documented On 1 2:41PM ; [facility] Instructions for patient Last Documented On 1 8:06AM ; [facility] Instructions for patient Last Documented On 0 8:43AM ; [facility] Instructions for patient Last Documented On 0 10:36AM ; [facility] Instructions for patient to see pcp for bp Last Documented On 0 8:46AM ; [facility] Instructions for patient to see pcp for bp Last Documented On 0 7:54AM ; [facility] Instructions for patient to see pcp for bp Last Documented On 0 9:48AM ; [facility] Assessments Includes: Assessments for all patient encounters No Assessments Recorded Instructions Includes: Instructions for all patient encounters Instructions to patient Lose weight Last Documented On 3 9:24AM ; [facility] Lose weight Last Documented On 2 9:39AM ; [facility] Lose weight Last Documented On 2 12:02PM ; [facility] Intervention and counseling on cessation of tobacco use Last Documented On 2 8:12AM ; [facility] Lose weight Last Documented On 2 8:12AM ; [facility] Instructions for patient Last Documented On 2 9:27AM ; [facility] Lose weight Last Documented On 2 10:21AM ; [facility] Instructions for patient Last Documented On 1 10:47AM ; [facility] Instructions for patient Last Documented On 1 10:11AM ; [facility] Instructions for patient Last Documented On 1 2:45PM ; [facility] Instructions for patient Last Documented On 1 10:50AM ; [facility] Instructions for patient Last Documented On 1 12:13PM ; [facility] Instructions for patient Last Documented On 1 2:41PM ; [facility] Instructions for patient Last Documented On 1 8:06AM ; [facility], [facility] Instructions for patient Last Documented On 0 8:43AM ; [facility] Instructions for patient Last Documented On 0 10:36AM ; [facility] Instructions for patient to see pcp for bp Last Documented On 0 8:46AM ; [facility], [facility] Instructions for patient to see pcp for bp Last Documented On 0 7:54AM ; [facility], [facility] Instructions for patient to see pcp for bp Last Documented On 0 9:48AM ; [facility], [facility] Medical Equipment - Implanted Devices Includes: Current and historical Devices No Medical Equipment Recorded Medications Includes: Current and historical Medications Current Medications (continue as prescribed) oxyCODONE-Acetaminophen 5-32 5 MG Oral Tablet 06/16/2022 Provider: Jah Jiménez Md Diagnosis: Last Documented On 2 9:39AM By Isa Fu ; [facility], [facility] Gralise 600 MG Oral Tablet 06/11/2022 Provider: Tessa Jiménez Md Diagnosis: Last Documented On 2 9:39AM By Isa Fu ; [facility], [facility] Past Medications on file Diclofenac Sodium 75 MG Oral Tablet Delayed Release 07/09/2022 - 08/08/2022 Provider: Jah kamara Md Diagnosis: Last Documented On 2 9:39AM By Isa Fu ; [facility], [facility] Ibuprofen 600 MG Oral Tablet 04/24/2021 - 05/24/2021 Provider: Gio pompa MD Diagnosis: twice a day Last Documented On 1 10:37AM By Aby Lr ; [facility], [facility] Meloxicam 15 MG Oral Tablet 01/28/2021 - 02/11/2021 Provider: Gio pompa MD Diagnosis: once a day DO NOT FILL UNTIL 01-29-2021 Last Documented On 1 8:35AM By Bernard Noland ; [facility], [facility] Colace 100 MG Oral Capsule 01/28/2021 - 04/28/2021 Provider: Gio pompa MD Diagnosis: 1-2 tabs daily DO NOT FILL UNTIL 01-29-2021 Last Documented On 1 8:35AM By Bernard Noland ; [facility] Cefadroxil 500 MG Oral Capsule 01/28/2021 - 01/31/2021 Provider: Gio pompa MD Diagnosis: twice a day DO NOT FILL UNTIL 01-29-2021 Last Documented On 1 8:34AM By Bernard Noland ; [facility] Acetaminophen 500 MG Oral Tablet 01/28/2021 - 02/27/2021 Provider: Gio Noland MD Diagnosis: 2 three times a day DO NOT FILL UNTIL Last Documented On 1 8:34AM By Bernard Noland ; [facility] Ondansetron HCl 4 MG Oral Tablet 01/28/2021 - 02/02/2021 Provider: Gio Noland MD Diagnosis: [id number] DO NOT FILL UNTIL 01-29-2021 Last Documented On 1 8:36AM By Bernard Noland ; [facility] oxyCODONE HCl 5 MG Oral Tablet 01/28/2021 - 02/02/2021 Provider: Gio pompa MD Diagnosis: 1-2 po q 4-6h DO NOT FILL UNTIL 01-29-2021 Last Documented On 1 8:47AM By Bernard Noland ; [facility] Neurontin 300 MG Oral Capsule 01/28/2021 - 04/28/2021 Provider: Gio pompa MD Diagnosis: 1 every bedtime DO NOT FILL UNTIL 01-29-2021 Last Documented On 1 8:47AM By Bernard Noland ; [facility] Horizant 600 MG Oral Tablet Extended Release 11/20/2020 - 07/09/2022 Provider: Jah pabon Md Diagnosis: Last Documented On 2 9:39AM By Isa Fu ; [facility] Diclofenac Sodium 75 MG Oral Tablet Delayed Release 11/19/2020 - 07/09/2022 Provider: Jah kamara Md Diagnosis: Last Documented On 2 9:39AM By Isa Fu ; [facility] oxyCODONE-Acetaminophen 5-32 5 MG Oral Tablet 10/23/2020 - 07/09/2022 Provider: Jah Jiménez Md Diagnosis: Last Documented On 2 9:39AM By Isa Fu ; [facility] Dilaudid 2 MG Oral Tablet 04/15/2020 - 04/17/2020 Provider: Gio pompa MD Diagnosis: 1-2 po q6h prn pain (RESCUE PAIN) DO NOT FILL UNTIL SURGERY DATE 04/19/2020 Last Documented On 0 12:41PM By [employer] ; [facility] Neurontin 300 MG Oral Capsule 04/15/2020 - 07/14/2020 Provider: Gio opmpa MD Diagnosis: 1 every bedtime DO NOT FERNANDA L UNTIL SURGERY DATE 04/19/2020 Last Documented On 0 12:41PM By [employer] ; [facility] traMADol HCl 50 MG Oral Tablet 04/15/2020 - 04/20/2020 Provider: Gio pompa MD Diagnosis: 1-2 po q6h prn pain DO NOT FILL UNTIL SURGERY DATE 04/19/2020 Last Documented On 0 12:41PM By [employer] ; [facility] oxyCODONE HCl 5 MG Oral Tablet 04/15/2020 - 04/20/2020 Provider: Gio pompa MD Diagnosis: 1-2 po q6h prn pain DO NOT FILL UNTIL SURGERY DATE 04/19/2020 Last Documented On 0 12:40PM By [employer] ; [facility] Zofran 4 MG Oral Tablet 04/15/2020 - 04/20/2020 Provid er: Gio Noland MD Diagnosis: 4mbw3-9m DO NOT FILL UNTIL SURGERY DATE 04/19/2020 Last Documented On 0 12:59PM By [employer] ; [facility] Keflex 500 MG Oral Capsule 04/15/2020 - 04/18/2020 Provider: Gio pompa MD Diagnosis: 1 every 6 hours DO NOT FERNANDA L UNTIL SURGERY DATE 04/19/2020 Last Documented On 0 12:59PM By Erin [place] ; [facility] Mobic 15 MG Oral Tablet 04/15/2020 - 05/15/2020 Provid er: Gio Noland MD Diagnosis: once a day DO NOT FILL UNT [place] SURGERY DATE 04/19/2020 Last Documented On 0 12:59PM By [employer] ; [facility] Colace 100 MG Oral Capsule 04/15/2020 - 07/14/2020 Provider: Gio pompa MD Diagnosis: 1-2 tabs daily DO NOT FILL UNTIL SURGERY DATE 04/19/2020 Last Documented On 0 12:43PM By [employer] ; [facility] Acetaminophen 500 MG Oral Tablet 04/15/2020 - 05/15/2020 Provider: Gio Noland MD Diagnosis: 2 three times a day DO NOT FILL UNTIL SURGERY DATE 04/19/2020 Last Documented On 0 12:43PM By [email or web address] [place] ; [facility] Diclofenac Sodium 75 MG Oral Tablet Delayed Release 01/05/2020 - 11/21/2020 Provider: Diagnosis: Last Documented On 1 2:41PM By Roxann Weathers ; [facility] Horizant 600 MG Oral Tablet Extended Release 0 - 11/21/2020 Provider: Diagnosis: Last Documented On 1 2:41PM By Roxann Weathers ; [facility] Percocet 5-325 MG Oral Tablet 01/05/2020 - 11/21/2020 Provider: Diagnosis: Last Documented On 1 2:41PM By Roxann Weathers ; [facility], [facility] Medications Administered Includes: Administered Medications in patient's chart No Administered Medications Recorded Results Includes: Results from 08/10/2024 through 08/10/2025 No Results Recorded For Specified Dates History of Present Illness History of Present Illness not supported for this document type No History of Present Illness Recorded Social History Description Last Updated Tobacco non-user 07/09/2022 Last Documented On 2 12:51PM ; [facility] Smoker 04/24/2021 Last Documented On 1 10:47AM ; [facility] Yes, current smoker. 01/16/2021 Last Documented On 1 3:13PM ; [facility] Non-smoker 07/11/2020 Last Documented On 0 9:28AM ; [facility] No tobacco use 01/05/2020 Last Documented On 0 10:23AM ; [facility] Smoking status : Never smoker 01/05/2020 Last Documented On 0 10:23AM ; [facility] Caffeine use 01/05/2020 Last Documented On 0 10:23AM ; [facility] Current smoker 01/05/2020 Last Documented On 0 10:23AM ; [facility] Exercising regularly 01/05/2020 Last Documented On 0 10:23AM ; [facility] No recent change in diet 01/05/2020 Last Documented On 0 10:23AM ; [facility] Not using alcohol 01/05/2020 Last Documented On 0 10:23AM ; [facility] Not using drugs 01/05/2020 Last Documented On 0 10:23AM ; [facility], [facility] Procedures and Surgical History Surgical History Last Updated History of hysterectomy 01/05/2020 Last Documented On 0 10:23AM ; [facility] History of total knee arthroplasty 01/04 Last Documented On 0 10:23AM ; [facility] Medical History Includes: Medical History in patient's chart Description Last Updated Arthritis 01/16/2021 Last Documented On 1 3:13PM ; [facility] History of Blood Transfusion 01/16/2021 Last Documented On 1 3:13PM ; [facility] History of Cancer 01/16/2021 Last Documented On 1 3:13PM ; [facility] History of osteoporosis 01/16/2021 Last Documented On 1 3:13PM ; [facility], [facility] Hysterectomy 01/16/2021 Last Documented On 1 3:13PM ; [facility] Past Surgical History: tonsils, cataracs 01/16/2021 Last Documented On 1 3:13PM ; [facility], [facility] Recent immunization for flu 01/16/2021 Last Documented On 1 3:13PM ; [facility] Total hip replacement 01/16/2021 Last Documented On 1 3:13PM ; [facility] No recent immunization for pneumococcal pneumonia 11/05/2020 Last Documented On 1 10:58AM ; [facility] blood transfusion, cataracs 01/05/2020 Last Documented On 0 10:23AM ; [facility] A previous fracture 01/05/2020 Last Documented On 0 10:23AM ; [facility] Arthritic joint problems 01/05/2020 Last Documented On 0 10:23AM ; [facility] Family History Includes: Family History in patient's chart Description Last Updated Diabetes mellitus 01/16/2021 Last Documented On 1 3:13PM ; [facility] Family history of cancer 01/05/2020 Last Documented On 0 10:23AM ; [facility] Family history of diabetes mellitus 12/23 Last Documented On 0 10:23AM ; [facility] Family history of hypertension 0 Last Documented On 0 10:23AM ; [facility], [facility] Review of Systems Review of Systems not supported for this document type No Review of Systems Recorded Mental Status Description No anxiety Functional Status No Functional Status Recorded Physical Exam Physical Exam not supported for this document type No Physical Exam Recorded Immunizations Includes: Immunizations in patient's chart Vaccine Dose # Date Site Reaction(s) Status Source Influenza 1 05/27/2020 Complete (Reported) Patient Last Documented On 1 2:57PM ; [facility] Allergies Includes: Active, inactive, and resolved Allergies Substance Type Reaction Onset Date Resolved Date Statu s Ultram Allergy 11/05/2020 Active Last Documented On 3 9:24AM ; [facility], [facility] Insurance Includes: Active Insurance Policies Plan Name Member ID Group # Subscriber Relationship Effect yaz Dates 1 - Medicare Part B [facility] [id number] Jenni May Self 04/24/2023 - Unknown 2 - [facility] [id number] Jenni May Self 10/25/2021 - Unknown Clinical Notes Includes: Signed Clinical Notes starting from 10/08/2022 No Clinical Notes Recorded
--- OUTSIDE RECORDS SUMMARY | 2025-08-10 07:35 | XMS_ITS | Clinical Summary ---
Author Organization [facility] , [facility] Address [address] [place] [address] Phone Care Team Providers Care Ceramic Tile Setter Name Role Phone Nuzhat GARCIA, Gio Barnes Unavailable [phone] Vera GARCIA, Steven Collazo Unavailable [phone] Reason for Visit and Chief Complaint The Chief Complaint is: left rubia pain Problems Includes: Problems addressed during this encounter and other active Problems All Visits Onset Date Resolved Date Provider Condition S tatus Joint Pain Hip Left 11/21/2020 Taz Noland MD Active Last Documented On 1 2:39PM ; [facility] Joint Pain Left Knee 11/05/2020 Gio Noland MD Active Last Documented On 1 8:06AM ; [facility] Joint Pain Right Knee 01/05/2020 Gio Noland MD Active Last Documented On 0 9:26AM ; [facility] Plan of Treatment NON-SURGICAL PLAN: CONTINUE PHYSICAL THERAPY SMOKING CESSATION TESTS ORDERED: - Last Documented On 01/09/2022 11:02AM ; [facility] BLOOD WORK: COBALT AND CHROMIUM FOLLOW UP: [address] Mantilla; LEFT HIP XOA. - Last Documented On 01/09/2022 11:02AM ; [facility] Pending Tests Order Diagnosis Results Due Ordering P rovider Radiology - MRI MRI Hip 12/05/20 Gio Noland MD Last Documented On 1 9:57AM ; [facility] Radiology - MRI MRI L Knee 12/05/20 Gio Noland MD Last Documented On 1 9:57AM ; [facility] Denehy Labs - ESR/CRP ESR/CRP 10/30/21 [facility] [place] delores Noland MD Last Documented On 2 9:27AM ; [facility] Radiology - Bone Scan Total Body 11/13/21 [facility] [place] delores Noland MD Last Documented On 2 9:27AM ; [facility] Future Appointments Date Time Location Provi kalani Follow Up 08/29/2025 9:30AM [facility] Gio Noland MD Last Documented On 5 11:41AM ; [facility], [facility] Instructions to patient Lose weight Last Documented On 2 12:02PM ; [facility] Assessments Includes: Assessments from this encounter Findings LEFT HIP ASPIRATE: WBC 2068, PMNS 21%, NO GROWTH. - Last Documented On 01/09/2022 11:02AM ; [facility] 11 MONTHS S/P LEFT RUBIA REVISION WITH CONSTRAINED LINER PLACEMENT AND LEG SHORTENING. HIP IRRITABLE DURING ROM. NOT SURE IF BETTER THAN BEFORE SURGERY. MINIMAL PROGRESS IN THERAPY. SMOKER. TAKES GABAPENTIN, DICLOFENAC, AND NARCOTICS PRN. DR. SINGH REVIEWED AND COULD NOT SEE ANY OBVIOUS ISSUES. - Last Documented On 01/09/2022 11:02AM ; [facility] Instructions Includes: Instructions from this encounter Instructions to patient Lose weight Last Documented On 2 12:02PM ; [facility] Medical Equipment - Implanted Devices Includes: Current Devices No Medical Equipment Recorded Medications Includes: Medications discussed during this encounter and other current Medications Current Medications (continue as prescribed) oxyCODONE-Acetaminophen 5-32 5 MG Oral Tablet 06/16/2022 Provider: Jah Jiménez Md Diagnosis: Last Documented On 2 9:39AM By Isa Fu ; [facility] Gralise 600 MG Oral Tablet 06/11/2022 Provider: Tessa Jiménez Md Diagnosis: Last Documented On 2 9:39AM By Isa Fu ; [facility] Past Medications on file Diclofenac Sodium 75 MG Oral Tablet Delayed Release 07/09/2022 - 08/08/2022 Provider: Jah kamara Md Diagnosis: Last Documented On 2 9:39AM By Isa Fu ; [facility] Ibuprofen 600 MG Oral Tablet 04/24/2021 - 05/24/2021 Provider: Gio pompa MD Diagnosis: twice a day Last Documented On 1 10:37AM By Aby Lr ; [facility] Meloxicam 15 MG Oral Tablet 01/28/2021 - 02/11/2021 Provider: Gio pompa MD Diagnosis: once a day DO NOT FILL UNTIL 01-29-2021 Last Documented On 1 8:35AM By Bernard Noland ; [facility] Colace 100 MG Oral Capsule 01/28/2021 - 04/28/2021 Provider: Gio pompa MD Diagnosis: 1-2 tabs daily DO NOT FILL UNTIL 01-29-2021 Last Documented On 1 8:35AM By Bernard Noland ; [facility] Cefadroxil 500 MG Oral Capsule 01/28/2021 - 01/31/2021 Provider: Gio pompa MD Diagnosis: twice a day DO NOT FILL UNTIL 01-29-2021 Last Documented On 1 8:34AM By Bernard Noland ; [facility] Acetaminophen 500 MG Oral Tablet 01/28/2021 - 02/27/2021 Provider: Gio Noland MD Diagnosis: 2 three times a day DO NOT FILL UNTIL Last Documented On 1 8:34AM By Bernard Noland ; [facility] Ondansetron HCl 4 MG Oral Tablet 01/28/2021 - 02/02/2021 Provider: Gio Noland MD Diagnosis: 2eeb4-9n DO NOT FILL UNTIL 01-29-2021 Last Documented [...] 04/19/2020 Last Documented On 0 12:41PM By [email or web address] ; [facility] Neurontin 300 MG Oral Capsule 04/15/2020 - 07/14/2020 Provider: Gio pompa MD Diagnosis: 1 every bedtime DO NOT FERNANDA L UNTIL SURGERY DATE 04/19/2020 Last Documented On 0 12:41PM By [email or web address] ; [facility] traMADol HCl 50 MG Oral Tablet 04/15/2020 - 04/20/2020 Provider: Gio pompa MD Diagnosis: 1-2 po q6h prn pain DO NOT FILL UNTIL SURGERY DATE 04/19/2020 Last Documented On 0 12:41PM By [email or web address] ; [facility] oxyCODONE HCl 5 MG Oral Tablet 04/15/2020 - 04/20/2020 Provider: Gio pompa MD Diagnosis: 1-2 po q6h prn pain DO NOT FILL UNTIL SURGERY DATE 04/19/2020 Last Documented On 0 12:40PM By [email or web address] ; [facility] Zofran 4 MG Oral Tablet 04/15/2020 - 04/20/2020 Provid er: Gio Noland MD Diagnosis: 4deg0-2e DO NOT FILL UNTIL SURGERY DATE 04/19/2020 Last Documented On 0 12:59PM By [email or web address] ; [facility] Keflex 500 MG Oral Capsule 04/15/2020 - 04/18/2020 Provider: Gio pompa MD Diagnosis: 1 every 6 hours DO NOT FERNANDA L UNTIL SURGERY DATE 04/19/2020 Last Documented On 0 12:59PM By [email or web address] ; [facility] Mobic 15 MG Oral Tablet 04/15/2020 - 05/15/2020 Provid er: Gio Noland MD Diagnosis: once a day DO NOT FILL UNT [place] SURGERY DATE 04/19/2020 Last Documented On 0 12:59PM By [email or web address] ; [facility] Colace 100 MG Oral Capsule 04/15/2020 - 07/14/2020 Provider: Gio pompa MD Diagnosis: 1-2 tabs daily DO NOT FILL UNTIL SURGERY DATE 04/19/2020 Last Documented On 0 12:43PM By [email or web address] ; [facility] Acetaminophen 500 MG Oral Tablet 04/15/2020 - 05/15/2020 Provider: Gio Noland MD Diagnosis: 2 three times a day DO NOT FILL UNTIL SURGERY DATE 04/19/2020 Last Documented On 0 12:43PM By [email or web address] ; [facility] Medications Administered Includes: Administered Medications from this encounter No Administered Medications Recorded Vital Signs Includes: Vital Signs from this encounter Vital Name 01/01/2022 12:00P Blood Pressure Sitting (mmHg) 215/124 Pulse Rate-Sitting (bpm) 96 Height (in) 63 Weight (lb) 200 Body Mass Index (kg/m2) 35.4 Body Surface Area (m2) 1.9 Note: lorenzo Last Documented: On 01/01/2022 12:01P M ; [facility] Results Includes: Results discussed during this encounter No Results Recorded For Specified Dates History of Present Illness Includes: History of Present Illness from this encounter SUKHDEEP Hill is a 61 year old female. - Allergy list reviewed - Problem list reviewed - Medication list reviewed Social History Description Last Updated Smoker 04/24/2021 Last Documented On 2 11:15AM ; [facility] Yes, current smoker. 01/16/2021 Last Documented On 2 11:15AM ; [facility] Non-smoker 07/11/2020 Last Documented On 2 11:15AM ; [facility] No tobacco use 01/05/2020 Last Documented On 2 11:15AM ; [facility] Smoking status : Never smoker 01/05/2020 Last Documented On 2 11:15AM ; [facility] Caffeine use 01/05/2020 Last Documented On 2 11:15AM ; [facility] Current smoker 01/05/2020 Last Documented On 2 11:15AM ; [facility] Exercising regularly 01/05/2020 Last Documented On 2 11:15AM ; [facility] No recent change in diet 01/05/2020 Last Documented On 2 11:15AM ; [facility] Not using alcohol 01/05/2020 Last Documented On 2 11:15AM ; [facility] Not using drugs 01/05/2020 Last Documented On 2 11:15AM ; [facility] Procedures and Surgical History Surgical History Last Updated History of hysterectomy 01/05/2020 Last Documented On 2 11:15AM ; [facility] History of total knee arthroplasty 01/04 Last Documented On 2 11:15AM ; [facility] Medical History Includes: Medical History addressed during this encounter Description Last Updated Arthritis 01/16/2021 Last Documented On 2 11:15AM ; [facility] History of Blood Transfusion 01/16/2021 Last Documented On 2 11:15AM ; [facility] History of Cancer 01/16/2021 Last Documented On 2 11:15AM ; [facility] History of osteoporosis 01/16/2021 Last Documented On 2 11:15AM ; [facility] Hysterectomy 01/16/2021 Last Documented On 2 11:15AM ; [facility] Past Surgical History: tonsils, cataracs 01/16/2021 Last Documented On 2 11:15AM ; [facility], [facility] Recent immunization for flu 01/16/2021 Last Documented On 2 11:15AM ; [facility] Total hip replacement 01/16/2021 Last Documented On 2 11:15AM ; [facility] No recent immunization for pneumococcal pneumonia 11/05/2020 Last Documented On 2 11:15AM ; [facility], [facility] blood transfusion, cataracs 01/05/2020 Last Documented On 2 11:15AM ; [facility], [facility] A previous fracture 01/05/2020 Last Documented On 2 11:15AM ; [facility], [facility] Arthritic joint problems 01/05/2020 Last Documented On 2 11:15AM ; [facility], [facility] Family History Includes: Family History addressed during this encounter Description Last Updated Diabetes mellitus 01/16/2021 Last Documented On 2 11:15AM ; [facility], [facility] Family history of cancer 01/05/2020 Last Documented On 2 11:15AM ; [facility] Family history of diabetes mellitus 12/23 Last Documented On 2 11:15AM ; [facility] Family history of hypertension 0 Last Documented On 2 11:15AM ; [facility] Review of Systems Includes: Review [...] On 3 9:24AM ; [facility], [facility] Encounters Encounter Provider Location Date Check-In Time Check-Out Time Diagnosis Follow Up Gio Noland MD [facility] 01/02/20 22 10:36AM 12:25PM Insurance Includes: Active Insurance Policies Plan Name Member ID Group # Subscriber Relationship Effect yaz Dates 1 - Medicare Part B [facility] [id number] Jenni May Self 04/24/2023 - Unknown 2 - [facility] [id number] Jenni May Self 10/25/2021 - Unknown Clinical Notes Includes: Clinical Notes from this encounter No Clinical Notes Recorded
--- OUTSIDE RECORDS SUMMARY | 2025-08-10 07:35 | XMS_ITS | Clinical Summary ---
Author Organization [facility] Address [address] [place] [address] Care Team Providers Care Aboriginal Education Worker Coordinator Name Role Phone Provider, No Known Primary [...] ANNUAL PHYSICAL 06/30/2017 HEPATITIS C SCREENING 06/30/2017 INFLUENZA VACCINE 05/25/2025 Care Teams Aboriginal Education Worker Coordinator Relationship Specialty Start Date End Date Provider, No Known [facility] [place] [address] PCP - General 01/02/16
== END 2025-08-10 23:59 | disposition home or self-care (01) ==
PROVIDERS: PCP Physician Assistant; Visit Provider Anesthesiology Pain Medicine
DX: M16.11 Unilateral primary osteoarthritis, right hip (principal)
CPT/HCPCS: 73721